=== PATIENT | male | born 1995 | race Caucasian/White ===

== ENCOUNTER 2024-03-12 00:53 | Inpatient (IN) ==
[2024-03-12 01:31] LABS: Appearance Urine Turbid (Clear); Bacteria Urine Automated 1+ (None Seen); Bilirubin Urine Negative (Negative); Blood Urine Negative (Negative); Cast Urine Automated 0-2 /lpf (0-2); Color Urine Yellow; Glucose Urine UA Negative (Negative); Ketones Urine Negative (Negative); Leukocyte Esterase Urine 1+ (Negative); Nitrite Urine Negative (Negative); Protein Urine Negative (Negative); RBC Urine Automated 0-2 /hpf (0-2); Specific Gravity Urine 1.024 (1.000-1.030); Urobilinogen Urine Negative (Negative)
[2024-03-12 01:33] LABS: Basophils # (auto) 0.05 K/uL (0.00-0.20); Basophils % (auto) 0.5 %; Immature Granulocytes # (auto) 0.05 K/uL (0.01-0.20); Immature Granulocytes % (auto) 0.5 %; Lymphocytes # (auto) 1.63 K/uL (1.20-3.40); Lymphocytes % (auto) 16.5 %; Mean Corpuscular Hemoglobin 27.9 pg (25.0-34.0); Mean Corpuscular Hgb Conc 34.2 g/dL (32.0-36.0); Mean Corpuscular Volume 81.5 fL (80.0-100.0); Mean Platelet Volume 11.4 fL (9.4-12.4); Monocytes # (auto) 0.52 K/uL (0.11-0.59); Monocytes % (auto) 5.3 %; Neutrophils # (auto) 7.51 K/uL (1.40-6.50); Neutrophils % (auto) 76.2 %; Platelet Count 215 K/uL (130-400); RDW Coefficient of Variation 12.5 % (11.5-14.5); RDW Standard Deviation 36.8 fL (36.4-46.3); White Blood Count 9.86 K/ul (4.8-10.8)
[2024-03-12 01:50] LABS: Albumin Globulin Ratio 1.5 (0.9-2); Albumin Level 4.5 gm/dl (3.4-5.0); BUN Creatinine Ratio 15.3 (10-20); Bilirubin,Total 0.4 mg/dl (0.2-1.0); Calcium 9.5 mg/dl (8.6-10.3); Potassium 3.6 mmol/L (3.5-5.1); Total Protein 7.5 gm/dl (6.0-8.3)
[2024-03-12 01:52] LABS: Acetaminophen < 3 ug/ml (10-30); Salicylate < 3.0 mg/dl (3.0-30)
[2024-03-12 01:53] LABS: Amphetamines+Metham, Urine Pos (Neg); Barbiturates, Urine Neg (Neg); Benzodiazepine, Urine Neg (Neg); Cocaine, Urine Neg (Neg); Fentanyl, Urine Neg (Neg); MDMA (Ecstacy), Urine Pos (Neg); Marijuana, Urine Neg (Neg); Methadone, Urine Neg (Neg); Opiate, Urine Neg (Neg); Phencyclidine, Urine Neg (Neg)
[2024-03-12 02:05] LABS: Thyroid Stimulating Hormone 4.298 uIu/ml (0.300-4.500)
--- NOTE | 2024-03-12 03:57 | Emergency Department Note ---
Impression & Plan Suicidal ideation admit to [facility]. ED Provider Note NAME: JENNA COBURN AGE: 28 SEX: Female INFORMANT: Patient ED PROVIDER(S): Desi Headley DO CHIEF COMPLAINT: suicidal thoughts PLAN: Disposition: admitted to [facility]. MEDICAL DECISION MAKING: this is a 28-year-old male patient is transitioning to female who is having suicidal thoughts. Patient had a text message from her friend that was upsetting. She had thoughts of wanting to jump off of a building or overdose on pills. She has a history of autism, ADHD and PTSD. She has a history of self- mutilation. patient was medically cleared here in the emergency department. Urine looked questionably infected but patient has no urinary symptoms. Will await urine culture. Patient was evaluated by the ED psychiatric employment evaluator/case manager. She will admit herself for inpatient psychiatric care. She was accepted to 3 [facility]. Care/management discussed with: ED psychiatric employment evaluator/case manager Triage Nursing notes: reviewed and agree with them. Vital Signs: reviewed and remarkable for hypertension Chronic Medical/Social Conditions affecting care: multiple mental health issues Differential Diagnosis: mood disorder, thought disorder, suicidal ideation HPI: 28 year old Female arrives for evaluation of suicidal ideation. patient received an upsetting text message from her friend and became suicidal. She had thoughts of wanting to jump from building or overdose on pills. The patient and describes having a recent increase to her Wellbutrin level. She does follow with the psychiatrist and a therapist from [facility]. PAST MEDICAL HISTORY: [id number] diabetic, autism, ADHD, PTSD, the patient is transitioning male to female., SOCIAL HISTORY: Student at [employer]; works at [employer]. Denies any significant drug use or alcohol use. HOME MEDICATIONS: see list ALLERGIES: see list VITALS: See Below PHYSICAL EXAMINATION: HEENT: Head - normocephalic and atraumatic. Pupils are equal, round, and reactive to light. Extraocular eye muscles are intact, and sclera are anicteric. Nose - moist nasal mucosa without discharge. Mouth - moist buccal mucosa. Oropharynx is nonerythematous and there is no tonsillar exudate or edema noted. Neck: Supple; no Cervical lymphadenopathy Heart: Regular rate and rhythm. There is a normal S1 and S2 with no murmurs, clicks, or gallops appreciated. Lungs: Clear to auscultation bilaterally with no wheezes, rales, or rhonchi. Abdomen: Soft, completely nontender, nondistended, with good bowel sounds. There are no palpable pulsatile masses or hepatosplenomegaly. There is no guarding, rigidity, or rebound noted. Extremities: Contusion noted over the right ulnar styloid. no other obvious trauma. Skin: warm and dry with good turgor and no rashes. Psych: Patient describes thoughts of suicide with no attempts. Emergency Department course: The patient was evaluated in room A-7. A complete history and physical was performed. Laboratory studies were drawn as above. The patient was medically cleared. She was evaluated by the ED psychiatric employment evaluator/case manager. She is willing to admit herself voluntarily for inpatient psychiatric care. She will be admitted to 3 [facility]. Past Med/Surg History Problem List (Updated 03/12/24 @ 05:25 by Desi Headley DO) Suicidal ideation (Acute) Social History Smoking Status: Never smoker Preferred Language: Fijian Feels Safe at Home: Hesitant to Answer Gender Identity: Transgender Female Allergies Allergies Allergy/AdvReac Type Severity Reaction Status Date / Time banana Allergy Unknown Verified 03/12/24 02:10 kiwi Allergy Unknown Verified 03/12/24 02:10 mushroom Allergy Unknown Verified 03/12/24 02:10 walnut Allergy Unknown Verified 03/12/24 02:10 Home Meds Home Medications Medication Instructions Recorded Confirmed bupropion HCl 300 mg 24 hr tablet, 300 mg PO DAILY 03/12/24 03/12/24 extended release buspirone 15 mg tablet 15 mg PO BID 03/12/24 03/12/24 dextroamphetamine-amphetamine 5 mg 5 mg PO DAILY 03/12/24 03/12/24 tablet dextroamphetamine-amphetamine ER 10 mg PO DAILY 03/12/24 03/12/24 10 mg 24hr capsule,extend release (Adderall XR) estradiol valerate 20 mg/mL 2 mg IM WK 03/12/24 03/12/24 intramuscular oil medroxyprogesterone 10 mg tablet 10 mg PO DAILY 03/12/24 03/12/24 metformin 500 mg tablet 500 mg PO BID 03/12/24 03/12/24 needle (disp) 18 G 18 gauge x 1" 03/12/24 03/12/24 (BD Regular Bevel [place]) prazosin 1 mg capsule 1 mg PO HS 03/12/24 03/12/24 syringe with needle 1 mL 25 gauge 03/12/24 03/12/24 x 5/8" (BD Tuberculin Syringe) Results & Data (ED) Vital Signs Vital Signs - 24 hr 03/12/24 00:59 03/12/24 05:02 Temperature 36.7 C Temperature Source Oral Pulse Rate 97 H Pulse Rate [Left Finger] 90 Pulse Rhythm [Left Finger] Regular Pulse Strength [Left Finger] Normal Respiratory Rate 16 18 Respiratory Effort / Characteristics Non-Labored Non-Labored Spontaneous Respiratory Depth Normal Normal Respiratory Pattern Regular Regular Blood Pressure 150/84 H Blood Pressure [Left Arm] 133/80 Blood Pressure Mean 106 Blood Pressure Mean [Left Arm] 97 Pulse Oximetry 99 99 Oxygen Delivery Method Room Air Room Air Sepsis Recent Fever Within 48 Hours No Sepsis New/Unexplained Change in Mental Status N/A Sepsis Action Taken by Nursing No Action Required Laboratory Data 03/12/24 01:10 03/12/24 01:10 Lab Results 03/12/24 03/12/24 03/12/24 Range/Units 00:58 01:10 01:50 WBC 9.86 (4.8-10.8) K/ul RBC 4.38 (4.20-5.40) M/uL Hgb 12.2 (12.0-16.0) g/dl Hct 35.7 L (37.0-47.0) % MCV 81.5 (80.0-100.0) fL MCH 27.9 (25.0-34.0) pg MCHC 34.2 (32.0-36.0) g/dL RDW Std Deviation 36.8 (36.4-46.3) fL RDW Coeff of Celso 12.5 (11.5-14.5) % Plt Count 215 (130-400) K/uL MPV 11.4 (9.4-12.4) fL Immature Gran % (Auto) 0.5 % Neut % (Auto) 76.2 % Lymph % (Auto) 16.5 % Clinch % (Auto) 5.3 % Eos % (Auto) 1.0 % Baso % (Auto) 0.5 % Neut # (Auto) 7.51 H (1.40-6.50) K/uL Lymph # (Auto) 1.63 (1.20-3.40) K/uL Clinch # (Auto) 0.52 (0.11-0.59) K/uL Eos # (Auto) 0.10 (0.00-0.50) K/uL Baso # (Auto) 0.05 (0.00-0.20) K/uL Immature Gran # (Auto) 0.05 (0.01-0.20) K/uL Sodium 135 L (136-145) mmol/L Potassium 3.6 (3.5-5.1) mmol/L Chloride 104 (98-107) mmol/L Carbon Dioxide 22 (21-32) mmol/L Anion Gap 9 (3-11) BUN 11 (6-23) mg/dl Creatinine 0.72 (0.6-1.2) mg/dl Est Cr Clr Drug Dosing 147.2 ml/min eGFR 117.45 BUN/Creatinine Ratio 15.3 (10-20) Glucose 102 H (70-99(Fasting)) mg/dl Calcium 9.5 (8.6-10.3) mg/dl Total Bilirubin 0.4 (0.2-1.0) mg/dl AST 11 L (13-39) U/L ALT 10 (7-52) U/L Alkaline Phosphatase 47 (34-104) U/L Total Protein 7.5 (6.0-8.3) gm/dl Albumin 4.5 (3.4-5.0) gm/dl Globulin 3.0 (2.5-4.0) gm/dl Albumin/Globulin Ratio 1.5 (0.9-2) TSH 4.298 (0.300-4.500) uIu/ml Urine Color Yellow Urine Appearance Turbid A (Clear) Urine pH 7.0 (4.5-7.5) Ur Specific Goodman 1.024 (1.000-1.030) Urine Protein Negative (Negative) Urine Glucose (UA) Negative (Negative) Urine Ketones Negative (Negative) Urine Blood Negative (Negative) Urine Nitrite Negative (Negative) Urine Bilirubin Negative (Negative) Urine Urobilinogen Negative (Negative) Ur Leukocyte Esterase 1+ H (Negative) Urine WBC (Auto) 11-20 H (0-5) /hpf Urine RBC (Auto) 0-2 (0-2) /hpf U Hyaline Cast (Auto) 0-2 (0-2) /lpf U Epithel Cells (Auto) 6-10 H (0-2) /hpf Urine Bacteria (Auto) 1+ H (None Seen) Salicylates < 3.0 L (3.0-30) mg/dl Urine Opiates Screen Neg (Neg) Ur Methadone, Qual Neg (Neg) Urine Fentanyl Screen Neg (Neg) Acetaminophen < 3 L (10-30) ug/ml Urine Barbiturates Neg (Neg) Ur Phencyclidine (PCP) Neg (Neg) U Amphetamin/Meth Scrn Pos H (Neg) MDMA (Ecstasy) Screen Pos H (Neg) U Benzodiazepines Scrn Neg (Neg) Ur Cocaine Metabolite Neg (Neg) U Marijuana (THC) Screen Neg (Neg) Ethyl Alcohol mg/dL < 10.0 (<10.0) mg/dl SARS-CoV-2, RNA, NAAT NEGATIVE (NEGATIVE) Discharge Plan Visit Data Chief Complaint: Mental Health Evaluation ED Provider: Desi Headley Discharge Problem: Suicidal ideation Patient Disposition: Admitted As Inpatient Prescriptions Prescriptions: No Action medroxyprogesterone 10 mg tablet 10 mg PO DAILY metformin 500 mg tablet 500 mg PO BID Rx Instructions: with meals prazosin 1 mg capsule 1 mg PO HS (DME) needle (disp) 18 G [BD Regular [place]vel [place]] 18 gauge x 1" needle MISCELLANEOUS (DME) BD Tuberculin Syringe 1 mL 25 gauge x 5/8" syringe MISCELLANEOUS estradiol valerate 20 mg/mL oil 2 mg IM WK dextroamphetamine-amphetamine [Adderall XR] 10 mg capsule,extended release 24hr 10 mg PO DAILY Rx Instructions: AM dextroamphetamine-amphetamine 5 mg tablet 5 mg PO DAILY buspirone 15 mg tablet 15 mg PO BID bupropion HCl 300 mg tablet extended release 24 hr 300 mg PO DAILY
[2024-03-12] MEDS ORDERED: ALUMINUM/MAGNESIUM SUSP 30 ML UDC PO PRN (05:33)
[2024-03-12] MEDS ORDERED: SODIUM CHLORIDE 0.65% NA SOLN 45 ML (OCEAN) PRN (05:33)
[2024-03-12] MEDS ORDERED: hydrOXYzine HCl 25 MG TAB PO PRN (05:33)
[2024-03-12] MEDS ORDERED: MAGNESIUM HYDROXIDE SUSP 30 ML UDC PO PRN (05:33)
[2024-03-12] MEDS ORDERED: BISMUTH SUBSALICYLATE 262 MG CHEW PO PRN (05:33)
--- OUTSIDE RECORDS SUMMARY | 2024-03-12 05:50 | External Medical Summary | Summary of Care ---
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 follow up care consistent with assessment ASSESSMENT AND PLAN: Mdd-r, Ptsd, Adhd as per chart review Medications: continue current medications. Consider increase in Buspar, consider addition of Dextromethorphan to Wellbutrin. Continue intake during subsequent visits, explore symptoms of ocd, personality traits. Patient understood the risks, benefits, side-effects and potential complications of current psychiatric medications and gave informed consent to be prescribed psychiatric medications as described above. 2. Laboratory tests: describe EKG July 2023 nsr 3. Therapy: continue individual psychotherapy 4. RTC: Apr 12, 2024 or sooner if needed Patient was informed on ways this clinician can be reached between visits (Lumenzhart message, alternatively call to the supervisor front). Treatment options and alternatives reviewed with patient who agrees with the above plan. Information about current medications was provided to the patient including reasons why medications are being used. Patient understood the risks, benefits, side-effects, and potential complications associated with changes in medications being proposed (both medications being started and medications being discontinued or having dose changed). Patient is making an informed medical decision to follow the recommendations outlined in this note. Directed pt to call with any questions or concerns, worsening symptoms and/or ask for earlier appointment. Greater than 50% of the time was spent counseling or coordinating the care of the patient Risk assessment was performed. This is a patient being treated for chronic mental health conditionsand/or substance use disorder as characterized above; at the time of this visit, there was no indication that this patient was either a risk to self, others, or gravely disabled by symptoms of a mental illness or substance use disorder. At the time of this evaluation, there were enough protective factors in place and it was deemed safe to continue with treatment on an outpatient basis with returnto clinic in the timeframe described above. Kelli Lara participated in developing a crisis plan should he/she experience worsening of symptoms before next follow-up appointment, including being aware of what resources to use according to the urgency and severity of symptoms. Kelli Lara was able to verbalize understanding of the steps necessary to obtain help betweenappointments should be needed, from requesting a phone call, to requesting an appointment sooner, including reaching clinic after hours, or accessing emergency mental health and medical services, either at a local emergency department or by activating mobile crisis teams and EMS. Clifton Rosas DO [facility] [phone] 02/28/2024 2:05 PM documented in this encounter Plan of Treatment Upcoming Encounters Date Type Department Care Team (Late st Contact Info) Description 03/11/2024 3:30 PM EDT Telemedicine Psychology, [address] [place] [address] Argentina Souza LSW [address] [facility] [place] [id number] 04/08/2024 4:00 PM EST Office Visit Family [facility] [address] [place] [address] Analy Renteria MD [address] [place] [address] 04/12/2024 10:30 AM EST Telemedicine Pychiatry, [facility] [address] [place] [phone] Clifton Rosas, DO [address] [place] [phone] Health Maintenance Due Date Last Done Comments Pneumococcal Vaccine: Pediatrics (0 to 5 Years) and At-Risk Patients (6 to 64 Years) (1 of 2 - PCV) 2002 DTap/Tdap Vaccines (1 - Tdap) 11/04/2015 Hepatitis B Vaccine (2 of 3 - 19+ 3-dose series) 09/30/2021 09/02/2021 Diabetic Foot Exam 02/01/2024 01/31/2023, 09/02/2021 GFR 02/01/2024 01/31/2023, 03/0 06/2022, 07/14/2022, Additional history exists Diabetic Eye Exam 03/09/2024 03/09/2023, 09/02/2021 HbA1c 05/24/2024 11/22/2023, 05/15, 01/31/2023, Additional history exists Albumin/Creatinine Ratio 05/26/20242 024, 01/31/2023, 09/02/2021 Depression Monitoring 02/22/2025 02/23/2024 , 02/16/2024, 01/01/2024, Additional history exists Gonorrhea / Chlamydia Screen Discontinued 01/18/2024, 09/01/2023, 05/26/2023, Additional history exists COVID-19 Vaccine Completed 02/16/2024, , 08/20/2020, Additional history exists Influenza Vaccine (FLU shot) Completed 02/16/2024, 01/31/2023, 06/02/2022, Additional history exists HPV (Gardasil) Vaccine Aged Out No lo nger eligible based on patient's age to complete this topic MENINGOCOCCAL (MENACTRA/MENVEO) Aged Out No longer eligible based on patient's age to complete this topic documented as of this encounter Medical Devices Not on filedocumented as of this encounter Visit Diagnoses Diagnosis Episode of recurrent major depressive disorder, unspecified depression episode severity (HCC)- Primary PTSD (post-traumatic stress disorder) Posttraumatic stress disorder Attention deficit hyperactivity disorder (ADHD), unspecified ADHD type CELINA (generalized anxiety disorder) Generalized anxiety disorder documented in this encounter Care Teams Street Inspector Relationship Specialty Start Date End Date Analy Renteria MD [address] [place] [id number] PCP - General Internal Medicine 03/09/23 documented as of this encounter
--- OUTSIDE RECORDS SUMMARY | 2024-03-12 05:50 | External Medical Summary | Summary of Care ---
Author Name Unknown Organization [facility] Address [address] [facility] [place] [address] Phone [phone] Care Team Providers Care Answering Service Agent Name Role Phone Analy Renteria MD Primary Care Provider Reason for Visit * Reason Comments Follow Up * - Authorized Specialty Diagnoses / Procedures Referred By Agatha t Referred To Contact Referral ID Status Reason Start Date Expiration Date V isits Requested Visits Authorized [id number] Authorized 06/15/2023 06/13/2024 [id number] Encounter Details Date Type Department Care Team (Late st Contact Info) Description 02/23/2024 11:00 AM EDT Telemedicine Psychology, [facility] [address] [place] [address] Argentina Souza, SUSSY [address] [place] [address] TY (generalized anxiety disorder)*; Severe episode of recurrent major depressive disorder, without psychotic features (HCC) Allergies Active Allergy Reactions Criticality Noted Date Comments Banana 11/13/2019 Other reaction(s): Itching Black Rankin Pollen Allergy Skin Test Cough 05/06/2021 Other reaction(s): Itching, Swelling Food (See Comments) 09/02/2021 Plums Kiwi Extract 11/27/2019 Other reaction(s): Itching, Swelling Mushroom Extract Complex Cough 05/06/2021 Other reaction(s): Itching Shellfish-Derived Products Edema face/lips/tongue High 06/01/2021 Scallops only documented as of this encounter (statuses as of 02/27/2024) Medications Medication Sig Dispensed Refills Start Date End Date Status Estradiol Valerate 20 MG/ML Intramuscular Oil (Delestrogen)Indicati ons:Gender dysphoria in adult Inject 0.2 mL under the skin once a week. 5 mL 1 09/18/2023 Active Syringe/Needle (Disp) 25G X 5/8" 1 MLIndications:Gender dysphoria in adult Use to inject estradiol. 15 Each 4 09/18/2023 Active Needle (Disp) 18G X 1"Indications:Gender dysphoria in adult Use to draw up estradiol for injection. 15 Each 4 09/18/2023 Active medroxyPROGESTERone Acetate 10 MG Oral Tablet (Provera)Indications: Gender dysphoria in adult Take 1 Tablet by mouth in the morning. 90 Tablet 1 12/13/2023 Active metFORMIN HCl 500 MG Oral Tablet (Glucophage)Indicatio ns:Type 2 diabetes mellitus with hemoglobin A1c goal of less than 7.0% (HCC) Take 1 tab by mouth with breakfast and 2 tabs by mouth with dinner. 270 Tablet 1 12/12/2023 Active Prazosin HCl 1 MG Oral Capsule (Minipress)Indication s:PTSD (post-traumatic stress disorder) Take 1 Capsule by mouth at bedtime. 90 Capsule 1 12/12/2023 Active busPIRone HCl 15 MG Oral Tablet (Buspar) Take one tablet by mouth in the morning and one tablet by mouth at bedtime 60 Tablet 4 12/28/2023 Active buPROPion HCl ER (XL) 150 MG Oral Tablet Extended Release 24 Hour (Wellbutrin XL) Take 1 Tablet by mouth in the morning. 30 Tablet 02/02/2024 Active Amphetamine-Dextroamp hetamine 5 MG Oral Tablet (Adderall)Indications :Attention deficit disorder, unspecified hyperactivity presence Take 1 Tablet by mouth every evening. 30 Tablet 02/02/2024 Active Adderall XR 10 MG Oral Capsule Extended Release 24 HourIndications:Atten tion deficit disorder, unspecified hyperactivity presence Take 1 Capsule by mouth in the morning. 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 03/09/2023 PTSD (post-traumatic stress disorder) 01/31/2023 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 Family history of connective tissue disease 07/13 Autism spectrum disorder 06/02/2022 Diabetes mellitus without complication 2 Anxiety Depression ADD (attention deficit disorder) documented as of this encounter (statuses as of 02/27/2024) Resolved Problems Problem Noted Date Diagnosed Date Resolved Date Food insecurity 09/20/2021 06/29/2022 Overview: Per [facility] Protocol Obesity, Class I, BMI 30.0-3 4.9 (see actual BMI) 01/21/2021 03/09/2023 documented as of this encounter (statuses as of 02/27/2024) Immunizations Name Administration Dates Next Due COVID-19 [...] Recorded PHQ Adult Total Score 22 02/23/2024 [facility] - Occupational Stress Questionnaire Answer Date Recorded [...] 09/15/2023 Does the household have a re gular source of income? (Household - for ages [...] as of this encounter Progress Notes * Amelie Abarca LCSW - 02/27/2024 9:24 AM EDT I have discussed the patient's management with the medical trainee and agree with the note. Please refer to the documented findings and plan of care. This patient's visit today consisted of a service. I have reviewed the medical history, physical examination, diagnosis, and plan, as performed by the resident/fellow physician. Amelie Abarca LCSW * Argentina Souza LSW - 02/23/2024 11:03 AM EDT Patient location: HOME. I was not in a hospital or clinic location. After connecting through [employer], patient was verified with two unique identifiers. Patient (or authorized legal national account representative) was then informed that this was a Telemedicine visit and being conducted confidentially over secure lines. Methods to assure confidentiality were taken. Patient acknowledged consent and understanding of privacy and security of the Telemedicine visit. The patient agreed to participate. My office door was closed. No one else was in the room with me. I informed the patient that I have reviewed their record in [employer] and presented the opportunity for them to ask any questions regarding the visit today. The patient agreed to participate. Provider reviewed elements of Outpatient Services Description including limits of confidentiality, how to contact the department, risks and benefits of treatment and consent for treatment. Start Time: 11:01 Stop Time: 12:10 Total direct [id number] time: 69 minutes Confirm patient's location (and address if different from the home address documented in Epic) at the time of this appointment: ADULT THERAPY PROGRESS NOTE Rashi [place] [address] 02/23/2024 11:03 AM TYPE OF VISIT: Individual DIAGNOSIS: Generalized Anxiety Disorder Major Depressive Disorder REASON FOR FOLLOW-UP: Individual therapy Session #: 11 SESSION FOCUS: childhood history SESSION SUMMARY/NOTES: Kelli presented for the appointment with a flat affect and depressed mood. She reported some fleeting suicidal thoughts yesterday and is aware of resources and safety plan. Kelli mentioned in always a difficult season and she usually feels more depressed. When she becomes very anxious or stressed Kelli expressed she stays in her room until it becomes uncomfortable and she goes outdoors. Kelli mentioned she doesn't feel special to her friends, which is a topic that has been mentioned multiple times throughout therapy. She has a difficult time in relationships due to trauma which occurred during childhood. Supportive interventions were utilized as Kelli processed and discussed autism and support/lack ofsupport with her parents. Kelli stated she always felt like there was something wrong with her dueto her moods shifting quickly, which she now recognizes as possible BPD traits. Plan: Kelli plans to work on something to look forward to before the end of the year. She has a return appointment in two weeks and is aware how to reach me should she need a sooner appointment. PROGRESS TOWARDS GOALS: Progressing Objective Measures: Ty-7 Question 02/23/2024 10:53 AM EDT - Filed by Patient Over the last 2 weeks, how often have you been bothered by the following problems? Feeling nervous, anxious, or on edge More than half the days Not being able to stop or control worrying More than half the days Worrying too much about different things More than half the days Trouble relaxing More than half the days Being so restless that is hard to sit still More than half the days Becoming easily annoyed or irritable More than half of the days Feeling afraid as if something awful might happen More than half the days Total score of all questions (range: 0 - 21) 14 (Moderate) Phq9-Depression Question 02/23/2024 10:54 AM EDT - Filed by Patient Over the last two weeks, how often have you been bothered by any of the following problems? Little interest or pleasure in doing things More than half the days Feeling down, depressed or hopeless Nearly everyday Over the last two weeks, how often have you been bothered by any of the following problems? Trouble falling or staying asleep, or sleeping too much More than half the days Feeling tired or having little energy More than half the days Poor appetite or overeating More than half the days Feeling bad about yourself - or that you are a failure, or have let yourself or your family down Nearly everyday Trouble concentrating on things, such as reading the newspaper or watching television Nearly everyday Moving or speaking so slowly that other people could have noticed. Or the opposite - being so fidgety or restless that you have been moving around a lot more than usual Nearly everyday Thoughts that you would be better off , or of hurting yourself More than half the days Question 1 score (range: 0 - 3) 2 Question 2 score (range: 0 - 3) 3 Question 3 score (range: 0 - 3) 2 Question 4 score (range: 0 - 3) 2 Question 5 score (range: 0 - 3) 2 Question 6 score (range: 0 - 3) 3 Question 7 score (range: 0 - 3) 3 Question 8 score (range: 0 - 3) 3 Question 9 score (range: 0 - 3) 2 Sum of all PHQ9 questions. (range: 0 - 27) 22 (Severe Depression) Myc Visit Accident Related Question Question 02/23/2024 10:54 AM EDT - Filed by Patient Is this visit related to an accident? (i.e work, motor vehicle) No B-Peum-Nkotgdgx/Vbrrmm-Ldjx-Fmyhbj Question 02/23/2024 10:54 AM EDT - Filed by Patient In the past month, have you wished you were or wished you could go to sleep and not wake up? Yes In the past month, have you actually had any thoughts about killing yourself? Yes In the past month, have you thought about how you might do this? Yes In the past month, have you had any intention of acting on these thoughts of killing yourself, as opposed to you have the thoughts but you definitely would not act on them? Yes In the past month, have you started to work out or worked out the details of how to kill yourself? Do you intend to carry out this plan? No In your lifetime, have you ever done anything, started to do anything, or prepared to do anything to end your life? No INTERVENTION: Cognitive Behavioral Therapy (CBT) PATIENT EDUCATION: Verbal & written MENTAL STATUS AND BEHAVIORAL OBSERVATIONS: Appearance: within normal limits Behavior: appropriate Speech: normal pitch, normal rate, and normal volume Mood: depressed Affect: mood-congruent Thought Process: within normal limits Thought Content: Delusions: No Hallucinations: No Obsessions: No Homicidal: No Suicidal: Yes, fleeting thoughts. Sensorium: alert and oriented to person, place, time and situation Cognition: grossly intact Insight: good Judgment: good Suicide/Homicidal Assessment Validated Screening and Assessment Measures [place] Suicide Severity Rating Scale Results 02/16/2024 12:06 [place] SUICIDE SEVERITY RATING SCALE (C-SSRS) Have you wished you were or wished you could go to sleep and not wake up? (In the Past Month or Since Last Visit) Yes Have you had any actual thoughts of killing yourself? (In the Past Month or Since Last Visit) Yes Have you been thinking about how you might do this? (In the Past Month or Since Last Visit) No Have you had thoughts and had some intention of acting on them? (In the Past Month or Since Last Visit) No Have you started to work out or worked out the details of how to kill yourself? Do you intend to carry out this plan? (In the Past Month or Since Last Visit) No Have you ever done anything, started to do anything, or prepared to do anything to end your life? (Lifetime) No Was this within the past 3 months? No Level of Risk Low ADMINISTER [place] SUICIDE SCREENING IN ROOMING TOOL. Risk and Protective Factors must be completed for any positive screen (pt answers yes to any items on the CSSRS) Crisis Plan: see Crisis Plan in Treatment Plan Use Psych General Crisis Plan when [place] is No Risk or Low Risk Use [facility] Suicide Safety Plan when [place] is Moderate or High Risk, or whenever clinical judgment would indicate need for full crisis plan to be done. Outpatient Adult Therapy Treatment Plan Treatment plan was developed on 01/02/2024, treatment will continue to focus on goals below; Treatment update will occur when clinically indicated or by 06/30/2024. Patient's goals captured in patient's words: " I would like to work on learning to have a better quality of life with BPD" Expected family or significant other involvement: Not applicable Type of Service:Individual Patients Strengths and Facilitating Factors to care: Recognizes need for change, Seeking help, GoalOriented, and Attempting to realize ones potential Treatment Barriers: none identified Crisis Planning: What I can do if I ever experience a crisis (much worse symptoms, severe distress or thoughts of self-harm): Talking to loved one or friend or trusted person People I can call in the event of a crisis: Friend: Paty Sexton Additional resources I can utilize if the previous steps are ineffective (e.g: ED, hotlines): Suicide and Crisis Lifeline - 988 Patient/ Family Received Copy of Treatment Plan Duration of Treatment Frequency of Treatment Yes, sent via [employer] 8-11 sessions approximately every 2-4 weeks Patient Identified Needs/Goals Interventions Objective/ Discharge Criteria Problem/Need 1: Anxiety and Depression Cognitive Behavioral Therapy (CBT), which includes psychoeducation, cognitive restructuring, relaxation/diaphragmatic breathing, problem-solving, and behavioralactivation Reduce PHQ-9 and TY-7 rating of need by half +points and maintain over 2 consecutive visits Please choose a method to track patient's improvement based on clinical assessment: Date 01/01/24 PHQ 16 TY-7 13 #9 1 FOLLOW-UP PLAN: Return: 2 weeks Action Plan: 1. Continue Individual Therapy 2. Continue medication management with [facility]. Reminder to complete Treatment Plan Update in "Plan" section of Plan Navigator Treatment plan reviewed with the patient. Patient voices understanding and concurs with plan. SUSSY Mcdermott Division of Psychiatry & Behavioral Medicine [facility] [phone] documented in this encounter Plan of Treatment Upcoming Encounters Date Type Department Care Team (Late st Contact Info) Description 02/28/2024 2:00 PM EDT [facility] [place] [address] [facility] [place] [phone] Clifton Rosas, DO [address] [place] [address] 03/11/2024 3:30 PM EDT Telemedicine Psychology, [facility] [address] [place] [address] Argentina Souza, PRESIDENT + PUBLISHER [address] [place] [address] 04/08/2024 4:00 PM EST Office Visit Family Practice [facility] [address] [place] [address] Analy Renteria MD [address] [place] [address] Health Maintenance Due Date Last Done Comments [...] 05/15, 01/31/2023, Additional history exists Albumin/Creatinine Ratio 05/26/2024 024, 01/31/2023, 09/02/2021 Depression Monitoring 02/22/2025 02/23/2024 [...] as of this encounter Visit Diagnoses Diagnosis TY (generalized anxiety disorder)- Primary Generalized anxiety disorder Severe episode of recurrent major depressive disorder, without psychotic features (HCC) documented in this encounter Care Teams Answering Service Agent Relationship Specialty Start Date End Date Analy Renteria MD [address] [place] [address] PCP - General Internal Medicine 03/09/23 documented as of this encounter
--- OUTSIDE RECORDS SUMMARY | 2024-03-12 05:50 | External Medical Summary | Summary of Care ---
Author Name Unknown Organization [facility] Address [address] [place] [address] Phone [phone] Care Team Providers Care Composition Mixer Name Role Phone Analy Renteria MD Primary Care Provider Reason for Visit * Reason Comments Follow Up * - Authorized Specialty Diagnoses / Procedures Referred By gAatha t Referred To Contact Referral ID Status Reason Start Date Expiration Date V isits Requested Visits Authorized [id number] Authorized 06/15/2023 06/13/[phone] Encounter Details Date Type Department Care Team (Late st Contact Info) Description 02/09/2024 11:00 AM EDT Telemedicine Psychology, [facility] [address] [facility] [address] Argentina Souza, SUSSY [address] [place] [address] TY (generalized anxiety disorder)*; Major depressive disorder, recurrent episode, moderate (HCC) Allergies Active Allergy Reactions Criticality Noted Date Comments Banana 11/13/2019 Other reaction(s): Itching Black [place] Pollen Allergy Skin Test Cough 05/06/2021 Other reaction(s): Itching, Swelling Food (See Comments) 09/02/2021 Plums Kiwi Extract 11/27/2019 Other reaction(s): Itching, Swelling Mushroom Extract Complex Cough 05/06/2021 Other reaction(s): Itching Shellfish-Derived Products Edema face/lips/tongue High 06/01/2021 Scallops only documented as of this encounter (statuses as of 02/13/2024) Medications Medication Sig Dispensed Refills Start Date End Date Status Estradiol Valerate 20 MG/ML Intramuscular Oil (Delestrogen)Indicati ons:Gender dysphoria in adult Inject 0.2 mL under the skin once a week. 5 mL 1 09/18/2023 Active Syringe/Needle (Disp) 25G X 5/8" 1 MLIndications:Gender dysphoria in adult Use to inject estradiol. 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 Family history of connective tissue disease 07/13 Autism spectrum disorder 06/02/2022 Diabetes mellitus without complication Anxiety Depression ADD (attention deficit disorder) documented as of this encounter (statuses as of 02/13/2024) Resolved Problems Problem Noted Date Diagnosed Date Resolved Date Food insecurity 09/20/2021 06/29/2022 Overview: Per [facility] Protocol Obesity, Class I, BMI 30.0-3 4.9 (see actual BMI) 01/21/2021 03/09/2023 documented as of this encounter (statuses as of 02/13/2024) Immunizations Name Administration Dates Next Due COVID-19 mRNA, LNP-s, No Pre serve, 2-Dose Series (Moderna) 08/20/2020,07/23/2020 COVID-19, mRNA, LNP-s, PF, B ooster, 100mcg/0.5mg (Moderna) 07/07/2021 Hepatitis B, 20+ yrs 09/02/2021 Seasonal Influenza Virus Vac cine, Unspecified Formulation 02/01/2021 Seasonal Influenza, PF, 6 M & above, [...] Answer Date Recorded PHQ Adult Total Score 16 01/01/2024 [facility] - Occupational Stress [...] Progress Notes * Amelie Abarca LCSW - 02/13/2024 8:31 AM EDT I have discussed the patient's management with the medical trainee and agree with the note. Please refer to the documented findings and plan of care. This patient's visit today consisted of a service. I have reviewed the medical history, physical examination, diagnosis, and plan, as performed by the resident/fellow physician. Amelie Abarca LCSW * Argentina Souza LSW - 02/09/2024 11:00 AM EDT Patient location: HOME. I was not in a hospital or clinic location. After connecting through televideo, patient was verified with two unique identifiers. Patient (or authorized legal policy services representative) was then informed that this was [...] that I have reviewed their record in [facility] and presented the opportunity for them to ask any questions regarding the visit today. The patient agreed to participate. Provider reviewed elements of Outpatient Services Description including limits of confidentiality, how to contact the department, risks and benefits of treatment and consent for treatment. Start Time: 11:01 Stop Time: 12:02 Total direct fgfl-xn-psfk time: 61 minutes Confirm patient's location (and address if different from the home address documented in [facility]) at the time of this appointment: ADULT THERAPY PROGRESS [place] [address] [address] 02/09/2024 11:00 AM TYPE OF VISIT: Individual DIAGNOSIS: Major Depressive Disorder Generalized Anxiety Disorder REASON FOR FOLLOW-UP: Individual therapy Session #: 9 SESSION FOCUS: Relationships SESSION SUMMARY/NOTES: Kelli presented for the appointment with a flat affect and depressed mood. She reported cutting inthe past several weeks due to financial stressors and socially isolating. Kelli stated the financial stressors are no longer an issue but is still dealing with being socially isolated from a friend group and activities due to a legal situation in the past six months. Kelli identified feeling likejamarcus doesn't belong in the college/city where she is living and just found out she will need one more semester after this year to finish school. Kelli identified one person who has been very supportive during this time and Kelli started to become more socially interactive even when she wants to socially isolate. Kelli noted her family has been more supportive of her through this time even though they are not understanding of the situation. Kelli noted the triggers of seeing more successful or happy people make her feel more depressed. Kelli discussed a club where she is a member and the requirements have been stressful. We discussed making boundaries and how she can place those within the club. The Edin Brown was completed, and Kelli removed all means of self-harm. Resources were reviewedshould the feelings of self-harm progress. Kelli has a return appointment scheduled in one week and is aware how to reach me should she need a sooner appointment. PROGRESS TOWARDS GOALS: Objective Measures: Ty-7 Question 02/09/2024 10:53 AM EDT - Filed by Patient Over the last 2 weeks, how often have you been bothered by the following problems? Feeling nervous, anxious, or on edge More than half the days Not being able to stop or control worrying More than half the days Worrying too much about different things More than half the days Trouble relaxing Nearly every day Being so restless that is hard to sit still Nearly every day Becoming easily annoyed or irritable More than half of the days Feeling afraid as if something awful might happen More than half the days Total score of all questions (range: 0 - 21) 16 (Severe) Myc Visit Accident Related Question Question 02/09/2024 10:53 AM EDT - Filed by Patient Is this visit related to an accident? (i.e work, motor vehicle) No E-Xqnp-Gqegvunn/Fsdrus-Lxxz-Sbseuv Question 02/09/2024 10:54 AM EDT - Filed by Patient [...] you intend to carry out this plan? Yes In your lifetime, have you ever done anything, started to do anything, or prepared to do anything to end your life? No Patient Health Questionnaire-Depression Screening (Phq-9) Question 02/09/2024 10:55 AM EDT - Filed by Patient Over the last 2 weeks, how often have you been bothered by any of the following problems? Little interest or pleasure in doing things More than half the days Feeling down, depressed, or hopeless More than half the days Trouble falling or staying asleep, or sleeping too much More than half the days Feeling tired or having little energy More than half the days Poor appetite or overeating Several days Feeling bad about yourself - or that you are a failure or have let yourself or your family down More than half the days Trouble concentrating on things, such as reading the newspaper or watching television Nearly every day Moving or speaking so slowly that other people could have noticed? Or the opposite - being so fidgety or restless that you have been moving around a lot more than usual. Nearly every day Thoughts that you would be better off or hurting yourself in some way More than half the days If you checked off any problems on this questionnaire, how difficult have these problems made it for you to do your work, take care of things at home, or get along with other people? Very difficult INTERVENTION: Cognitive Behavioral Therapy (CBT) PATIENT EDUCATION: Verbal & written MENTAL STATUS AND BEHAVIORAL OBSERVATIONS: Appearance: within normal limits Behavior: within normal limits Speech: normal pitch, normal rate, and normal volume Mood: depressed Affect: appropriate Thought Process: within normal limits Thought Content: Delusions: No Hallucinations: No Obsessions: No Homicidal: No Suicidal: Yes Sensorium: alert and oriented to person, place, time and situation Cognition: grossly intact Insight: good Judgment: good Suicide/Homicidal Assessment Validated Screening and Assessment Measures [place] Suicide Severity Rating Scale Results 01/01/2024 16:28 [place] SUICIDE SEVERITY RATING SCALE (C-SSRS) Have you wished you were or wished you could go to sleep and not wake up? (In the Past Month or Since Last Visit) Yes Have you had any actual thoughts of killing yourself? (In the Past Month or Since Last Visit) No Have you been thinking about how you [...] Plan Use Psych General Crisis Plan when [place] is No Risk or Low Risk Use [facility] Suicide Safety Plan when [place] is Moderate or High Risk, or whenever clinical judgment would indicate need for full crisis plan to be done. FOLLOW-UP PLAN: Return: 1 weeks Action Plan: 1. Continue Individual Therapy 2. Continue medication management with [facility]. Reminder to complete Treatment Plan Update in "Plan" section of Plan Navigator Treatment plan reviewed with the patient. Patient voices understanding and concurs with plan. SUSSY [facility] Division of Psychiatry & Behavioral Medicine [facility] [phone] documented in this encounter Plan of Treatment Upcoming Encounters Date Type Department Care Team (Late st Contact Info) Description 02/16/2024 11:00 AM EDT Telemedicine Psychology, [facility] [address] [place] [address] Argentina Souza, SUSSY [address] [place] [address] 02/28/2024 2:00 PM EDT [facility], [facility] [place] [address] [place] [phone] Clifton Rosas, DO [address] [place] [phone] 04/08/2024 4:00 PM EST Office Visit Family Practice [facility] [address] [place] [address] Analy Renteria MD [address] [place] [address] Health Maintenance Due Date Last Done Comments Pneumococcal Vaccine: Pediatrics (0 to 5 Years) and At-Risk Patients (6 to 64 Years) (1 of 2 - PCV) 2002 DTap/Tdap Vaccines (1 - Tdap) 11/04/2015 Hepatitis B Vaccine (2 of 3 - 19+ 3-dose series) 09/30/2021 09/02/2021 COVID-19 Vaccine (4 - season) 2024 07/07/2021, 08/20/2020, 07/23/2020 Influenza Vaccine (FLU shot) (#1) 2024 01/31/2023, 06/02/2022, 02/01/2021, Additional history exists Diabetic Foot Exam 02/01/2024 01/31/2023, 09/02/2021 GFR 02/01/2024 01/31/2023, 03/0 06/2022, 07/14/2022, Additional history exists Diabetic Eye Exam 03/09/2024 03/09/2023, 09/02/2021 HbA1c 05/24/2024 11/22/2023, 05/15, 01/31/2023, Additional history exists Albumin/Creatinine Ratio 05/26/2024 024, 01/31/2023, 09/02/2021 Depression Monitoring 12/31/2024 01/01/2024 , 12/11/2023, 11/20/2023, Additional history exists Gonorrhea / Chlamydia Screen Discontinued 01/18/2024, 09/01/2023, 05/26/2023, Additional history exists HPV (Gardasil) Vaccine Aged Out No lo nger eligible based on patient's age to complete this topic MENINGOCOCCAL (MENACTRA/MENVEO) Aged Out No longer eligible based on patient's age to complete this topic documented as of this encounter Medical Devices Not on filedocumented as of this encounter Visit Diagnoses Diagnosis TY (generalized anxiety disorder)- Primary Generalized anxiety disorder Major depressive disorder, recurrent episode, moderate (HCC) Major depressive disorder, recurrent episode, moderate documented in this encounter Care Teams Composition Mixer Relationship Specialty Start Date End Date Analy Renteria MD [address] [facility] [place] [id number] PCP - General Internal Medicine 03/09/23 documented as of this encounter
--- OUTSIDE RECORDS SUMMARY | 2024-03-12 05:50 | External Medical Summary | Summary of Care ---
Author Name Unknown Organization [facility] Address [address] [place] [facility] [place] [address] Phone [phone] Care Team Providers Care Specialty Food Products Supervisor Name Role Phone Analy Renteria MD Primary Care Provider Reason for Visit * Reason Comments Follow Up * - Authorized Specialty Diagnoses / Procedures Referred By Agatha t Referred To Contact Referral ID Status Reason Start Date Expiration Date V isits Requested Visits Authorized [id number] Authorized 06/15/2023 06/13/[phone] Encounter Details Date Type Department Care Team (Late st Contact Info) Description 02/16/2024 11:00 AM EDT Telemedicine Psychology, [facility] [address] [facility] [address] Argentina Souza, SUSSY [address] [place] [address] TY (generalized anxiety disorder)*; Major depressive disorder, recurrent episode, moderate (HCC) Allergies Active Allergy Reactions Criticality Noted Date Comments Banana 11/13/2019 Other reaction(s): Itching Black [place] Pollen Allergy Skin Test Cough 05/06/2021 Other reaction(s): Itching, Swelling Food (See Comments) 09/02/2021 Plums Kiwi Extract 11/27/2019 Other reaction(s): Itching, Swelling Mushroom Extract Complex Cough 05/06/2021 Other reaction(s): Itching Shellfish-Derived Products Edema face/lips/tongue High 06/01/2021 Scallops only documented as of this encounter (statuses as of 02/20/2024) Medications Medication Sig Dispensed Refills Start Date [...] as of this encounter (statuses as of 02/20/2024) Active Problems Problem Noted Date Diagnosed Date 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 03/09/2023 PTSD (post-traumatic stress disorder) 01/31/2023 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 Family history of connective tissue disease 07/13 Autism spectrum disorder 06/02/2022 Diabetes mellitus without complication Anxiety Depression ADD (attention deficit disorder) documented as of this encounter (statuses as of 02/20/2024) Resolved Problems Problem Noted Date Diagnosed Date Resolved Date Food insecurity 09/20/2021 06/29/2022 Overview: Per [facility] Protocol Obesity, Class I, BMI 30.0-3 4.9 (see actual BMI) 01/21/2021 03/09/2023 documented as of this encounter (statuses as of 02/20/2024) Immunizations Name Administration Dates Next Due COVID-19 [...] Answer Date Recorded PHQ Adult Total Score 21 02/16/2024 [facility] of Occupat ional [facility] - Occupational Stress Questionnaire Answer [...] Progress Notes * Amelie Abarca LCSW - 02/20/2024 9:09 AM EDT I have discussed the patient's management with the medical trainee and agree with the note. Please refer to the documented findings and plan of care. This patient's visit today consisted of a service. I have reviewed the medical history, physical examination, diagnosis, and plan, as performed by the resident/fellow physician. Amelie Abarca LCSW * Argentina Souza LSW - 02/16/2024 11:00 AM EDT Patient location: HOME. I was not in a hospital or clinic location. After connecting through [employer], patient was verified with two unique identifiers. Patient (or authorized legal data entry representative) was then informed that this was [...] that I have reviewed their record in [facility] and presented the opportunity for them to ask any questions regarding the visit today. The patient agreed to participate. Provider reviewed elements of Outpatient Services Description including limits of confidentiality, how to contact the department, risks and benefits of treatment and consent for treatment. Start Time: 11:00 Stop Time: 11:46 Total direct luos-az-ywik time: 46 minutes Confirm patient's location (and address if different from the home address documented in [facility]) at the time of this appointment: ADULT THERAPY PROGRESS NOTE [address] [place] [address] 02/16/2024 11:01 AM TYPE OF VISIT: Individual DIAGNOSIS: Generalized Anxiety Disorder Major Depressive Disorder REASON FOR FOLLOW-UP: Individual therapy Session #: 10 SESSION FOCUS: Anxiety SESSION SUMMARY/NOTES: Kelli presented for the appointment on time with a flat affect and depressed mood. She reported anincrease in anxiety in the past several weeks, twitching all the time, jumping when people join a call. We reviewed events in her lifetime and recently that may have caused an increase in her anxiety. She stated the urge to self-harm is still there but she recognized the danger. She endorsed scratching herself with a pencil one time in the past week. Supportive interventions were utilized as she discussed and processed all of the above information and further how she feels about self harm. Kelli practiced a somatic exercise for anxiety but feels she would be more comfortable trying it with her looking at her body from outside rather than inside. Plan: Kelli will continue breathing and somatic exercises, and not self harm. She has an appointment in one week and is aware how to reach me should she need a future appointment. PROGRESS TOWARDS GOALS: progressing Objective Measures: Ty-7 Question 02/16/2024 10:55 AM EDT - Filed by Patient Over the last 2 weeks, how often have you been bothered by the following problems? Feeling nervous, anxious, or on edge Nearly every day Not being able to stop or control worrying Nearly every day Worrying too much about different things Nearly every day Trouble relaxing Nearly every day Being so restless that is hard to sit still Nearly every day Becoming easily annoyed or irritable Nearly every day Feeling afraid as if something awful might happen Nearly every day Total score of all questions (range: 0 - 21) 21 (Severe) Phq9-Depression Question 02/16/2024 10:56 AM EDT - Filed by Patient Over the last two weeks, how often have you been bothered by any of the following problems? Little interest or pleasure in doing things Several days Feeling down, depressed or hopeless More than half the days Over the last two weeks, how often [...] better off , or of hurting yourself Nearly everyday Question 1 score (range: 0 - 3) 1 Question 2 score (range: 0 - 3) 2 Question 3 score (range: 0 - 3) 2 Question 4 score (range: 0 - 3) 2 Question 5 score (range: 0 - 3) 2 Question 6 score (range: 0 - 3) 3 Question 7 score (range: 0 - 3) 3 Question 8 score (range: 0 - 3) 3 Question 9 score (range: 0 - 3) 3 Sum of all PHQ9 questions. (range: 0 - 27) 21 (Severe Depression) Myc Visit Accident Related Question Question 02/16/2024 10:56 AM EDT - Filed by Patient Is this visit related to an accident? (i.e work, motor vehicle) No E-Jaoj-Sehkmhkr/Cfinjf-Uknk-Rzamtl Question 02/16/2024 10:56 AM EDT - Filed by Patient In [...] volume Mood: depressed Affect: appropriate Thought Process: distracted Thought Content: Delusions: No Hallucinations: No Obsessions: No Homicidal: No Suicidal: No Sensorium: alert and oriented to person, place, time and situation Cognition: grossly intact Insight: good Judgment: good Suicide/Homicidal Assessment Validated Screening and Assessment Measures [place] Suicide Severity Rating Scale Results 02/09/2024 12:03 [place] SUICIDE SEVERITY RATING SCALE (C-SSRS) Have [...] Since Last Visit) Yes Have you had thoughts and had some intention of acting on them? (In the Past Month or Since Last Visit) Yes Have you started to work out or [...] past 3 months? No Level of Risk High ADMINISTER [place] SUICIDE SCREENING IN ROOMING TOOL. Risk and Protective Factors must be completed for any positive screen (pt answers yes to any items on the CSSRS) Crisis Plan: see Crisis Plan in Treatment Plan Use Psych General Crisis Plan when [place] is No Risk or Low Risk Use [facility] Suicide Safety Plan when [place] is Moderate or High Risk, or whenever clinical judgment would indicate need for full crisis plan to be done. FOLLOW-UP PLAN: Return: 1 weeks Action Plan: 1. Continue Individual Therapy 2. Continue medication management with [facility]. Reminder to complete Treatment Plan Update in "Plan" section of Plan Navigator Treatment plan reviewed with the patient. Patient voices understanding and concurs with plan. Argentina Souza, [facility] Division of Psychiatry & Behavioral Medicine [facility] [phone] documented in this encounter Plan of Treatment Upcoming Encounters Date Type Department Care Team (Late st Contact Info) Description 02/23/2024 11:00 AM EDT Telemedicine Psychology, [facility] [address] [facility] [place] [address] Argentina Souza LSW [address] [facility] [place] [address] 02/28/2024 2:00 PM EDT [facility] [place] [address] [place] [phone] Clifton Rosas, [address] [place] [phone] 04/08/2024 4:00 PM EST Office Visit Family Practice [facility] [address] [facility] [place] [address] Analy Renteria MD [address] [place] [address] Health Maintenance Due Date Last Done Comments Pneumococcal Vaccine: Pediatrics (0 to 5 Years) and At-Risk Patients (6 to 64 Years) (1 of 2 - PCV) 2002 DTap/Tdap Vaccines (1 - Tdap) 11/04/2015 Hepatitis B Vaccine (2 of 3 - 19+ 3-dose series) 09/30/2021 09/02/2021 Diabetic Foot Exam 02/01/2024 01/31/2023, 09/02/2021 GFR 02/01/2024 01/31/2023, 03/06/2022, 07/14/2022, Additional history exists Diabetic Eye Exam 03/09/2024 03/09/2023, 09/02/2021 HbA1c 05/24/2024 11/22/2023, 05/15, 01/31/2023, Additional history exists Albumin/Creatinine Ratio 05/26/20242 024, 01/31/2023, 09/02/2021 Depression Monitoring 02/15/2025 02/16/2024 , 01/01/2024, 12/11/2023, Additional history exists Gonorrhea / Chlamydia Screen [...] moderate documented in this encounter Care Teams Specialty Food Products Supervisor Relationship Specialty Start Date End Date Analy Renteria MD [address] [place] [address] PCP - General Internal Medicine 03/09/23 documented as of this encounter
--- OUTSIDE RECORDS SUMMARY | 2024-03-12 05:50 | External Medical Summary | Summary of Care ---
Author Name Unknown Organization [facility] Address [address] [place] [address] Phone [phone] Care Team Providers Care Sas Administrator Name Role Phone Analy Renteria MD Primary Care Provider Reason for Visit * Reason Comments Acute Urinary urgency, bur jose with urination and cloudy urine x 2 weeks. STI testing. Injection training. Encounter Details Date Type Department Care Team (Latest Contact Info) Description 01/18/2024 11:00 AM EDT Office Visit Family Practice [facility] [address] [place] [address] Analy Renteria MD [address] [facility] [place] [address] Dysuria*; Attention deficit disorder, unspecified hyperactivity presence; Autism spectrum disorder; Diabetes mellitus without complication (HCC); Dissociative identity disorder (HCC); Generalized hypermobility of joints Allergies Active Allergy Reactions Criticality Noted Date Comments Banana 11/13/2019 Other reaction(s): Itching Black [place] Pollen Allergy Skin Test Cough 05/06/2021 Other reaction(s): Itching, Swelling Food (See Comments) 09/02/2021 Plums Kiwi Extract 11/27/2019 Other reaction(s): Itching, Swelling Mushroom Extract Complex Cough 05/06/2021 Other reaction(s): Itching Shellfish-Derived Products Edema face/lips/tongue High 06/01/2021 Scallops only documented as of this encounter (statuses as of 02/07/2024) Medications Medication Sig Dispensed Refills Start Date End Date Status Estradiol Valerate 20 MG/ML Intramuscular Oil (Delestrogen)Indica tions:Gender dysphoria in adult Inject 0.2 mL under the skin once a week. 5 mL 1 09/18/2023 Active Syringe/Needle (Disp) 25G X 5/8" 1 MLIndications:Gende r dysphoria in adult Use to inject estradiol. 15 Each 09/18/2023 Active Needle (Disp) 18G X 1"Indications:Gende r dysphoria in adult Use to draw up estradiol for injection. 15 Each 09/18/2023 Active medroxyPROGESTERone Acetate 10 MG Oral [...] Capsule by mouth at bedtime. 90 Capsule 12/12/2023 Active busPIRone HCl 15 MG Oral Tablet (Buspar) Take one tablet by mouth in the morning and one tablet by mouth at bedtime 60 Tablet 4 12/28/2023 Active Spironolactone 50 MG Oral Tablet (Aldactone)Indicati ons:Gender dysphoria in adult Take 1 Tablet by mouth in the morning and 1 Tablet before bedtime. 180 Tablet 1 09/01/2023 4 Discontinue d(Medicatio n List Clean Up) buPROPion HCl ER (XL) 150 MG Oral Tablet Extended Release 24 Hour (Wellbutrin XL) Take 1 Tablet by mouth in the morning. 30 Tablet 4 11/23/2023 4 Discontinue d(Refill) Amphetamine-Dextroa mphetamine 5 MG Oral Tablet (Adderall)Indicatio ns:Attention deficit disorder, unspecified hyperactivity presence Take 1 Tablet by mouth every evening. 30 Tablet 12/14/2023 4 Discontinue d(Refill) Adderall XR 10 MG Oral Capsule Extended Release 24 HourIndications:Att ention deficit disorder, unspecified hyperactivity presence Take 1 Capsule by mouth in the morning. 30 Capsule 12/14/2023 Discontinue d(Refill) documented as of this encounter (statuses as of 02/07/2024) Active Problems Problem Noted Date Diagnosed Date 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 03/09/2023 PTSD (post-traumatic stress disorder) 01/31/2023 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 Family history of connective tissue disease 07/13 Autism spectrum disorder 06/02/2022 Diabetes mellitus without complication Anxiety Depression ADD (attention deficit disorder) documented as of this encounter (statuses as of 02/07/2024) Resolved Problems Problem Noted Date Diagnosed Date Resolved Date Food insecurity 09/20/2021 06/29/2022 Overview: Per [facility] Protocol Obesity, Class I, BMI 30.0-3 4.9 (see actual BMI) 01/21/2021 03/09/2023 documented as of this encounter (statuses as of 02/07/2024) Immunizations Name Administration Dates Next Due COVID-19 [...] Date Smoking Tobacco: Never Smokeless Tobacco: Never Tobacco Cessation:Counseling Given: Not Answered Alcohol Use Standard Drinks/Week Comments Yes 0 [...] Recorded PHQ Adult Total Score 16 01/01/2024 [facility] - Occupational Stress Questionnaire Answer Date [...] on file documented as of this encounter Last Filed Vital Signs Vital Sign Reading Time Taken Comments Blood Pressure 128/84 01/18/2024 10:56 AM EDT Pulse 91 01/18/2024 10:56 AM EDT Temperature - - Respiratory Rate - - Oxygen Saturation 99% 01/18/2024 10: 56 AM EDT Inhaled Oxygen Concentration - - Weight 92.9 kg (204 lb 12.8 oz) 024 10:56 AM EDT Height - - Body Mass Index 27.44 11/22/2023 9:54 AM EDT documented in this encounter Progress Notes * Analy Renteria MD - 01/18/2024 11:26 AM EDT Images from the original note were not included. History of Present Illness Kelli Lara is a 28 year old adult that presents for Acute (Urinary urgency, burning with urination and cloudy urine x 2 weeks. STI testing. Injection training. ) Intermittent dysuria for a couple weeks. Increased urgency. Increased frequency. Feeling dehydrated. ?slightly better, mostly the same. No fevers. No hematuria. No discharge. Some suprapubic cramping. Some mild diarrhea. No specific STI concerns, three recent partners, mostly oral. Current medications and allergies reviewed. Past medical history and problem list reviewed. Physical Exam Vitals: 01/18/24 1056 Pulse: 91 SpO2: 99% BP: 128/84 BP Readings from Last 3 Encounters: 01/18/24 128/84 11/22/23 126/84 09/18/23 128/90 Wt Readings from Last 3 Encounters: 01/18/24 92.9 kg (204 lb 12.8 oz) 11/22/23 94.8 kg (209 lb) 10/10/23 94.4 kg (208 lb 1.6 oz) Physical Exam Vitals and nursing note reviewed. Constitutional: Appearance: Normal appearance. She is not ill-appearing. Skin: Coloration: Skin is not jaundiced or pale. Neurological: Mental Status: She is alert. Psychiatric: Mood and Affect: Mood normal. Behavior: Behavior normal. I have reviewed the following results: Urinalysis, POC Assessment and Plan Dysuria Urinalysis does not clearly indicate bacterial infection. Will send for culture as well as STIs with urine and serum. Continue with good hydration. - URINALYSIS, POINT OF CARE - CULTURE, URINE, QUANTITATIVE; Future - CHLAMYDIA TRACHOMATIS AND NEISSERIA GONORRHOEAE, AMPLIFIED PROBE; Future - CULTURE, URINE, QUANTITATIVE - CHLAMYDIA TRACHOMATIS AND NEISSERIA GONORRHOEAE, AMPLIFIED PROBE - HIV ANTIGEN & ANTIBODY SCREEN W/ CONFIRMATION; Future - SYPHILIS ANTIBODY SCREEN WITH REFLEX TO RPR; Future Wrap-Up Follow Up: Return for Labs Today. | For: Labs Today Time: I spent a total of 10-19 minutes (exact time 16 mins) on the date of service in preparation, delivery, and documentation of the care provided to Kelli Lara excluding any time spent in the performance of separately billed services. documented in this encounter Plan of Treatment Upcoming Encounters Date Type Department Care Team (Late st Contact Info) Description 02/09/2024 11:00 AM EDT Telemedicine Psychology[address] [place], [place] [address] Argentina Souza LSW [address] [place] [address] 02/28/2024 2:00 PM EDT Telemedicine Pychiatry, [place] [id number] 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 10/10/2023 11:41 AM EDT Health Maintenance Due Date Last Done Comments Pneumococcal Vaccine: Pediatrics (0 to 5 Years) and At-Risk Patients (6 to 64 Years) (1 of 2 - PCV) 2002 DTap/Tdap Vaccines (1 - Tdap) 11/04/2015 Hepatitis B Vaccine (2 of 3 - 19+ 3-dose series) 09/30/2021 09/02/2021 COVID-19 Vaccine (4 - 2023- season) 2024 07/07/2021, 08/20/2020, 07/23/2020 Influenza Vaccine [...] Not on filedocumented as of this encounter Procedures Procedure Name Priority Date/Time Associated Diagnosis Comments CHLAMYDIA TRACHOMATIS AND NEISSERIA GONORRHOEAE, AMPLIFIED PROBE Routine 01/18/2024 11:18 AM EDT Dysuria CULTURE, URINE, QUANTITATIVE Routine 01/18/2024 11:18 AM EDT Dysuria URINALYSIS, POINT OF CARE Routine 01/18/2024 11:06 AM EDT Dysuria documented in this encounter Results * HIV ANTIGEN & ANTIBODY SCREEN W/ CONFIRMATION (01/18/2024 11:43 AM EDT) Pathologist [facility] [place] HIV Antigen & Antibody Negative Negative 01/19/2024 4:48 PM EDT LABORATORY [facility] Comment:Negative HIV-1/2 ant igen and antibody screening tset results usually indicate the absence of HIV-1 and HIV-2 infection. However, such negative results do not rule-out acute HIV infection. If acute HIV-1 infection is highly suspected, it is recommended that a specimen be submitted for detection of HIV-1 RNA. Blood Venous blood specimen / Unknown Venipuncture / Unknown 01/18/2024 11:43 AM EDT 01/18/2024 11:43 AM EDT Analy Renteria MD LAB BLOOD PEPE YI [facility] Organization Address City/State/ZIP Co de Phone Number LABORATORY [facility] [address] [place] [address] * CHLAMYDIA TRACHOMATIS AND NEISSERIA GONORRHOEAE, AMPLIFIED PROBE (01/18/2024 11:18 AM EDT) Chlamydia Trachomatis Result Negative Negative 01/19/2024 10:54 AM EDT LABORATORY [facility] Comment:No Chlamydia trachom atis detected by mail carriers supervisor-mediated nucleic acid amplification. Neisseria Gonorrhoeae Result Negative Negative 01/19/2024 10:54 AM EDT LABORATORY [facility] Comment:No Neisseria gonorrh oeae detected by mail carriers supervisor-mediated nucleic acid amplification. Urine Urine specimen obtained by clean catch procedure / Unknown Non-blood Collection / Unknown 01/18/2024 11:18 AM EDT 01/18/2024 11:18 AM EDT Analy Renteria MD LAB [employer] - [facility] [employer]ERAL ORDERABLES Performing Organization Address City/[facility]/ZIP Co de Phone Number LABORATORY [address] [address] * CULTURE, URINE, QUANTITATIVE (01/18/2024 11:18 AM EDT) Pathologist [facility] [place] Culture Growth No significant growth 01/19/2024 12:17 PM EDT LABORATORY [facility] Urine Urine specimen obtained by clean catch procedure / Unknown Non-blood Collection / Unknown 01/18/2024 11:18 AM EDT 01/18/2024 11:18 AM EDT Analy Renteria MD LAB MICRO - GE NERAL ORDER[employer]LES Performing Organization Address City/[facility]/ZIP Co de Phone Number LABORATORY [place] [address] [place] [address] * (ABNORMAL) URINALYSIS, POINT OF CARE (01/18/2024 11:06 AM EDT) Color, Urine Yellow Light Yellow, Yellow 01/18/2024 11:08 AM EDT LABORATORY [place] [facility] Clarity, Urine Cloudy(A) Clear 01/18/2024 11:08 AM EDT LABORATORY [place] [facility] Glucose, Urine Negative Negative mg/dL 01/18/2024 11:08 AM EDT LAB[facility]ATORY [place] [facility] Bilirubin, Urine Negative Negative 01/18/2024 11:08 AM EDT LABORATORY [place] [facility] Ketone, Urine Negative Negative mg/dL 01/18/2024 11:08 AM EDT LABORATORY [place] [facility] Specific [place], Urine 1.020 1.003 - 1.030 01/18/2024 11:08 AM EDT LABORATORY [place] [facility] Blood, Urine Negative Negative 01/18/2024 11:08 AM EDT LAB[facility]ATORY [place] [facility] pH, Urine 6.5 5.0, 5.5, 6.0, 6.5, 7.0, 7.5 units 01/18/2024 11:08 AM EDT LABORATORY [place] [facility] Protein, Urine Negative Negative mg/dL 01/18/2024 11:08 AM EDT LABORATORY [place] [facility] Urobilinogen, Urine 0.2 0.2, 1.0 mg/dL 01/18/2024 11:08 AM EDT LABORATORY [place] [facility] Nitrite, Urine Negative Negative 01/18/2024 11:08 AM EDT LAB[facility]ATORY [place] [facility] Esterase, Urine Small(A) Negative 01/18/2024 11:08 AM EDT LABORATORY [place] [facility] Urine 01/18/2024 11:0 6 AM EDT 01/18/2024 11:08 AM EDT Analy Renteria MD LAB POINT OF C ARE TEST DOCKED DEVICE UNSOLICITED RESULTS LABORATORY [place] [facility] [place] [address] documented in this encounter Visit Diagnoses Diagnosis Dysuria- Primary Attention deficit disorder, unspecified hyperactivity presence Autism spectrum disorder Autistic disorder, current or active state Diabetes mellitus without complication (HCC) Type II or unspecified type diabetes mellitus without mention of complication, not stated as uncontrolled Dissociative identity disorder (HCC) Dissociative identity disorder Generalized hypermobility of joints Other joint derangement, not elsewhere classified, multiple sites documented in this encounter Care Teams Sas Administrator Relationship Specialty Start Date End Date Analy Renteria MD [address] [place] [address] PCP - General Internal Medicine 03/09/23 documented as of this encounter
--- OUTSIDE RECORDS SUMMARY | 2024-03-12 05:50 | External Medical Summary | Summary of Care ---
Author Name Unknown Organization [facility] Address [address] [place] [facility] [place] [address] Phone [phone] Care Team Providers Care Spudder Name Role Phone Analy Renteria MD Primary Care Provider Reason for Visit * Reason Comments Follow Up * - Authorized Specialty Diagnoses / Procedures Referred By Agatha t Referred To Contact Referral ID Status Reason Start Date Expiration Date V isits Requested Visits Authorized [id number] Authorized 06/15/2023 06/13/[phone] Encounter Details Date Type Department Care Team (Late st Contact Info) Description 02/16/2024 11:00 AM EDT Telemedicine Psychology, [facility] [address] [facility] [address] Argentina Souza, SUSSY [address] [place] [address] TY (generalized anxiety disorder)*; Major depressive disorder, recurrent episode, moderate (HCC) Allergies Active Allergy Reactions Criticality Noted Date Comments Banana 11/13/2019 Other reaction(s): Itching Black [place] Pollen Allergy Skin Test Cough 05/06/2021 Other reaction(s): Itching, Swelling Food (See Comments) 09/02/2021 Plums Kiwi Extract 11/27/2019 Other reaction(s): Itching, Swelling Mushroom Extract Complex Cough 05/06/2021 Other reaction(s): Itching Shellfish-Derived Products Edema face/lips/tongue High 06/01/2021 Scallops only documented as of this encounter (statuses as of 02/16/2024) Medications Medication Sig Dispensed Refills Start Date [...] as of this encounter (statuses as of 02/16/2024) Active Problems Problem Noted Date Diagnosed Date 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 03/09/2023 PTSD (post-traumatic stress disorder) 01/31/2023 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 Family history of connective tissue disease 07/13 Autism spectrum disorder 06/02/2022 Diabetes mellitus without complication Anxiety Depression ADD (attention deficit disorder) documented as of this encounter (statuses as of 02/16/2024) Resolved Problems Problem Noted Date Diagnosed Date Resolved Date Food insecurity 09/20/2021 06/29/2022 Overview: Per [facility] Protocol Obesity, Class I, BMI 30.0-3 4.9 (see actual BMI) 01/21/2021 03/09/2023 documented as of this encounter (statuses as of 02/16/2024) Immunizations Name Administration Dates Next Due COVID-19 [...] Recorded PHQ Adult Total Score 16 01/01/2024 [facility] - Occupational Stress [...] as of this encounter Progress Notes * Argentina Souza, SUSSY - 02/16/2024 11:00 AM EDT Patient location: HOME. I was not in a hospital or clinic location. After connecting through [employer]), patient was verified with two unique identifiers. Patient (or authorized legal manufacturers service representative) was then informed that this was [...] that I have reviewed their record in [email or web address] and presented the opportunity for them to ask any questions regarding the visit today. The patient agreed to participate. Provider reviewed elements of Outpatient Services Description including limits of confidentiality, how to contact the department, risks and benefits of treatment and consent for treatment. Start Time: 11:00 Stop Time: 11:46 Total direct [id number] time: 46 minutes Confirm patient's location (and address if different from the home address documented in [facility]) at the time of this appointment: ADULT THERAPY PROGRESS NOTE Luiz, Rashi [address] [facility] [address] 02/16/2024 11:01 AM TYPE OF VISIT: Individual [...] an accident? (i.e work, motor vehicle) No [id number] Question 02/16/2024 10:56 AM EDT - Filed [...] Suicide/Homicidal Assessment Validated Screening and Assessment Measures M[place] Suicide Severity Rating Scale Results 02/09/2024 12:03 [...] Plan Use Psych General Crisis Plan when Mcewen is No Risk or Low Risk Use [facility] Suicide Safety Plan when Mcewen is Moderate or High Risk, or whenever clinical judgment would indicate need for full crisis plan to be done. FOLLOW-UP PLAN: Return: 1 weeks Action Plan: 1. Continue Individual Therapy 2. Continue medication management with [facility]. Reminder to complete Treatment Plan Update in "Plan" section of Plan Navigator Treatment plan reviewed with the patient. Patient voices understanding and concurs with plan. SUSSY [facility] Division of Psychiatry & Behavioral Medicine [facility] [phone] documented in this encounter Plan of Treatment Upcoming Encounters Date Type Department Care Team (Late st Contact Info) Description 02/23/2024 11:00 AM EDT Telemedicine Psychology, [address] [place] [address] Argentina Souza LSW [address] [place] [address] 02/28/2024 2:00 PM EDT Telemedicine Pychiatry, [facility] [address] [facility] [place] [phone] Clifton Rosas, DO [address] [place] [phone] 04/08/2024 4:00 PM EST Office Visit Family [facility] [address] [place] [address] Analy Renteria MD [address] [place] [address] Health Maintenance Due Date Last Done Comments [...] Ratio 05/26/2024 024, 01/31/2023, 09/02/2021 Depression Monitoring 02/15/2025 02/16/2024 [...] moderate documented in this encounter Care Teams Spudder Relationship Specialty Start Date End Date Analy Renteria MD [address] [place] [address] PCP - General Internal Medicine 03/09/23 documented as of this encounter
--- OUTSIDE RECORDS SUMMARY | 2024-03-12 05:50 | External Medical Summary | Summary of Care ---
Author Name Unknown Organization [facility] Address [address] [facility] [place] [address] Phone [phone] Care Team Providers Care Emergency Care Tech Name Role Phone Analy Renteria MD Primary Care Provider Reason for Visit * Reason Comments Follow Up * - Authorized Specialty Diagnoses / Procedures Referred By Agatha t Referred To Contact Referral ID Status Reason Start Date Expiration Date V isits Requested Visits Authorized [id number] Authorized 06/15/2023 06/13/2024 [id number] Encounter Details Date Type Department Care Team (Late st Contact Info) Description 02/23/2024 11:00 AM EDT Telemedicine Psychology, [facility] [address] [facility] [address] Argentina Souza, SUSSY [address] [place] [address] TY (generalized anxiety disorder)*; Severe episode of recurrent major depressive disorder, without psychotic features (HCC) Allergies Active Allergy Reactions Criticality Noted Date Comments Banana 11/13/2019 Other reaction(s): Itching Black [place] Pollen Allergy Skin Test Cough 05/06/2021 Other reaction(s): Itching, Swelling Food (See Comments) 09/02/2021 Plums Kiwi Extract 11/27/2019 Other reaction(s): Itching, Swelling Mushroom Extract Complex Cough 05/06/2021 Other reaction(s): Itching Shellfish-Derived Products Edema face/lips/tongue High 06/01/2021 Scallops only documented as of this encounter (statuses as of 02/23/2024) Medications Medication Sig Dispensed Refills Start Date [...] as of this encounter (statuses as of 02/23/2024) Active Problems Problem Noted Date Diagnosed Date 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 03/09/2023 PTSD (post-traumatic stress disorder) 01/31/2023 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 Family history of connective tissue disease 07/13 Autism spectrum disorder 06/02/2022 Diabetes mellitus without complication 2 Anxiety Depression ADD (attention deficit disorder) documented as of this encounter (statuses as of 02/23/2024) Resolved Problems Problem Noted Date Diagnosed Date Resolved Date Food insecurity 09/20/2021 06/29/2022 Overview: Per [facility] Protocol Obesity, Class I, BMI 30.0-3 4.9 (see actual BMI) 01/21/2021 03/09/2023 documented as of this encounter (statuses as of 02/23/2024) Immunizations Name Administration Dates Next Due COVID-19 [...] Recorded PHQ Adult Total Score 21 02/16/2024 [facility] - Occupational [...] this encounter Progress Notes * Argentina Souza, AIRLINE SECURITY REPRESENTATIVE - 02/23/2024 11:03 AM EDT Patient location: HOME. I was not in a hospital or clinic location. After connecting through televideo, patient was verified with two unique identifiers. Patient (or authorized legal dealer compliance representative) was then informed that this was [...] that I have reviewed their record in [facility] and presented the opportunity for them to ask any questions regarding the visit today. The patient agreed to participate. Provider reviewed elements of Outpatient Services Description including limits of confidentiality, how to contact the department, risks and benefits of treatment and consent for treatment. Start Time: 11:01 Stop Time: 12:10 Total direct tcph-ml-dxcy time: 69 minutes Confirm patient's location (and address if different from the home address documented in [facility]) at the time of this appointment: ADULT THERAPY [place] [address] 02/23/2024 11:03 AM TYPE OF VISIT: Individual DIAGNOSIS: Generalized Anxiety Disorder Major Depressive Disorder REASON FOR FOLLOW-UP: Individual therapy Session #: 11 SESSION FOCUS: childhood history SESSION SUMMARY/NOTES: Kelli presented for the appointment with a flat affect and depressed mood. She reported some fleeting suicidal thoughts yesterday and is aware of resources and safety plan. Kelli mentioned stacie in always a difficult season and she [...] an accident? (i.e work, motor vehicle) No L-Hrzm-Pqzyrytw/Asrqlp-Htlf-Ghvlga Question 02/23/2024 10:54 AM EDT - Filed [...] Suicide/Homicidal Assessment Validated Screening and Assessment Measures [place] Suicide Severity Rating Scale Results 02/16/2024 12:06 [...] Plan Use Psych General Crisis Plan when [place] is No Risk or Low Risk Use [facility] Suicide Safety Plan when [place] is Moderate or High Risk, or whenever [...] Treatment Frequency of Treatment Yes, sent via [employer] 8-11 sessions approximately every 2-4 weeks Patient [...] Individual Therapy 2. Continue medication management with radha. Reminder to complete Treatment Plan Update in "Plan" section of Plan Navigator Treatment plan reviewed with the patient. Patient voices understanding and concurs with plan. SUSSY Mcder[facility]ott Division of Psychiatry & Behavioral Medicine [facility] [phone] documented in this encounter Plan of Treatment Upcoming Encounters Date Type Department Care Team (Late st Contact Info) Description 02/28/2024 2:00 PM EDT [facility] [address] [facility] [place] [phone] Clifton Rosas, DO [address] [place] [phone] 03/11/2024 3:30 PM EDT Telemedicine Psychology, [facility] [address] [facility] [place] [address] Argentina Souza LSW [address] [facility] [place] [address] 04/08/2024 4:00 PM EST Office Visit Family [facility] [address] [place] [address] Analy Renteria MD [address] [place] [address] Health Maintenance Due Date Last Done Comments [...] (HCC) documented in this encounter Care Teams Emergency Care Tech Relationship Specialty Start Date End Date Analy Renteria MD [address] [place] [address] PCP - General Internal Medicine 03/09/23 documented as of this encounter
--- OUTSIDE RECORDS SUMMARY | 2024-03-12 05:50 | External Medical Summary | Summary of Care ---
Author Name Unknown Organization [facility] Address [address] [place] [facility] [place] [address] Phone [phone] Care Team Providers Care Beef Trimmer Name Role Phone Analy Renteria MD Primary Care Provider Reason for Visit * Reason Comments Follow Up * - Authorized Specialty Diagnoses / Procedures Referred By Agatha t Referred To Contact Referral ID Status Reason Start Date Expiration Date V isits Requested Visits Authorized [id number] Authorized 06/15/2023 06/13/2024 999 [id number] Encounter Details Date Type Department Care Team (Late st Contact Info) Description 02/09/2024 11:00 AM EDT Telemedicine [facility], [facility] [address] [facility] [address] Argentina Souza, SUSSY [address] [place] [address] TY (generalized anxiety disorder)*; Major depressive disorder, recurrent episode, moderate (HCC) Allergies Active Allergy Reactions Criticality Noted Date Comments Banana 11/13/2019 Other reaction(s): Itching Black [place] Pollen Allergy Skin Test Cough 05/06/2021 Other reaction(s): Itching, Swelling Food (See Comments) 09/02/2021 Plums Kiwi Extract 11/27/2019 Other reaction(s): Itching, Swelling Mushroom Extract Complex Cough 05/06/2021 Other reaction(s): Itching Shellfish-Derived Products Edema face/lips/tongue High 06/01/2021 Scallops only documented as of this encounter (statuses as of 02/12/2024) Medications Medication Sig Dispensed Refills Start Date [...] as of this encounter (statuses as of 02/12/2024) Active Problems Problem Noted Date Diagnosed Date 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 03/09/2023 PTSD (post-traumatic stress disorder) 01/31/2023 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 Family history of connective tissue disease 07/13 Autism spectrum disorder 06/02/2022 Diabetes mellitus without complication Anxiety Depression ADD (attention deficit disorder) documented as of this encounter (statuses as of 02/12/2024) Resolved Problems Problem Noted Date Diagnosed Date Resolved Date Food insecurity 09/20/2021 06/29/2022 Overview: Per [facility] Protocol Obesity, Class I, BMI 30.0-3 4.9 (see actual BMI) 01/21/2021 03/09/2023 documented as of this encounter (statuses as of 02/12/2024) Immunizations Name Administration Dates Next Due COVID-19 [...] Recorded PHQ Adult Total Score 16 01/01/2024 [facility] - Occupational Stress [...] Progress Notes * Argentina Souza, SUSSY - 02/09/2024 11:00 AM EDT Patient location: HOME. I was not in a hospital or clinic location. After connecting through [employer], patient was verified with two unique identifiers. Patient (or authorized legal front desk representative) was then informed that this was [...] that I have reviewed their record in [facility] and presented the opportunity for them to ask any questions regarding the visit today. The patient agreed to participate. Provider reviewed elements of Outpatient Services Description including limits of confidentiality, how to contact the department, risks and benefits of treatment and consent for treatment. Start Time: 11:01 Stop Time: 12:02 Total direct aube-ri-xvip time: 61 minutes Confirm patient's location (and address if different from the home address documented in [facility]) at the time of this appointment: ADULT THERAPY PROGRESS NOTE [address], [place] [address] 02/09/2024 11:00 AM TYPE OF VISIT: Individual [...] the past six months. Kelli identified feeling likeshe doesn't belong in the college/city where she [...] an accident? (i.e work, motor vehicle) No O-Rprf-Kegnwhnu/Irjibv-Vmzd-Tviqmc Question 02/09/2024 10:54 AM EDT - Filed [...] Suicide/Homicidal Assessment Validated Screening and Assessment Measures [place] Suicide Severity Rating Scale Results 01/01/2024 16:28 [...] Plan Use Psych General Crisis Plan when [place] is No Risk or Low Risk Use [facility] Suicide Safety Plan when [place] is Moderate or High Risk, or whenever clinical judgment would indicate need for full crisis plan to be done. FOLLOW-UP PLAN: Return: 1 weeks Action Plan: 1. Continue Individual Therapy 2. Continue medication management with [facility]. Reminder to complete Treatment Plan Update in "Plan" section of Plan Navigator Treatment plan reviewed with the patient. Patient voices understanding and concurs with plan. SUSSY Mcdermott Division of Psychiatry & Behavioral Medicine [facility] [phone] documented in this encounter Plan of Treatment Upcoming Encounters Date Type Department Care Team (Late st Contact Info) Description 02/16/2024 11:00 AM EDT Telemedicine Psychology, [address] [place] [address] Argentina Souaz LSW [address] [facility] [place] [phone] 02/28/2024 2:00 PM EDT [facility], [facility] [place] [address] [place] [phone] Clifton Rosas, [address] [place] [phone] 04/08/2024 4:00 PM EST Office Visit Family [facility] [address] [place] [address] Analy Renteria MD [address] [place] [address] Health Maintenance Due Date Last Done Comments [...] moderate documented in this encounter Care Teams Beef Trimmer Relationship Specialty Start Date End Date Analy Renteira MD [address] [facility] [place] [address] PCP - General Internal Medicine 03/09/23 documented as of this encounter
--- OUTSIDE RECORDS SUMMARY | 2024-03-12 05:51 | External Medical Summary | Summary of Care ---
Author Name Unknown Organization [facility] Address [address] [place] [address] Phone [phone] Care Team Providers Care Customer Account Technician Name Role Phone Analy Renteria MD Primary Care Provider Reason for Visit * Reason Comments Acute Urinary urgency, bur jose with urination and cloudy urine x 2 weeks. STI testing. Injection training. Encounter Details Date Type Department Care Team (Late st Contact Info) Description 01/18/2024 11:00 AM EDT Office Visit Family Practice [facility] [address] [place] [address] Analy Renteria MD [address] [place] [address] Dysuria* Allergies Active Allergy Reactions Criticality Noted Date Comments Banana 11/13/2019 Other reaction(s): Itching Black [place] Pollen Allergy Skin Test Cough 05/06/2021 Other reaction(s): Itching, Swelling Food (See Comments) 09/02/2021 Plums Kiwi Extract 11/27/2019 Other reaction(s): Itching, Swelling Mushroom Extract Complex Cough 05/06/2021 Other reaction(s): Itching Shellfish-Derived Products Edema face/lips/tongue High 06/01/2021 Scallops only documented as of this encounter (statuses as of 01/18/2024) Medications Medication Sig Dispensed Refills Start Date [...] estradiol for injection. 15 Each 09/18/2023 Active buPROPion HCl ER (XL) 150 MG Oral Tablet Extended Release 24 Hour (Wellbutrin XL) Take 1 Tablet by mouth in the morning. 30 Tablet 4 11/23/2023 Active medroxyPROGESTERone Acetate 10 MG Oral Tablet [...] at bedtime. 90 Capsule 1 12/12/2023 Active Amphetamine-Dextroa mphetamine 5 MG Oral Tablet (Adderall)Indicatio ns:Attention deficit disorder, unspecified hyperactivity presence Take 1 Tablet by mouth every evening. 30 Tablet 12/14/2023 Active Adderall XR 10 MG Oral Capsule Extended Release 24 HourIndications:Att ention deficit disorder, unspecified hyperactivity presence Take 1 Capsule by mouth in the morning. 30 Capsule 12/14/2023 Active busPIRone HCl 15 MG Oral Tablet (Buspar) Take one tablet by mouth in the morning and one tablet by mouth at bedtime 60 Tablet 12/28/2023 Active Spironolactone 50 MG Oral Tablet (Aldactone)Indicati ons:Gender dysphoria in adult Take 1 Tablet by mouth in the morning and 1 Tablet before bedtime. 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 Family history of connective tissue disease 07/13 Autism spectrum disorder 06/02/2022 Diabetes mellitus without complication Anxiety Depression ADD (attention deficit disorder) documented as of this encounter (statuses as of 01/18/2024) Resolved Problems Problem Noted Date Diagnosed Date Resolved Date Food insecurity 09/20/2021 06/29/2022 Overview: Per [facility] Protocol Obesity, Class I, BMI 30.0-3 4.9 (see actual BMI) 01/21/2021 03/09/2023 documented as of this encounter (statuses as of 01/18/2024) Immunizations Name Administration Dates Next Due COVID-19 [...] Recorded PHQ Adult Total Score 16 01/01/2024 [facility] - Occupational Stress [...] Description 02/28/2024 2:00 PM EDT [facility] [address] [facility] [place] [phone] Clifton Rosas, DO [address] [place] [phone] 04/08/2024 4:00 PM EST Office [facility] [place] [address] Analy Renteria MD [address] [place] [address] Pending Results Name Type Priority Associated Diagnoses Date /Time CULTURE, URINE, QUANTITATIVE Lab Routine Dysuria 01/18/2024 11:18 AM EDT CHLAMYDIA TRACHOMATIS AND NEISSERIA GONORRHOEAE, AMPLIFIED PROBE Lab Routine Dysuria 01/18/2024 11:18 AM EDT HIV ANTIGEN & ANTIBODY SCREEN W/ CONFIRMATION Lab Routine Dysuria 01/18/2024 11:43 AM EDT SYPHILIS ANTIBODY SCREEN WITH REFLEX TO RPR Lab Routine Dysuria 01/18/2024 11:43 AM EDT Scheduled Orders Name Type Priority Associated Diagnoses Orde r Schedule CULTURE, URINE, QUANTITATIVE Lab Routine Dysuria Expected: 01/18/2024, Expires: 01/17/2025 CHLAMYDIA TRACHOMATIS AND NEISSERIA GONORRHOEAE, AMPLIFIED PROBE Lab Routine Dysuria Expected: 01/18/2024, Expires: 01/17/2025 HIV ANTIGEN & ANTIBODY SCREEN W/ CONFIRMATION Lab Routine Dysuria Expected: 01/18/2024 (Approximate), Expires: 01/17/2025 SYPHILIS ANTIBODY SCREEN WITH REFLEX TO RPR Lab Routine Dysuria Expected: 01/18/2024 (Approximate), Expires: 01/17/2025 Health Maintenance Due Date Last Done Comments Pneumococcal Vaccine: Pediatrics (0 to 5 Years) and At-Risk Patients (6 to 64 Years) (1 of 2 - PCV) 2002 DTap/Tdap Vaccines (1 - Tdap) 11/04/2015 Hepatitis B Vaccine (2 of 3 - 19+ 3-dose series) 09/30/2021 09/02/2021 COVID-19 Vaccine (4 - 2022- season) 2024 07/07/2021, 08/20/2020, 07/23/2020 Influenza Vaccine [...] history exists Gonorrhea / Chlamydia Screen Discontinued 09/01/2023, 05/26/2023, 01/21/2021 HPV (Gardasil) Vaccine Aged Out No lo nger eligible based on patient's age to complete this topic MENINGOCOCCAL (MENACTRA/MENVEO) Aged Out No longer eligible based on patient's age to complete this topic documented as of this encounter Medical Devices Not on filedocumented as of this encounter Procedures Procedure Name Priority Date/Time Associated Diagnosis Comments URINALYSIS, POINT OF CARE Routine 01/18/2024 11:06 AM EDT Dysuria documented in this encounter Results * (ABNORMAL) URINALYSIS, POINT OF CARE (01/18/2024 [...] AM EDT [facility] [place] [facility] Specific Pearson, Urine 1.020 1.003 - 1.030 01/18/2024 11:08 [...] 11:08 AM EDT [facility] [place] [facility]10 Esterase, Urine Small(A) Negative 01/18/2024 11:08 AM EDT [facility] [place] [facility]10 Urine 01/18/2024 11:0 6 AM EDT 01/18/2024 11:08 AM EDT Analy Renteria MD LAB POINT OF C ARE TEST DOCKED DEVICE UNSOLICITED RESULTS [facility] [place] [address] documented in this encounter Visit Diagnoses Diagnosis Dysuria- Primary documented in this encounter Care Teams Customer Account Technician Relationship Specialty Start Date End Date Analy Renteria MD [address] [place] [address] PCP - General Internal Medicine 03/09/23 documented as of this encounter
--- OUTSIDE RECORDS SUMMARY | 2024-03-12 05:51 | External Medical Summary ---
Author Name Unknown Address Unknown Organization [id number]:[facility] - [address] [place] [id number] Laboratory Report Ordering Provider Test Date Status GUTIERREZ PATEL 01/18/2024 11:18:39 Final Observation Date Value Abnormality Reference (Units) Status Bacteria identified in Specimen by Culture 01/18/2024 11:18:39 No significant growth Final Test: Culture, Urine, Quanti tative
Specimen Source: Urine, Clean Catch
Specimen Type: Urine
Specimen Date: 01/18/2024 [id number]
Result Date: 01/19/2024 1217
Result Status: Final result
Resulting Lab: [facility]
[address]
[place] [address]

CULTURE

No significant growth

null Performing Location [facility] - [address] [facility] [address]
--- OUTSIDE RECORDS SUMMARY | 2024-03-12 05:51 | External Medical Summary ---
Author Name Unknown Address Unknown Organization [id number][facility] [place] [facility] [address] [facility] [address] [facility] [address] Laboratory Report Ordering Provider Test Date Status GUTIERREZ PATEL 01/18/2024 11:43:35 Final Observation Date Value Abnormality Reference (Units ) Status HIV 1+2 Ab+HIV1 p24 Ag [Presence] in Serum or Plasma by Immunoassay 01/18/2024 11:43:35 Negative Negative Final Negative HIV-1/2 antigen and antibody screening tset results usually indicate the absence of HIV-1 and HIV-2 infection. However, such negative results do not rule-out acute HIV infection. If acute HIV-1 infection is highly suspected, it is recommended that a specimen be submitted for detection of HIV-1 RNA. Performing Location [facility] [place] [facility] [address] [facility] [place] [address]
--- OUTSIDE RECORDS SUMMARY | 2024-03-12 05:51 | External Medical Summary ---
Author Name Unknown Address Unknown Organization [id number]:[facility] [place] [address] [place] [address] Laboratory Report Ordering Provider Test Date Status GUTIERREZ PATEL 01/18/2024 11:43:35 Final Observation Date Value Abnormality Reference (Units ) Status Treponema pallidum Ab [Presence] in Serum by Immunoassay 01/18/2024 11:43:35 Nonreactive Nonreactive Final No serologic evidence of syp hilis. No additional testing clinicially indicated at this time. Consider repeat testing in 2-4 weeks if acute or primary syphilis is suspected. Performing Location [facility] [place] - [address] [place] [address]
--- OUTSIDE RECORDS SUMMARY | 2024-03-12 05:51 | External Medical Summary | Summary of Care ---
Author Name Unknown Organization [facility] Address [address] [place] [address] Phone [phone] Care Team Providers Care Inspector Barrel Name Role Phone Analy Renteria MD Primary Care Provider Reason for Visit * Reason Onset Date Comments Appointment Canceled 01/12/2024 Encounter Details Date Type Department Care Team (Late st Contact Info) Description 01/12/2024 Telephone Elizabeth Dee [address] [place] [address] Argentina Souza, [facility] [address] [place] [address] Appointment Canceled Allergies Active Allergy Reactions Criticality Noted Date Comments Banana 11/13/2019 Other reaction(s): Itching Black [place] Pollen Allergy Skin Test Cough 05/06/2021 Other reaction(s): Itching, Swelling Food (See Comments) 09/02/2021 Plums Kiwi Extract 11/27/2019 Other reaction(s): Itching, Swelling Mushroom Extract Complex Cough 05/06/2021 Other reaction(s): Itching Shellfish-Derived Products Edema face/lips/tongue High 06/01/2021 Scallops only documented as of this encounter (statuses as of 01/12/2024) Medications Medication Sig Dispensed Refills Start Date End Date Status Spironolactone 50 MG Oral Tablet (Aldactone)Indicatio ns:Gender dysphoria in adult Take 1 Tablet by mouth in the morning and 1 Tablet before bedtime. 180 Tablet 1 09/01/2023 Active Additional Information Patient not taking.Reported on 11/22/2023 Estradiol Valerate 20 MG/ML Intramuscular Oil (Delestrogen)Indicat ions:Gender dysphoria in adult Inject 0.2 mL under the skin once a week. 5 mL 1 09/18/2023 Active Syringe/Needle (Disp) 25G X 5/8" 1 MLIndications:Gender dysphoria in adult Use to inject estradiol. 15 Each 4 09/18/2023 Active Needle (Disp) 18G X 1"Indications:Gender dysphoria in adult Use to draw up estradiol for injection. 15 Each 4 09/18/2023 Active buPROPion HCl ER (XL) 150 MG Oral Tablet Extended Release 24 Hour (Wellbutrin XL) Take 1 Tablet by mouth in the morning. 30 Tablet 4 11/23/2023 Active medroxyPROGESTERone Acetate 10 MG Oral Tablet (Provera)Indications :Gender dysphoria in adult Take 1 Tablet by mouth in the morning. 90 Tablet 1 12/13/2023 Active metFORMIN HCl 500 MG Oral Tablet (Glucophage)Indicati ons:Type 2 diabetes mellitus with hemoglobin A1c goal of less than 7.0% (HCC) Take 1 tab by mouth with breakfast and 2 tabs by mouth with dinner. 270 Tablet 1 12/12/2023 Active Prazosin HCl 1 MG Oral Capsule (Minipress)Indicatio ns:PTSD (post-traumatic stress disorder) Take 1 Capsule by mouth at bedtime. 90 Capsule 1 12/12/2023 Active Amphetamine-Dextroam phetamine 5 MG Oral Tablet (Adderall)Indication s:Attention deficit disorder, unspecified hyperactivity presence Take 1 Tablet by mouth every evening. 30 Tablet 12/14/2023 Active Adderall XR 10 MG Oral Capsule Extended Release 24 HourIndications:Atte ntion deficit disorder, unspecified hyperactivity presence Take 1 Capsule by mouth in the morning. 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 Family history of connective tissue disease 07/13 Autism spectrum disorder 06/02/2022 Diabetes mellitus without complication Anxiety Depression ADD (attention deficit disorder) documented as of this encounter (statuses as of 01/12/2024) Resolved Problems Problem Noted Date Diagnosed Date Resolved Date Food insecurity 09/20/2021 06/29/2022 Overview: Per [facility] Protocol Obesity, Class I, BMI 30.0-3 4.9 (see actual BMI) 01/21/2021 03/09/2023 documented as of this encounter (statuses as of 01/12/2024) Immunizations Name Administration Dates Next Due COVID-19 [...] Recorded PHQ Adult Total Score 16 01/01/2024 [facility] - Occupational Stress [...] on file documented as of this encounter Miscellaneous Notes * Telephone Encounter - Angelica Elkins OSA - 01/12/2024 9:41 AM EDT Left voice message for cancellation on 01/28/25 with Argentina Souza documented in this encounter Plan of Treatment Upcoming Encounters Date Type Department Care Team (Late st Contact Info) Description 02/28/2024 2:00 PM EDT Telemedicine Pychiatry, [facility] [address] [facility] [place] [phone] Clifton Rosas, DO [address] [place] [phone] 04/08/2024 4:00 PM EST Office Visit Family Practice [facility] [address] [place] [phone] Analy Renteria MD [address] [facility] [place] [address] Health Maintenance Due Date Last Done Comments Pneumococcal Vaccine: Pediatrics (0 to 5 Years) and At-Risk Patients (6 to 64 Years) (1 of 2 - PCV) 2002 DTap/Tdap Vaccines (1 - Tdap) 11/04/2015 Hepatitis B Vaccine (2 of 3 - 19+ 3-dose series) 09/30/2021 09/02/2021 COVID-19 Vaccine (4 - 2022-24 season) 2023 07/07/2021, 08/20/2020, 07/23/2020 Influenza Vaccine (FLU shot) [...] Not on filedocumented as of this encounter Care Teams Inspector Barrel Relationship Specialty Start Date End Date Analy Renteria MD [address] [facility] [place] [address] PCP - General Internal Medicine 03/09/23 documented as of this encounter
--- OUTSIDE RECORDS SUMMARY | 2024-03-12 05:51 | External Medical Summary ---
Author Name Unknown Address Unknown Organization [id number]:[facility] [place] [address] Laboratory Report Ordering Provider Test Date Status GUTIERREZ PATEL 01/18/2024 11:06:00 Final Observation Date Value Abnormality Reference (Units ) Status Color of Urine by Auto 01/18/2024 11:06:00 Yellow Light Yellow, Yellow Final Clarity, Urine 01/18/2024 11:06:00 Cloudy Abnormal Clear Final Glucose [Mass/volume] in Urine by Automated test strip 01/18/2024 11:06:00 Negative Negative (mg/dL) Final Bilirubin.total [Presence] in Urine by Automated test strip 01/18/2024 11:06:00 Negative Negative Final Ketones [Mass/volume] in Urine by Automated test strip 01/18/2024 11:06:00 Negative Negative (mg/dL) Final Specific gravity, Urine 01/18/2024 11:06:00 1.020 1.003-1.030 Final Hemoglobin [Presence] in Urine by Automated test strip 01/18/2024 11:06:00 Negative Negative Final pH, Urine 01/18/2024 11:06:00 6.5 5.0, 5.5, 6.0, 6.5, 7.0, 7.5 (units) Final Protein [Mass/volume] in Urine by Automated test strip 01/18/2024 11:06:00 Negative Negative (mg/dL) Final Urobilinogen, Urine 01/18/2024 11:06:00 0.2 0.2, 1.0 (mg/dL) Final Nitrite [Presence] in Urine by Automated test strip 01/18/2024 11:06:00 Negative Negative Final Leukocyte esterase [Presence] in Urine by Automated test strip 01/18/2024 11:06:00 Small Abnormal Negative Final Performing Location [facility] [place] [address]
--- OUTSIDE RECORDS SUMMARY | 2024-03-12 05:51 | External Medical Summary | Summary of Care ---
Author Name Unknown Organization [facility] Address [address] [place] [address] Phone [phone] Care Team Providers Care Pellet Press Operator Name Role Phone Analy Renteria MD Primary Care Provider Reason for Visit * Reason Comments Follow Up * - Authorized Specialty Diagnoses / Procedures Referred By Agatha t Referred To Contact Referral ID Status Reason Start Date Expiration Date V isits Requested Visits Authorized [id number] Authorized 06/15/2023 06/13/[id number] Encounter Details Date Type Department Care Team (Late st Contact Info) Description 01/01/2024 10:00 AM EDT Telemedicine Psychology, [address] [place] [address] Argentina Souza LSW [address] [place] [address] TY (generalized anxiety disorder)*; Major depressive disorder, recurrent episode, moderate (HCC) Allergies Active Allergy Reactions Criticality Noted Date Comments Banana 11/13/2019 Other reaction(s): Itching Black [place] Pollen Allergy Skin Test Cough 05/06/2021 Other reaction(s): Itching, Swelling Food (See Comments) 09/02/2021 Plums Kiwi Extract 11/27/2019 Other reaction(s): Itching, Swelling Mushroom Extract Complex Cough 05/06/2021 Other reaction(s): Itching Shellfish-Derived Products Edema face/lips/tongue High 06/01/2021 Scallops only documented as of this encounter (statuses as of 01/22/2024) Medications Medication Sig Dispensed Refills Start Date [...] by mouth in the morning. 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 Family history of connective tissue disease 07/13 Autism spectrum disorder 06/02/2022 Diabetes mellitus without complication Anxiety Depression ADD (attention deficit disorder) documented as of this encounter (statuses as of 01/22/2024) Resolved Problems Problem Noted Date Diagnosed Date Resolved Date Food insecurity 09/20/2021 06/29/2022 Overview: Per [facility] Protocol Obesity, Class I, BMI 30.0-3 4.9 (see actual BMI) 01/21/2021 03/09/2023 documented as of this encounter (statuses as of 01/22/2024) Immunizations Name Administration Dates Next Due COVID-19 [...] Recorded PHQ Adult Total Score 16 01/01/2024 [facility] - [...] Progress Notes * Amelie Abarca LCSW - 01/22/2024 9:14 AM EDT I have discussed the patient's management with the medical trainee and agree with the note. Please refer to the documented findings and plan of care. This patient's visit today consisted of a service. I have reviewed the medical history, physical examination, diagnosis, and plan, as performed by the resident/fellow physician. Amelie Abarca LCSW * Argentina Souza LSW - 01/01/2024 10:01 AM EDT Patient location: HOME. I was not in a hospital or clinic location. After connecting through [employer], patient was verified with two unique identifiers. Patient (or authorized legal customer success representative) was then informed that this was [...] that I have reviewed their record in [employer] and presented the opportunity for them to ask any questions regarding the visit today. The patient agreed to participate. Provider reviewed elements of Outpatient Services Description including limits of confidentiality, how to contact the department, risks and benefits of treatment and consent for treatment. Start Time: 10:02 Stop Time: 10:56 Total direct [id number] time: 54 minutes Confirm patient's location (and address if different from the home address documented in Epic) at the time of this appointment: ADULT THERAPY PROGRESS NOTE Rashi Dee Radha Rashi [place] [id number] 01/01/2024 10:01 AM TYPE OF VISIT: Individual DIAGNOSIS: Major Depressive Disorder Generalized Anxiety Diirder REASON FOR FOLLOW-UP: Individual therapy Session #: 8 SESSION FOCUS: Relationships SESSION SUMMARY/NOTES: Kelli presented for the appointment on time with a bright affect and pleasant mood. She reported moving back to college and needing to change rooms due to different living expectations for the roommates. Kelli stated she is living further from work and is walking about [address] work. Kelli expressed feeling more emotional since a recent visit with friends in another state, she misses them and doesn't feel she has the same connections with people where she is currently living. Kelli noted she has lost about ten pounds in the last month without effort and is planning to contact her PCP to make them aware. She stated taking medications regularly in the past has been an issue for her, except when there are issues with refills, but she has become more proactive. Kelli updated on a legal situation she has been working on resolving for the past several months. As we discussed the situation she indicated in relationships needing clear communication regarding boundaries, from her partners for her to feel comfortable. Kelli expressed she has been closed off from her parents for a long time and tried to depend on them as little as possible, now she is starting to open up particularly with her mother. Plan: Kelli plans to work on what she would like as a small goal for therapy, as well as working on how to better live life with her BPD diagnosis. She has a return appointment in three weeks and is awarehow to reach me should she need a sooner appointment. PROGRESS TOWARDS GOALS: Recognizing her needs in relationships. Objective Measures: Ty-7 Question 01/01/2024 9:42 AM EDT - Filed by Patient Over [...] the days Becoming easily annoyed or irritable Not at all Feeling afraid as if something awful might happen Nearly every day Total score of all questions (range: 0 - 21) 13 (Moderate) Phq9-Depression Question 01/01/2024 9:42 AM EDT - Filed by Patient Over the last two weeks, how often have you been bothered by any of the following problems? Little interest or pleasure in doing things More than half the days Feeling down, depressed or hopeless More than half the days Over the last two weeks, how often have you been bothered by any of the following problems? Trouble falling or staying asleep, or sleeping too much Several days Feeling tired or having little energy More than half the days Poor appetite or overeating More than half the days Feeling bad about yourself - or that you are a failure, or have let yourself or your family down More than half the days Trouble concentrating on things, such as reading the newspaper or watching television Several days Moving or speaking so slowly that other people could have noticed. Or the opposite - being so fidgety or restless that you have been moving around a lot more than usual More than half the days Thoughts that you would be better off , or of hurting yourself More than half the days Question 1 score (range: 0 - 3) 2 Question 2 score (range: 0 - 3) 2 Question 3 score (range: 0 - 3) 1 Question 4 score (range: 0 - 3) 2 Question 5 score (range: 0 - 3) 2 Question 6 score (range: 0 - 3) 2 Question 7 score (range: 0 - 3) 1 Question 8 score (range: 0 - 3) 2 Question 9 score (range: 0 - 3) 2 Sum of all PHQ9 questions. (range: 0 - 27) 16 (Moderately Severe Depression) Myc Visit Accident Related Question Question 01/01/2024 9:42 AM EDT - Filed by Patient Is this visit related to an accident? (i.e work, motor vehicle) No C-Xboe-Xaypaark/Qlboub-Ktux-Ipsplj Question 01/01/2024 9:44 AM EDT - Filed by Patient In [...] you definitely would not act on them? No In the past month, have you started to work out or worked out the details of how to kill yourself? Do you intend to carry out this plan? No In your lifetime, have you ever done anything, started to do anything, or prepared to do anything to end your life? No Outpatient Adult Therapy Treatment Plan Treatment plan [...] Treatment Frequency of Treatment Yes, sent via Marfeel 8-11 sessions approximately every 2-4 weeks Patient [...] 01/01/24 PHQ 16 TY-7 13 #9 1 Discharge Discussed with patient: Patient continues to need treatment Collaboration of Care: Yes, provider within [facility], information is shared automatically in medical record Is this the patients' initial treatment plan? No INTERVENTION: Cognitive Behavioral Therapy (CBT) PATIENT [...] Suicide/Homicidal Assessment Validated Screening and Assessment Measures Dawson Suicide Severity Rating Scale Results 12/28/2023 13:12 [place] SUICIDE SEVERITY RATING SCALE (C-SSRS) Have [...] 3 months? No Level of Risk Low Protective Factors Cares about job/school;Help-Seeking Behaviors;Social Support/Family;Future Plans;Hopeful attitude and or beliefs;Access to appropriate services;Willing to participate in less restrictive means of help;Identifies reasons for living Risk Factors History of Depression;Anxiety;History of self-harm ADMINISTER [place] SUICIDE SCREENING IN ROOMING TOOL. Risk and Protective Factors must be completed for any positive screen (pt answers yes to any items on the CSSRS) Crisis Plan: see Crisis Plan in Treatment Plan Use Psych General Crisis Plan when Dawson is No Risk or Low Risk Use [facility] Suicide Safety Plan when Dawson is Moderate or High Risk, or whenever clinical judgment would indicate need for full crisis plan to be done. FOLLOW-UP PLAN: Return: 4 weeks Action Plan: 1. Continue Individual Therapy 2. Continue medication management with [facility]. Reminder to complete Treatment Plan Update in "Plan" section of Plan Navigator Treatment plan reviewed with the patient. Patient voices understanding and concurs with plan. SUSSY Mcdermott Division of Psychiatry & Behavioral Medicine [facility] [phone] documented in this encounter Plan of Treatment Upcoming Encounters Date Type Department Care Team (Late st Contact Info) Description 02/28/2024 2:00 PM EDT Telemedicine Pychiatry, [facility] [place] [address] [place] [phone] Clitfon Rosas, DO [address] [place] [phone] 04/08/2024 4:00 PM EST Office Visit Family [facility] [address] [place] [address] Analy Renteria MD [address] [place] [address] Health Maintenance Due Date Last Done Comments [...] moderate documented in this encounter Care Teams Pellet Press Operator Relationship Specialty Start Date End Date Analy Renteria MD [address] [place] [address] PCP - General Internal Medicine 03/09/23 documented as of this encounter
--- OUTSIDE RECORDS SUMMARY | 2024-03-12 05:51 | External Medical Summary | Summary of Care ---
Author Name Unknown Organization [facility] Address [address] [place] [address] Phone [phone] Care Team Providers Care Dancing Master Name Role Phone Analy Renteria MD Primary Care Provider Reason for Visit * Reason Comments Outpatient Testing Encounter Details Date Type Department Care Team (Late st Contact Info) Description 01/18/2024 11:50 AM EDT Laboratory Laboratory, [facility] [address] [place] [address] [facility] [address] [place] [address] Dysuria Allergies Active Allergy Reactions Criticality Noted Date Comments Banana 11/13/2019 Other reaction(s): Itching Black [place] Pollen Allergy Skin Test Cough 05/06/2021 Other [...] at bedtime. 90 Capsule 1 12/12/2023 Active Amphetamine-Dextroamp hetamine 5 MG Oral Tablet [...] Recorded PHQ Adult Total Score 16 01/01/2024 [facility] - Occupational Stress [...] PM EDT Gender Identity Transgender Female 01/21/2021 3 :48 PM EDT Sexual Orientation Lesbian 01/21/2021 3: 48 PM EDT Job Start Date Occupation Industry Not on file Not on file Not on file documented as of this encounter Plan of Treatment Upcoming Encounters Date Type Department Care Team (Late st Contact Info) Description 02/28/2024 2:00 PM EDT Telemedicine Pychiatry, [facility] [place] [address] [place] [address] [place] [phone] Clifton Rosas DO [address] [place] [phone] 04/08/2024 4:00 PM EST Office Visit Family [facility] [address] [facility] [place] [address] Analy Renteria MD [address] [place] [address] Pending Results Name Type Priority Associated Diagnoses Date /Time HIV ANTIGEN & ANTIBODY SCREEN W/ CONFIRMATION Lab Routine Dysuria 01/18/2024 11:43 AM EDT SYPHILIS ANTIBODY SCREEN WITH REFLEX TO RPR Lab Routine Dysuria 01/18/2024 11:43 AM EDT SYPHILIS ANTIBODY SCREEN Lab Routine Dysuria 01/18/2024 11:43 AM EDT Health Maintenance Due Date Last Done Comments Pneumococcal Vaccine: Pediatrics (0 to 5 Years) and At-Risk Patients (6 to 64 Years) (1 of 2 - PCV) 2002 DTap/Tdap Vaccines (1 - Tdap) 11/04/2015 Hepatitis B Vaccine (2 of 3 - 19+ 3-dose series) 09/30/2021 09/02/2021 COVID-19 Vaccine (4 - 2022-24 season) 2024 07/07/2021, 08/20/2020, 07/23/2020 Influenza Vaccine [...] as of this encounter Visit Diagnoses Diagnosis Dysuria documented in this encounter Care Teams Dancing Master Relationship Specialty Start Date End Date Analy Renteria MD [address] [place] [id number] PCP - General Internal Medicine 03/09/23 documented as of this encounter
--- OUTSIDE RECORDS SUMMARY | 2024-03-12 05:51 | External Medical Summary ---
Author Name Unknown Address Unknown Organization K[facility] [facility] [address] [place] [address] Laboratory Report Ordering Provider Test Date Status GUTIERREZ PATEL 01/18/2024 11:18:39 Final Observation Date Value Abnormality Reference (Units ) Status Chlamydia trachomatis rRNA [Presence] in Specimen by JUANA with probe detection 01/18/2024 11:18:39 Negative Negative Final No Chlamydia trachomatis det ected by delineator-mediated nucleic acid amplification. Neisseria gonorrhoeae rRNA [ Presence] in Specimen by JUANA with probe detection 01/18/2024 11:18:39 Negative Negative Final No Neisseria gonorrhoeae det ected by delineator-mediated nucleic acid amplification. Performing Location [facility] [facility] [address] [place] [address]
--- OUTSIDE RECORDS SUMMARY | 2024-03-12 05:51 | External Medical Summary | Summary of Care ---
Author Name Unknown Organization [facility] Address [address] [facility] [place] [address] Phone [phone] Care Team Providers Care Toolroom Attendant Name Role Phone Analy Renteria MD Primary Care Provider Reason for Visit * Reason Onset Date Comments Medication Refill 02/02/2024 Encounter Details Date Type Department Care Team (Late st Contact Info) Description 02/02/2024 Refill Psychiatry Beena Gill, [place] [address] [place] [address] Yanely Gracia CRNP Attention deficit disorder, unspecified hyperactivity presence Allergies Active Allergy Reactions Criticality Noted Date Comments Banana 11/13/2019 Other reaction(s): Itching Black [place] Pollen Allergy Skin Test Cough 05/06/2021 Other reaction(s): Itching, Swelling Food (See Comments) 09/02/2021 Plums Kiwi Extract 11/27/2019 Other reaction(s): Itching, Swelling Mushroom Extract Complex Cough 05/06/2021 Other reaction(s): Itching Shellfish-Derived Products Edema face/lips/tongue High 06/01/2021 Scallops only documented as of this encounter (statuses as of 02/02/2024) Medications Medication Sig Dispensed Refills Start Date [...] in the morning. 30 Tablet 02/02/2024 Active Amphetamine-Dextroa mphetamine 5 MG Oral Tablet (Adderall)Indicatio ns:Attention deficit disorder, unspecified hyperactivity presence Take 1 Tablet by mouth every evening. 30 Tablet 02/02/2024 Active Adderall XR 10 MG Oral Capsule Extended Release 24 HourIndications:Att ention deficit disorder, unspecified hyperactivity presence Take 1 Capsule by mouth in the morning. 30 Capsule 02/02/2024 Active buPROPion HCl ER (XL) 150 MG [...] mouth in the morning. 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 Family history of connective tissue disease 07/13 Autism spectrum disorder 06/02/2022 Diabetes mellitus without complication 2 Anxiety Depression ADD (attention deficit disorder) documented as of this encounter (statuses as of 02/02/2024) Resolved Problems Problem Noted Date Diagnosed Date Resolved Date Food insecurity 09/20/2021 06/29/2022 Overview: Per [facility] Protocol Obesity, Class I, BMI 30.0-3 4.9 (see actual BMI) 01/21/2021 03/09/2023 documented as of this encounter (statuses as of 02/02/2024) Immunizations Name Administration Dates Next Due COVID-19 [...] Recorded PHQ Adult Total Score 16 01/01/2024 [facility] [...] encounter Miscellaneous Notes * Telephone Encounter - Patt Quinn MD - 02/02/2024 3:25 PM EDTSigned Prescriptions: Disp Refills buPROPion HCl ER (XL) 150 MG Oral Tablet E*30 Tab*0 Sig: Take 1 Tablet by mouth in the morning. Authorizing Provider: PATT QUINN Amphetamine-Dextroamphetamine 5 MG Oral Ta*30 Tab*0 Sig: Take 1 Tablet by mouth every evening. Authorizing Provider: PATT QUINN Adderall XR 10 MG Oral Capsule Extended Re*30 Cap*0 Sig: Take 1 Cap ekta by mouth in the morning. Authorizing Provider: PATT QUINN * Telephone Encounter - Gail Duval LPN - 02/02/2024 2:33 PM EDT Patient calling for refill on 12/14/23. Medication was last filled on 12/14/23 with 0 refills. Patient last seen on 12/28/23 with return appointment scheduled for 02/28/24. Patient had 0 cancelled appointments and 0 NO SHOW appointments. documented in this encounter Plan of Treatment Upcoming Encounters Date Type Department Care Team (Late st Contact Info) Description 02/09/2024 11:00 AM EDT Telemedicine Psychology, [facility] [address] [facility] [place] [address] Argentina Souza, SUSSY [address] [facility] [place] [address] 02/28/2024 2:00 PM EDT Telemedicine Pychiatry, [facility] [address] [facility] [place] [phone] Clifton Rosas, DO [address] [place] [address] 04/08/2024 4:00 PM EST Office Visit Family Practice [facility] [address] [facility] [place] [address] Analy Renteria MD [address] [place] [address] Health Maintenance Due Date Last Done Comments [...] as of this encounter Visit Diagnoses Diagnosis Attention deficit disorder, unspecified hyperactivity presence documented in this encounter Care Teams Toolroom Attendant Relationship Specialty Start Date End Date Analy Renteria MD [address] [address] PCP - General Internal Medicine 03/09/23 documented as of this encounter
--- OUTSIDE RECORDS SUMMARY | 2024-03-12 05:52 | External Medical Summary | Summary of Care ---
Author Name Unknown Organization [facility] Address [address] [place] [address] Phone [phone] Care Team Providers Care Advertising Specialist Name Role Phone Analy Renteria MD Primary Care Provider Reason for Visit * Reason Comments Follow Up * - Authorized Specialty Diagnoses / Procedures Referred By Agatha t Referred To Contact Referral ID Status Reason Start Date Expiration Date V isits Requested Visits Authorized [id number] Authorized 06/15/2023 06/13/2024 [id number] Encounter Details Date Type Department Care Team (Late st Contact Info) Description 11/20/2023 1:00 PM EDT Telemedicine Psychology, [address] [place] [address] Argentina Souza LSW [address] [place] [address] TY (generalized anxiety disorder)*; Major depressive disorder, recurrent episode, moderate (HCC) Allergies Active Allergy Reactions Criticality Noted Date Comments Banana 11/13/2019 Other reaction(s): Itching Black [place] Pollen Allergy Skin Test Cough 05/06/2021 Other reaction(s): Itching, Swelling Food (See Comments) 09/02/2021 Plums Kiwi Extract 11/27/2019 Other reaction(s): Itching, Swelling Mushroom Extract Complex Cough 05/06/2021 Other reaction(s): Itching Shellfish-Derived Products Edema face/lips/tongue High 06/01/2021 Scallops only documented as of this encounter (statuses as of 11/21/2023) Medications Medication Sig Dispensed Refills Start Date End Date Status busPIRone HCl 10 MG Oral Tablet (Buspar)Indications: Anxiety Take 1 Tablet by mouth in the morning and 1 Tablet before bedtime. 180 Tablet 1 09/01/2023 Active medroxyPROGESTERone Acetate 10 MG Oral Tablet (Provera)Indications :Gender dysphoria in adult Take 1 Tablet by mouth in the morning. 90 Tablet 1 09/01/2023 Active metFORMIN HCl 500 MG Oral Tablet (Glucophage)Indicati ons:Type 2 diabetes mellitus with hemoglobin A1c goal of less than 7.0% (HCC) Take 1 tab by mouth with breakfast and 2 tabs by mouth with dinner. 270 Tablet 1 09/01/2023 Active Prazosin HCl 1 MG Oral Capsule (Minipress)Indicatio ns:PTSD (post-traumatic stress disorder) Take 1 Capsule by mouth at bedtime. 90 Capsule 1 09/01/2023 Active Spironolactone 50 MG Oral Tablet (Aldactone)Indicatio ns:Gender dysphoria in adult Take 1 Tablet by mouth in the morning and 1 Tablet before bedtime. 180 Tablet 1 09/01/2023 Active Additional Information Patient taking differently:50 mg OralDaily(AM), Reported on 09/18/2023 Estradiol Valerate 20 MG/ML Intramuscular Oil (Delestrogen)Indicat [...] for injection. 15 Each 4 09/18/2023 Active Amphetamine-Dextroam phetamine 5 MG Oral Tablet (Adderall)Indication s:Attention deficit disorder, unspecified hyperactivity presence Take 1 Tablet by mouth every evening. 30 Tablet 10/19/2023 Active Adderall XR 10 MG Oral Capsule Extended Release 24 HourIndications:Atte ntion deficit disorder, unspecified hyperactivity presence Take 1 Capsule by mouth in the morning. 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 03/09/2023 PTSD (post-traumatic stress disorder) 01/31/2023 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 Family history of connective tissue disease 07/13 Autism spectrum disorder 06/02/2022 Diabetes mellitus without complication Anxiety Depression ADD (attention deficit disorder) documented as of this encounter (statuses as of 11/21/2023) Resolved Problems Problem Noted Date Diagnosed Date Resolved Date Food insecurity 09/20/2021 06/29/2022 Overview: Per [facility] Protocol Obesity, Class I, BMI 30.0-3 4.9 (see actual BMI) 01/21/2021 03/09/2023 documented as of this encounter (statuses as of 11/21/2023) Immunizations Name Administration Dates Next Due COVID-19 [...] Date Recorded PHQ Adult Total Score 16 11/20/2023 [facility] - [...] of this encounter Progress Notes * Amelie Abraca LCSW - 11/21/2023 8:34 AM EDT I have discussed the patient's management with the medical trainee and agree with the note. Please refer to the documented findings and plan of care. This patient's visit today consisted of a service. I have reviewed the medical history, physical examination, diagnosis, and plan, as performed by the resident/fellow physician. Amelie Abarca LCSW * Argentina Souza LSW - 11/20/2023 1:04 PM EDT Patient location: HOME. I was not in a hospital or clinic location. After connecting through [employer], patient was verified with two unique identifiers. Patient (or authorized legal agency service representative) was then informed that this [...] that I have reviewed their record in [facility] and presented the opportunity for them to ask any questions regarding the visit today. The patient agreed to participate. Provider reviewed elements of Outpatient Services Description including limits of confidentiality, how to contact the department, risks and benefits of treatment and consent for treatment. Start Time: 1:02 Stop Time: 1:48 Total direct [id number] time: 46 minutes Confirm patient's location (and address if different from the home address documented in [facility]) at the time of this appointment: ADULT THERAPY PROGRESS NOTE Psychology, Rashi [address]rell[address] [place] [address] 11/20/2023 1:04 PM TYPE OF VISIT: Individual DIAGNOSIS: Generalized Anxiety Disorder Major Depressive Disorder REASON FOR FOLLOW-UP: Individual therapy Session #: 6 SESSION FOCUS: Relationship stressors SESSION SUMMARY/NOTES: Kelli presented for the appointment on time with a flat affect, which became tearful, and a depressed mood. She reported keeping boundaries with friends since the previous session and has made a newfriendship. She noted missing a relationship with a person she does not communicate with very oftenat this time. Kelli became tearful describing their relationship and processing why they no longercommunicate. Kelli expressed recognizing clear communication is very important to her and if someone isn't willing to accept her the relationship isn't worth pursuing. Kelli has a return appointment scheduled in three weeks and is aware how to reach me should she need a sooner appointment. PROGRESS TOWARDS GOALS: Kelli has maintained boundaries discussed in previous sessions. Objective Measures: Ty-7 Question 11/20/2023 12:45 PM EDT - Filed by Patient Over the last 2 weeks, how often have you been bothered by the following problems? Feeling nervous, anxious, or on edge More than half the days Not being able to stop or control worrying Several days Worrying too much about different things Several days Trouble relaxing More than half the days Being so restless that is hard to sit still More than half the days Becoming easily annoyed or irritable Several days Feeling afraid as if something awful might happen More than half the days Total score of all questions (range: 0 - 21) 11 (Moderate) Phq9-Depression Question 11/20/2023 12:46 PM EDT - Filed by Patient Over the [...] as reading the newspaper or watching television More than half the days Moving or speaking so slowly that other people could have noticed. Or the opposite - being so fidgety or restless that you have been moving around a lot more than usual More than half the days Thoughts that you would be better off , or of hurting yourself Several days Question 1 score (range: 0 - 3) 2 Question 2 score (range: 0 - 3) 2 Question 3 score (range: 0 - 3) 1 Question 4 score (range: 0 - 3) 2 Question 5 score (range: 0 - 3) 2 Question 6 score (range: 0 - 3) 2 Question 7 score (range: 0 - 3) 2 Question 8 score (range: 0 - 3) 2 Question 9 score (range: 0 - 3) 1 Sum of all PHQ9 questions. (range: 0 - 27) 16 (Moderately Severe Depression) Myc Visit Accident Related Question Question 11/20/2023 12:46 PM EDT - Filed by Patient Is this visit related to an accident? (i.e work, motor vehicle) No E-Xllh-Jyfhiuxj/Bjztqh-Cuir-Aeahkb Question 11/20/2023 12:46 PM EDT - Filed by Patient In the past month, have you wished you were or wished you could go to sleep and not wake up? Yes In the past month, have you actually had any thoughts about killing yourself? No In your lifetime, have you ever done anything, started to do anything, or prepared to do anything to end your life? No Outpatient Adult Therapy Treatment Plan Treatment plan was developed on 06/30/23, treatment will continue to focus on goals below; Treatment update will occur when clinically indicated or by 12/27/2023. Patient's goals captured in patient's words: ""I want to make sure I have meds. I am interested in exposure therapy. I am open to EMDR. I want a trauma therapist." Expected family or significant other involvement: Offer Support and Crisis Support Type of Service:Individual and Medication Management Patients Strengths and Facilitating Factors to care: Recognizes need for change, Seeking help, Attempting to realize ones potential, Manages multiple demands in life, Access to housing, Steady employment, Cooperative, Good physical health, Abstain from using alcohol and/or drugs, and Other: Self Awareness. Treatment Barriers: none identified Crisis Planning: What I can do if I ever experience a crisis (much worse symptoms, severe distress or thoughts of self-harm): Talking to loved one or friend or trusted person People I can call in the event of a crisis: Friend: Khushi Additional resources I can utilize if the previous steps are ineffective (e.g: ED, hotlines): Suicide and Crisis Lifeline - 988 Patient/ Family Received Copy of Treatment Plan Duration of Treatment Frequency of Treatment Yes, sent via [email or web address] 8-11 sessions approximately every 2-4 weeks Patient Identified Needs/Goals Interventions Objective/ Discharge Criteria Problem/Need 1: Anxiety, Depression, PTSD, and Emotional Regulation Cognitive Behavioral Therapy (CBT), which includes psychoeducation, cognitive restructuring, relaxation/diaphragmatic breathing, problem-solving, and behavioral activation PHQ<5, TY<5, and Achieve optimal treatment response on optimally safe medication regimen INTERVENTION: Cognitive Behavioral Therapy (CBT) PATIENT EDUCATION: [...] Suicide/Homicidal Assessment Validated Screening and Assessment Measures [place] Suicide Severity Rating Scale Results 11/01/2023 15:03 [place] SUICIDE SEVERITY RATING SCALE (C-SSRS) Have [...] do anything to end your life? (Lifetime) Yes Was this within the past 3 months? No Level of Risk Moderate ADMINISTER [place] SUICIDE SCREENING IN ROOMING TOOL. Risk and Protective Factors must be completed for any positive screen (pt answers yes to any items on the CSSRS) Crisis Plan: see Crisis Plan in Treatment Plan Use Psych General Crisis Plan when [place] is No Risk or Low Risk Use Ed[place] Suicide Safety Plan when [place] is Moderate or High Risk, or whenever clinical judgment would indicate need for full crisis plan to be done. FOLLOW-UP PLAN: Return: 3 weeks Action Plan: 1. Continue Individual Therapy 2. Continue medication management with [facility]. Reminder to complete Treatment Plan Update in "Plan" section of Plan Navigator Treatment plan reviewed with the patient. Patient voices understanding and concurs with plan. SUSSY Mcdermott Division of Psychiatry & Behavioral Medicine [facility] [phone] documented in this encounter Plan of Treatment Upcoming Encounters Date Type Department Care Team (Late st Contact Info) Description 11/22/2023 10:00 AM EDT Office Visit Family Practice [facility] [address] [place] [address] Analy Renteria MD [address] [place] [address] 11/30/2023 9:00 AM EDT Telemedicine Psychiatry, [facility] [address] [facility] [place] [address] Yanely Gracia CRNP [address] [place] [address] 12/11/2023 1:00 PM EDT Telemedicine Psychology, [facility] [address] [facility] [facility] [place] [address] Argentina Souza LSW [address] [facility] [place] [phone] Health Maintenance Due Date Last Done Comments Pneumococcal Vaccine: Pediatrics (0 to 5 Years) and At-Risk Patients (6 to 64 Years) (1 of 2 - PCV) 2002 DTaP,Tdap,and Td Vaccines (1 - Tdap) 11/04/2015 Hepatitis B Vaccine (2 of 3 - 19+ 3-dose series) 09/30/2021 09/02/2021 COVID-19 Vaccine (4 - 2022-24 season) 2023 07/07/2021, 08/20/2020, 07/23/2020 HbA1c 11/24/2023 05/26/2023, 01/13, 09/01/2021, Additional history exists Influenza Vaccine (FLU shot) (#1) 2024 01/31/2023, 06/02/2022, 02/01/2021, Additional history exists Diabetic Foot Exam 02/01/2024 01/31/2023, 09/02/2021 GFR 02/01/2024 01/31/2023, 03/0 06/2022, 07/14/2022, Additional history exists Diabetic Eye Exam 03/09/2024 03/09/2023, 09/02/2021 Albumin/Creatinine Ratio 05/26/2024 024, 01/31/2023, 09/02/2021 Depression Monitoring 11/19/2024 11/20/2023 , 11/01/2023, 10/18/2023, Additional history exists Gonorrhea / Chlamydia Screen [...] moderate documented in this encounter Care Teams Advertising Specialist Relationship Specialty Start Date End Date Analy Renteria MD [address] [place] [address] PCP - General Internal Medicine 03/09/23 documented as of this encounter
--- OUTSIDE RECORDS SUMMARY | 2024-03-12 05:52 | External Medical Summary ---
Author Name Unknown Address Unknown Organization [id number]:[facility] - [address] [place] [id number] Laboratory Report Ordering Provider Test Date Status GUTIERREZ PATEL 11/22/2023 10:43:02 Final Observation Date Value Abnormality Reference (Units ) Status HbA1C 11/22/2023 10:43:02 5.8 Above high normal 4. 0-5.6 (%) Final The use of HbA1c to monitor glycemic status is based on normal hemoglobin and HbA composition. This test should not be used in patients with abnormal hemoglobin that affects the half life of the red blood cell or the in vivo glycation rates. Glucose, estimated average 11/22/2023 10:43:02 120 <126 (mg/dL) Final Performing Location [facility] - [address] [place] [address]
--- OUTSIDE RECORDS SUMMARY | 2024-03-12 05:52 | External Medical Summary | Summary of Care ---
Author Name Unknown Organization [facility] Address [address] [place] [address] Phone [phone] Care Team Providers Care Safety Officer Name Role Phone Analy Renteria MD Primary Care Provider Reason for Visit * Reason Comments Follow Up * - Authorized Specialty Diagnoses / Procedures Referred By Agatha t Referred To Contact Referral ID Status Reason Start Date Expiration Date V isits Requested Visits Authorized [id number] Authorized 06/15/2023 06/13/2024 [id number] Encounter Details Date Type Department Care Team (Late st Contact Info) Description 11/20/2023 1:00 PM EDT Telemedicine Psychology, [address] [place] [address] Argentina Souza LSW [address] [place] [address] TY (generalized anxiety disorder)*; Major depressive disorder, recurrent episode, moderate (HCC) Allergies Active Allergy Reactions Criticality Noted Date Comments Banana 11/13/2019 Other reaction(s): Itching Black [place] Pollen Allergy Skin Test Cough 05/06/2021 Other [...] Recorded PHQ Adult Total Score 16 11/20/2023 [facility] - [...] Progress Notes * Amelie Abarca LCSW - 11/21/2023 8:34 AM EDT I [...] hospital or clinic location. After connecting through [employer], patient was verified with two unique identifiers. Patient (or authorized legal sales representative printing) was then informed that this was a [...] that I have reviewed their record in [email or web address] and presented the opportunity for them to ask any questions regarding the visit today. The patient agreed to participate. Provider reviewed elements of Outpatient Services Description including limits of confidentiality, how to contact the department, risks and benefits of treatment and consent for treatment. Start Time: 1:02 Stop Time: 1:48 Total direct [id number]-yn-tyqm time: 46 minutes Confirm patient's location (and address if different from the home address documented in [facility]) at the time of this appointment: ADULT THERAPY PROGRESS NOTE Psychology, Rashi [place] [address] 11/20/2023 1:04 PM TYPE OF VISIT: Individual [...] an accident? (i.e work, motor vehicle) No B-Dkrx-Hqhoygpt/Nusjnb-Ohjg-Hreekl Question 11/20/2023 12:46 PM EDT - Filed [...] Treatment Frequency of Treatment Yes, sent via [employer] 8-11 sessions approximately every 2-4 weeks Patient [...] Suicide/Homicidal Assessment Validated Screening and Assessment Measures [place] Suicide Severity Rating Scale Results 11/01/2023 15:03 [...] Plan Use Psych General Crisis Plan when [place] is No Risk or Low Risk Use Ed[place]-Brown Suicide Safety Plan when [place] is Moderate or High Risk, or whenever clinical judgment would indicate need for full crisis plan to be done. FOLLOW-UP PLAN: Return: 3 weeks Action Plan: 1. Continue Individual Therapy 2. Continue medication management with [facility]. Reminder to complete Treatment Plan Update in "Plan" section of Plan Navigator Treatment plan reviewed with the patient. Patient voices understanding and concurs with plan. SUSSY Mcdermott Division of Psychiatry & Behavioral Medicine [facility] [phone] documented in this encounter Plan of Treatment Upcoming Encounters Date Type Department Care Team (Late st Contact Info) Description 11/22/2023 10:00 AM EDT Office Visit Family Practice [facility] [address] [place] [address] Analy Renteria MD [address] [place] [address] 11/30/2023 9:00 AM EDT Telemedicine Psychiatry, [facility] [address] [facility] [place] [address] Yanely Gracia CRNP [address] [facility] [place] [address] 12/11/2023 1:00 PM EDT Telemedicine Psychology, [facility] [address] [facility] [place] [address] Argentina Souza LSW [address] [facility] [place] [phone] Health Maintenance Due Date Last Done Comments [...] moderate documented in this encounter Care Teams Safety Officer Relationship Specialty Start Date End Date Analy Renteria MD [address] [place] [address] PCP - General Internal Medicine 03/09/23 documented as of this encounter
--- OUTSIDE RECORDS SUMMARY | 2024-03-12 05:52 | External Medical Summary | Summary of Care ---
Author Name Unknown Organization [facility] Address [address] [place] [address] Phone [phone] Care Team Providers Care Linecasting Machine Keyboard Operator Name Role Phone Analy Renteria MD Primary Care Provider Reason for Visit * Reason Comments Follow Up * - Authorized Specialty Diagnoses / Procedures Referred By Agatha t Referred To Contact Referral ID Status Reason Start Date Expiration Date V isits Requested Visits Authorized [id number] Authorized 06/15/2023 06/13/2024 [id number] Encounter Details Date Type Department Care Team (Late st Contact Info) Description 12/11/2023 1:00 PM EDT Telemedicine Psychology, [address] [place] [address] Argentina Souza LSW [address] [place] [address] TY (generalized anxiety disorder)*; Major depressive disorder, recurrent episode, moderate (HCC) Allergies Active Allergy Reactions Criticality Noted Date Comments Banana 11/13/2019 Other reaction(s): Itching [place] Pollen Allergy Skin Test Cough 05/06/2021 Other reaction(s): Itching, Swelling Food (See Comments) 09/02/2021 Plums Kiwi Extract 11/27/2019 Other reaction(s): Itching, Swelling Mushroom Extract Complex Cough 05/06/2021 Other reaction(s): Itching Shellfish-Derived Products Edema face/lips/tongue High 06/01/2021 Scallops only documented as of this encounter (statuses as of 12/13/2023) Medications Medication Sig Dispensed Refills Start Date End Date Status busPIRone HCl 10 MG Oral Tablet (Buspar)Indication s:Anxiety Take 1 Tablet by mouth in the morning and 1 Tablet before bedtime. 180 Tablet 1 09/01/2023 Active Spironolactone 50 MG Oral Tablet (Aldactone)Indicat ions:Gender dysphoria in adult Take 1 Tablet by mouth in the morning and 1 Tablet before bedtime. 180 Tablet 1 09/01/2023 Active Additional Information Patient not taking.Reported on 11/22/2023 Estradiol Valerate 20 MG/ML Intramuscular Oil (Delestrogen)Indic ations:Gender dysphoria in adult Inject 0.2 mL under the skin once a week. 5 mL 1 09/18/2023 Active Syringe/Needle (Disp) 25G X 5/8" 1 MLIndications:Gend er dysphoria in adult Use to inject estradiol. 15 Each 09/18/2023 Active Needle (Disp) 18G X 1"Indications:Gend er dysphoria in adult Use to draw up estradiol for injection. 15 Each 4 09/18/2023 Active Amphetamine-Dextro amphetamine 5 MG Oral Tablet (Adderall)Indicati ons:Attention deficit disorder, unspecified hyperactivity presence Take 1 Tablet by mouth every evening. 30 Tablet 10/19/2023 Active Adderall XR 10 MG Oral Capsule Extended Release 24 HourIndications:At tention deficit disorder, unspecified hyperactivity presence Take 1 Capsule by mouth in the morning. 30 Capsule 10/19/2023 Active buPROPion HCl ER (XL) 150 MG Oral Tablet Extended Release 24 Hour (Wellbutrin XL) Take 1 Tablet by mouth in the morning. 30 Tablet 4 11/23/2023 Active medroxyPROGESTERon e Acetate 10 MG Oral Tablet (Provera)Indicatio ns:Gender dysphoria in adult Take 1 Tablet by mouth in the morning. 90 Tablet 1 09/01/2023 4 Discontinue d(Refill) metFORMIN HCl 500 MG Oral Tablet (Glucophage)Indica tions:Type 2 diabetes mellitus with hemoglobin A1c goal of less than 7.0% (HCC) Take 1 tab by mouth with breakfast and 2 tabs by mouth with dinner. 270 Tablet 1 09/01/2023 4 Discontinue d(Refill) Prazosin HCl 1 MG Oral Capsule (Minipress)Indicat ions:PTSD (post-traumatic stress disorder) Take 1 Capsule by mouth at bedtime. 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 03/09/2023 PTSD (post-traumatic stress disorder) 01/31/2023 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 Family history of connective tissue disease 07/13 Autism spectrum disorder 06/02/2022 Diabetes mellitus without complication 2 Anxiety Depression ADD (attention deficit disorder) documented as of this encounter (statuses as of 12/13/2023) Resolved Problems Problem Noted Date Diagnosed Date Resolved Date Food insecurity 09/20/2021 06/29/2022 Overview: Per [facility] Protocol Obesity, Class I, BMI 30.0-3 4.9 (see actual BMI) 01/21/2021 03/09/2023 documented as of this encounter (statuses as of 12/13/2023) Immunizations Name Administration Dates Next Due COVID-19 [...] Answer Date Recorded PHQ Adult Total Score 12 12[facility]11[facility]2023 [facility] - [facility]ational Stress Questionnaire Answer [...] Progress Notes * Argentina Souza, SUSSY - 12/11/2023 1:04 PM EDT Patient location: HOME. I was not in a hospital or clinic location. After connecting through televideo, patient was verified with two unique identifiers. Patient (or authorized legal medical sales representative) was then informed that this [...] that I have reviewed their record in [facility] and presented the opportunity for them to ask any questions regarding the visit today. The patient agreed to participate. Provider reviewed elements of Outpatient Services Description including limits of confidentiality, how to contact the department, risks and benefits of treatment and consent for treatment. Start Time: 1:03 Stop Time: 1:55 Total direct [id number] time: 52 minutes Confirm patient's location (and address if different from the home address documented in [facility]) at the time of this appointment: ADULT THERAPY PROGRESS NOTE [address] [facility] [id number] 12/11/2023 1:05 PM TYPE OF VISIT: Individual DIAGNOSIS: Major Depressive Disorder, Generalized Anxiety Disorder REASON FOR FOLLOW-UP: Individual therapy Session #: 7 SESSION FOCUS: Relationships SESSION SUMMARY/NOTES: Kelli presented for the appointment on time with a bright affect and depressed mood. She reported staying at home over summer break and feeling tension and anxiety due to attitudes in the house. Shenoted having a meaningful interaction with her mother which increased her confidence. Kelli stated her brother is also transexual and they were able to connect while both were at home.She mentioned her appetite has been variable but she is starting to eat more regularly. Kelli indicated she is having negative thoughts concerning her body image and has engaged in self-harming behaviors. We discussed Kelli's values and how she would use those values to determine if a relationship is getting her closer to her goals. Kelli has a return appointment in three weeks and is aware how to reach me should she need a sooner appointment. PROGRESS TOWARDS GOALS: Kelli is taking time to evaluate relationships. Objective Measures: Ty-7 Question 12/11/2023 1:41 PM EDT - Filed by SUSSY Hugo Over the last 2 weeks, how often [...] every day Becoming easily annoyed or irritable Not at all Feeling afraid as if something awful might happen Several days Total score of all questions (range: 0 - 21) 10 (Moderate) Phq9-Depression Question 12/11/2023 1:44 PM EDT - Filed by SUSSY Hugo Over the last two weeks, how often have you been bothered by any of the following problems? Little interest or pleasure in doing things Several days Feeling down, depressed or hopeless Several days Over the last two weeks, how often have you been bothered by any of the following problems? Trouble falling or staying asleep, or sleeping too much Several days Feeling tired or having little energy Not at all Poor appetite or overeating More than half [...] moving around a lot more than usual Several days Thoughts that you would be better off , or of hurting yourself Several days Question 1 score (range: 0 - 3) 1 Question 2 score (range: 0 - 3) 1 Question 3 score (range: 0 - 3) 1 Question 4 score (range: 0 - 3) 0 Question 5 score (range: 0 - 3) 2 Question 6 score (range: 0 - 3) 2 Question 7 score (range: 0 - 3) 3 Question 8 score (range: 0 - 3) 1 Question 9 score (range: 0 - 3) 1 Sum of all PHQ9 questions. (range: 0 - 27) 12 (Moderate Depression) Myc Visit Accident Related Question Question 12/11/2023 1:44 PM EDT - Filed by SUSSY Hugo Is this visit related to an accident? (i.e work, motor vehicle) No G-Dhcj-Hnlpzruk/Soccqu-Vxbh-Rozqab Question 12/11/2023 1:44 PM EDT - Filed by SUSSY Hugo In the past month, have you wished you were or wished you could go to sleep and not wake up? Yes In the past month, have you actually had any thoughts about killing yourself? No In your lifetime, have you ever done anything, started to do anything, or prepared to do anything to end your life? Yes If YES, did you do any of these things in the past 3 months? No If YES, what did you do? Outpatient Adult Therapy Treatment Plan Treatment plan [...] Treatment Frequency of Treatment Yes, sent via [employer] 8-11 sessions approximately every 2-4 weeks Patient [...] BEHAVIORAL OBSERVATIONS: Appearance: within normal limits Behavior: restless Speech: normal pitch, normal rate, and normal volume Mood: depressed Affect: mood-congruent Thought Process: within normal limits Thought Content: Delusions: No Hallucinations: No Obsessions: No Homicidal: No Suicidal: No Sensorium: alert and oriented to person, place, time and situation Cognition: grossly intact Insight: good Judgment: good Suicide/Homicidal Assessment Validated Screening and Assessment Measures White Suicide Severity Rating Scale Results 11/23/2023 09:19 [place] SUICIDE SEVERITY RATING SCALE (C-SSRS) Have [...] 3 months? No Level of Risk Moderate Protective Factors Access to appropriate services;Help-Seeking Behaviors;Cares about job/school;Willing to participate in less restrictive means of help;Future Plans Risk Factors History of Depression;History of Trauma;History of self- harm;Anxiety;Family history ofsuicide attempts/completion ADMINISTER [place]UM[place]IA SUICIDE SCREENING IN ROOMING TOOL. Risk and Protective Factors must be completed for any positive screen (pt answers yes to any items on the CSSRS) Crisis Plan: see Crisis Plan in Treatment Plan Use Psych General Crisis Plan when White is No Risk or Low Risk Use Edin-Brown Suicide Safety Plan when White is Moderate or High Risk, or whenever clinical judgment would indicate need for full crisis plan to be done. FOLLOW-UP PLAN: Return: 3 weeks Action Plan: 1. Continue Individual Therapy 2. Continue medication management with ananya. Reminder to complete Treatment Plan Update in "Plan" section of Plan Navigator Treatment plan reviewed with the patient. Patient voices understanding and concurs with plan. SUSSY Mcdermott Division of Psychiatry & Behavioral Medicine [facility] [phone] documented in this encounter Plan of Treatment Upcoming Encounters Date Type Department Care Team (Late st Contact Info) Description 12/28/2023 1:00 PM EDT Telemedicine Psychiatry, [facility] [address] [facility] [address] Yanely Gracia CRNP [address] [place] [phone] 01/01/2024 10:00 AM EDT Telemedicine Psychology, [facility] [address] [place] [address] Argentina Souza LSW [address] [facility] [place] [address] 04/08/2024 4:00 PM EST Office Visit [facility] [address] [place] [address] Analy Renteria MD [address] [place] [address] Health Maintenance Due Date Last Done Comments [...] Ratio 05/26/2024 024, 01/31/2023, 09/02/2021 Depression Monitoring 12/10/2024 12/11/2023 , 11/20/2023, 11/01/2023, Additional history exists Hepatitis C Screening Completed 05/26/2023 , 05/26/2023, 05/26/2023, Additional history exists Gonorrhea / Chlamydia Screen Discontinued 09/01/2023, 05/26/2023, 01/21/2021 HIV Screening Completed 09/01/2023, 05/15, 01/31/2023 HPV (Gardasil) Vaccine Aged Out No lo [...] moderate documented in this encounter Care Teams Linecasting Machine Keyboard Operator Relationship Specialty Start Date End Date Analy Renteria MD [address] [place] [id number] PCP - General Internal Medicine 03/09/23 documented as of this encounter
--- OUTSIDE RECORDS SUMMARY | 2024-03-12 05:52 | External Medical Summary | Summary of Care ---
Author Name Unknown Organization [facility] Address [address] [place] [address] Phone [phone] Care Team Providers Care Dental Technician Instructor Name Role Phone Analy Renteria MD Primary Care Provider Reason for Visit * Reason Comments Follow Up * - Authorized Specialty Diagnoses / Procedures Referred By Agatha dickson Referred To Contact Referral ID Status Reason Start Date Expiration Date V isits Requested Visits Authorized [id number] Authorized 06/15/2023 06/13/2024 [id number] Encounter Details Date Type Department Care Team (Latest Contact Info) Description 12/28/2023 1:00 PM EDT Telemedicine Psychiatry, [facility] [address] [place] [address] Yanely Gracia CRNP [address] [place] [id number] Major depressive disorder, recurrent severe without psychotic features (HCC)*; PTSD (post-traumatic stress disorder); ADHD (attention deficit hyperactivity disorder), combined type Allergies Active Allergy Reactions Criticality Noted Date Comments Banana 11/13/2019 Other reaction(s): Itching [place] Pollen Allergy Skin Test Cough 05/06/2021 Other reaction(s): Itching, Swelling Food (See Comments) 09/02/2021 Plums Kiwi Extract 11/27/2019 Other reaction(s): Itching, Swelling Mushroom Extract Complex Cough 05/06/2021 Other reaction(s): Itching Shellfish-Derived Products Edema face/lips/tongue High 06/01/2021 Scallops only documented as of this encounter (statuses as of 12/28/2023) Medications Medication Sig Dispensed Refills Start Date End Date Status Spironolactone 50 MG Oral Tablet (Aldactone)Indicat ions:Gender dysphoria in adult Take 1 Tablet by mouth in the morning and 1 Tablet before bedtime. 180 Tablet 1 4 Active Additional Information Patient not taking.Reported on 11/22/2023 Estradiol Valerate 20 MG/ML Intramuscular Oil (Delestrogen)Indic ations:Gender dysphoria in adult Inject 0.2 mL under the skin once a week. 5 mL 1 4 Active Syringe/Needle (Disp) 25G X 5/8" 1 MLIndications:Gend er dysphoria in adult Use to inject estradiol. 15 Each 4 Active Needle (Disp) 18G X 1"Indications:Gend er dysphoria in adult Use to draw up estradiol for injection. 15 Each 4 4 Active buPROPion HCl ER (XL) 150 MG Oral Tablet Extended Release 24 Hour (Wellbutrin XL) Take 1 Tablet by mouth in the morning. 30 Tablet 4 4 Active medroxyPROGESTERon e Acetate 10 MG Oral Tablet (Provera)Indicatio ns:Gender dysphoria in adult Take 1 Tablet by mouth in the morning. 90 Tablet 1 4 Active metFORMIN HCl 500 MG Oral Tablet (Glucophage)Indica tions:Type 2 diabetes mellitus with hemoglobin A1c goal of less than 7.0% (HCC) Take 1 tab by mouth with breakfast and 2 tabs by mouth with dinner. 270 Tablet 1 4 Active Prazosin HCl 1 MG Oral Capsule (Minipress)Indicat ions:PTSD (post-traumatic stress disorder) Take 1 Capsule by mouth at bedtime. 90 Capsule 1 4 Active Amphetamine-Dextro amphetamine 5 MG Oral Tablet (Adderall)Indicati ons:Attention deficit disorder, unspecified hyperactivity presence Take 1 Tablet by mouth every evening. 30 Tablet 4 Active Adderall XR 10 MG Oral Capsule Extended Release 24 HourIndications:At tention deficit disorder, unspecified hyperactivity presence Take 1 Capsule by mouth in the morning. 30 Capsule 4 Active busPIRone HCl 15 MG Oral Tablet (Buspar) Take one tablet by mouth in the morning and one tablet by mouth at bedtime 60 Tablet 4 4 Active busPIRone HCl 10 MG Oral Tablet (Buspar)Indication s:Anxiety Take 1 Tablet by mouth in the morning and 1 Tablet before bedtime. 180 Tablet 1 4 12/28/19 24 Discontinued documented as of this encounter (statuses as of 12/28/2023) Active Problems Problem Noted Date Diagnosed Date 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 03/09/2023 PTSD (post-traumatic stress disorder) 01/31/2023 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 Family history of connective tissue disease 07/13 Autism spectrum disorder 06/02/2022 Diabetes mellitus without complication 2 Anxiety Depression ADD (attention deficit disorder) documented as of this encounter (statuses as of 12/28/2023) Resolved Problems Problem Noted Date Diagnosed Date Resolved Date Food insecurity 09/20/2021 06/29/2022 Overview: Per [facility] Protocol Obesity, Class I, BMI 30.0-3 4.9 (see actual BMI) 01/21/2021 03/09/2023 documented as of this encounter (statuses as of 12/28/2023) Immunizations Name Administration Dates Next Due COVID-19 [...] Recorded PHQ Adult Total Score 12 12/11/2023 [facility] - [facility]ational Stress Questionnaire Answer Date Recorded [...] as of this encounter Progress Notes * Yanely Gracia CRNP - 12/28/2023 1:04 PM EDT Adult Outpatient Psychiatry Routine Return Clinic Visit Patient location: HOME. I was not in a hospital or clinic location. After connecting through televideo, patient was verified with two unique identifiers. Patient (or authorized legal wireless sales representative) was then informed that this was a Telemedicine visit and being conducted confidentially over secure lines. Methods to assure confidentiality were taken. Patient acknowledged consent and understanding of privacy and security of the Telemedicine visit. The patient agreed to participate. Risk Assessment: [place] Suicide Severity Rating Scale Results 12/28/2023 13:12 [...] Risk Factors History of Depression;Anxiety;History of self-harm History of Present Illness: The patient Kelli Lara, is a 28 year old year with a past medical history of diabetes and joint pain and a past psychiatric history of ASD, ADHD, PTSD, depression, anxiety, and gender dysphoria, presenting for routine psychiatry follow up. Since her last clinic visit, wellbutrin XL 150 mg daily was started. She has been taking it for thelast month. She reports she has noticed some increased anxiety, but she is managing it well. She states "I feel like my mood is a bit better, I am more interested in doing things, " she also notices improvement in executive function, as well as other benefits. When asking about frequency of passive thoughts of not wanting to be alive anymore, she says "not more than usual," she does describe these as chronic, but states "I think they are better." She denies any plan or intention to harm herself in any way. She denies side effects to the wellbutrin, she does report some weight loss in the last month. She reports a decreased appetite. She reports she is being intentional about eating three meals a day and choosing nutrient dense foods. She agrees to monitor for further weight loss and follow with her PCP. She is currently taking 150 mg of wellbutrin XL, adderall XR 10 mg daily and 5 mg in the afternoon,buspirone 10 mg twice a day, and prazosin 1 mg for nightmares. She is asking about increasing buspar to 15 mg BID for increased anxiety, and this is reasonable. She is tolerating this medication regimen well and denies unwanted side effects. There is no SI/HI, no acute safety concerns reported. There are no reported symptoms of hypomania, moreno, or psychosis. Will proceed with plan as detailed below. Patient's last PHQ-9 score (Adult) - 16 and Patient's last CELINA-7 score - Total:10 See detailed psychiatric review of symptoms and psychiatric history below. Past Psychiatric History: Outpatient Treatment: Started receiving mental health treatment at age 19, has had intermittent psychiatry and therapy for the last 7 years Inpatient Treatment: None Passive wish: reports passive thoughts of not wanting to be alive anymore occurring 3-4 timesa week Suicidal thoughts: reports suicidal thoughts occurring 3-4 times a year Self injury and suicide attempts: History of self harm, via burning herself with hot water in the shower, history of head banging, history of scratching her harm with a thumbtack, also cut her arm with razor blades, reports intentionally skipping meals as an intentional form of self harm, has not cut herself in a month or more. Kelli denies history of suicide attempts Prior psychotropic medical trials: Lexapro: took for 3-4 years, helped with depression , describes that it ""numbed everything" and had other unwanted side effects, stopped taking 1-2 years ago History of trauma, abuse, exploitation or trafficking: trauma history Substance Abuse History: Caffeine: one cup of coffee a week, or less, denies regular use Nicotine and tobacco: denies Supplements: denies Alcohol: one or two drinks every one to two weeks Cannabis: once a month Benzodiazepines: Denies Opiates (Heroin/Fentanyl/Kratom/Prescription): Denies Stimulants (Cocaine/Crack/Prescription): prescribed Adderall XR 10 mg daily Amphetamines: Denies Hallucinogens (PCP/LSD/Psilocybin/Ecstasy): Denies Other substances (Dextromethorphan/Barbiturates/Benzodiazepines): Denies Substance use treatment for any of the above: Denies Family Psychiatric History: Psychiatric diagnoses: Brother - depression and anxiety, father - depression and anxiety grandfather - history of depression, seasonal depression Attempted suicides/ by suicide: little brother - suicide attempt Drug and alcohol abuse: Denies Personal, Family and Social History: Living situation: Living in [facility], living with ex-fiance, moving back in with her parents in 11 days Education/Employment: High school graduate, has completed some college courses, 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 Leisure and recreational interest: Writing, writing poetry, playing video games, walking Anglican/Spiritual Orientation: None, denies Access to weapons: denies Medical History: I have reviewed the patient's allergies, past medical/surgical history, and current medications. Patient Active Problem List Diagnosis Anxiety Depression ADD (attention deficit disorder) Diabetes mellitus without complication (HCC) Autism spectrum disorder Family history of connective tissue disease PTSD (post-traumatic stress disorder) Gender dysphoria in adult 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 History of diabetes, hypermobility of joints and joint pain Psychiatric history of PTSD, ADHD, depression, anxiety, and DID Cardiac History: No Head Injury: No Seizures: No No significant family cardiac history Recent labs/imaging: Relevant labs reviewed Mental Status Evaluation: Appearance: Well groomed, casually dressed, appearing stated age Abnormal Movement: No abnormal movements noted Behavior: Calm, cooperative and appropriate Speech and Language: Normal in rate, rhythm, volume and tone Mood: "A bit better." Affect: Brighter today, some what constricted at times Thought Process: Logical, linear and goal directed Thought Content: No abnormal thought content Hallucinations: No perceptual disturbances Suicidality: Reports a history of passive suicidal ideation, and passive wish thoughts, occurring a few times a week. No suicidal ideations, intent, method or plan Homicidality: No homicidal ideations, intent, plan or target Orientation: Oriented to self, time, place and circumstances Attention: Intact Recent and Remote memory:Intact Insight: Fair Judgement: Fair Assessment/Formulation: Patient is a 28 year old female with a past medical history of type 2 diabetes and a past psychiatric history of PTSD, MDD, CELINA, ADHD, gender dysphoria, and ASD presenting to [facility] with psychiatry services. She is employed and is a student and plans to move in with her parents next week although she does not identify them as a big source of support. Patient presents as depressed, with passive thoughts of not wanting to be alive and suicidal thoughts occurring a few times a week. She denies suicidal plan or intention. There is no history of suicide attempt. There is no history of past psychiatric hospitalizations. There are no substance use concerns. The patient also reports an unofficial diagnosis of DID and BPD. She is engaged in regular psychotherapy. There are no acute safety concerns. Diagnosis: ICD-10-CM 1. Major depressive disorder, recurrent severe without psychotic features (HCC) F33.2 2. PTSD (post-traumatic stress disorder) F43.10 3. ADHD (attention deficit hyperactivity disorder), combined type F90.2 Plan: Medications: Medications by Pharm Class (Includes Only ADHD/Anti-Narcolepsy/Anti-Obesity/Anorexiants, Antidepressants, Antianxiety Agents, Antipsychotics/Antimanic Agents, Anticonvulsant, Hypnotics/Sedatives/Sleep Disorder Agents, Beta Blockers, Antihypertensive) Medication Sig busPIRone HCl 15 MG Oral Tablet (Buspar) Take one tablet by mouth in the morning and one tablet by mouth at bedtime Adderall XR 10 MG Oral Capsule Extended Release 24 Hour Take 1 Capsule by mouth in the morning. Amphetamine-Dextroamphetamine 5 MG Oral Tablet (Adderall) Take 1 Tablet by mouth every evening. Prazosin HCl 1 MG Oral Capsule (Minipress) Take 1 Capsule by mouth at bedtime. buPROPion HCl ER (XL) 150 MG Oral Tablet Extended Release 24 Hour (Wellbutrin XL) Take 1 Tablet by mouth in the morning. Continue Wellbutrin XL 150 mg daily for treatment of depression Increase buspirone to 15 mg PO BID for anxiety Continue adderall XR 10 mg daily and adderall IR 5mg every afternoon Continue prazosin hcl 1mg at bedtime Labs: None today Psychotherapy: Continue routine individual psychotherapy Follow Up: 02/[address] Rosas Patient Education: Medication Education: The risks and benefits of buproprion were discussed, including but not limited to the common possible side effects such dry mouth, nausea, insomnia, dizziness, dyspepsia, sinusitis, and tremor, as well the possible exacerbation of anxiety. The increased risk of seizures was explained, particularly the increased risk of seizures with drug and alcohol use, the contraindication in patient's with eati ng disorders, as well the black box warning on suicidality in adolescents and young adults. There are no contraindications to prescribing this medication today. In depth education was provided and the patient was given the opportunity to ask questions. Treatment options and alternatives were reviewed with the patient and they agree with the above plan. Information about current medications was provided to the patient including risks, benefits, indications, and side-effects. The patient is making an informed decision to follow the recommendations outlined in this note. Safety Planning: I reviewed with the patient that in case of a psychiatric emergency they should call 911 or go to the nearest emergency room. The patient was able to verbalize understanding of the steps necessary toobtain help between appointments if needed, including requesting a phone call, requesting an appointment sooner, reaching clinic after hours, or accessing emergency mental health and medical serviceseither at a local emergency department or by activating mobile crisis teams and EMS. The patient was also provided with psychiatry emergency telephone numbers including crisis numbers, the text suicide hotline, and the suicide hotline. [place] Safety Plan Reviewed and updated with patient today. Reviewed coping mechanisms. Reviewed sources of support. Reviewed use of professional agencies Reviewed use of crisis numbers Professional agency numbers and crisis numbers provided to patient. Patient has access to his or her [employer] portal/[employer] See attached documents and flowsheets Crisis Numbers by [facility]: [facility] - Crisis Services Treatment Plan: The treatment plan will be provided to the patient via [employer]. We explicitly discussed the treatment plan and patient verbally agreed to participate in the plan. Information about current meds reviewed/provided /offered. Provider reviewed risks/benefits/side effects and potential complications. Recommended to not change meds/dosage without medical advise. Treatment options and recommendations/interventions reviewed. Patient and/or caregiver verbalize understanding and agrees to plan with explanation of risks/benefits, aware of how to contact clinic with questions. documented in this encounter Plan of Treatment Upcoming Encounters Date Type Department Care Team (Late st Contact Info) Description 01/01/2024 10:00 AM EDT Telemedicine Psychology, [facility] [address] [facility] [place] [address] Argentina Souza LSW [address] [facility] [place] [id number] 02/28/2024 2:00 PM EDT Telemedicine Pychiatry, [facility] [address] [facility] [place] [phone] Clifton Rosas, [address] [place] [phone] 04/08/2024 4:00 PM EST Office Visit [facility] [address] [place] [address] Analy Renteria MD [address] [place] [id number] Health Maintenance Due Date Last Done Comments Pneumococcal Vaccine: Pediatrics (0 to 5 Years) and At-Risk Patients (6 to 64 Years) (1 of 2 - PCV) 2002 DTaP,Tdap,and Td Vaccines (1 - Tdap) 11/04/2015 Hepatitis B Vaccine (2 of 3 - 19+ 3-dose series) 09/30/2021 09/02/2021 COVID-19 Vaccine (4 - 2022- season) 2023 07/07/2021, 08/20/2020, 07/23/2020 Influenza Vaccine (FLU shot) (#1) 2024 01/31/2023, 06/02/2022, 02/01/2021, Additional history exists Diabetic Foot Exam 02/01/2024 01/31/2023, 09/02/2021 GFR 02/01/2024 01/31/2023, 03/0 06/2022, 07/14/2022, Additional history exists Diabetic Eye Exam 03/09/2024 03/09/2023, 09/02/2021 HbA1c 05/24/2024 11/22/2023, 05/15, 01/31/2023, Additional history exists Albumin/Creatinine Ratio 05/26/2024 024, 01/31/2023, 09/02/2021 Depression Monitoring 12/10/2024 12/11/2023 , 11/20/2023, 11/01/2023, Additional history exists Gonorrhea / Chlamydia Screen Discontinued 09/01/2023, 05/26/2023, 01/21/2021 HPV (Gardasil) Vaccine Aged Out No lo nger eligible based on patient's age to complete this topic MENINGOCOCCAL (MENACTRA/MENVEO) Aged Out No longer eligible based on patient's age to complete this topic documented as of this encounter Medical Devices Not on filedocumented as of this encounter Visit Diagnoses Diagnosis Major depressive disorder, recurrent severe without psychotic features (HCC)- Primary Major depressive disorder, recurrent episode, severe, without mention of psychotic behavior PTSD (post-traumatic stress disorder) Posttraumatic stress disorder ADHD (attention deficit hyperactivity disorder), combined type Attention deficit disorder with hyperactivity documented in this encounter Care Teams Dental Technician Instructor Relationship Specialty Start Date End Date Analy Renteria MD [address] [facility] [place] [id number] PCP - General Internal Medicine 03/09/23 documented as of this encounter
--- OUTSIDE RECORDS SUMMARY | 2024-03-12 05:52 | External Medical Summary | Summary of Care ---
Author Name Unknown Organization [facility] Address [address] [place] [address] Phone [phone] Care Team Providers Care Level Vial Grinder Name Role Phone Analy Renteria MD Primary Care Provider Reason for Visit * Reason Comments Follow Up * - Authorized Specialty Diagnoses / Procedures Referred By Agatha t Referred To Contact Referral ID Status Reason Start Date Expiration Date V isits Requested Visits Authorized [id number] Authorized 06/15/2023 06/13/2024 [id number] Encounter Details Date Type Department Care Team (Late st Contact Info) Description 12/11/2023 1:00 PM EDT Telemedicine Psychology, [address] [place] [address] Argentina Souza LSW [address] [place] [address] TY (generalized anxiety disorder)*; Major depressive disorder, recurrent episode, moderate (HCC) Allergies Active Allergy Reactions Criticality Noted Date Comments Banana 11/13/2019 Other reaction(s): Itching Black Spencer Pollen Allergy Skin Test Cough 05/06/2021 Other reaction(s): Itching, Swelling Food (See Comments) 09/02/2021 Plums Kiwi Extract 11/27/2019 Other reaction(s): Itching, Swelling Mushroom Extract Complex Cough 05/06/2021 Other reaction(s): Itching Shellfish-Derived Products Edema face/lips/tongue High 06/01/2021 Scallops only documented as of this encounter (statuses as of 12/19/2023) Medications Medication Sig Dispensed Refills Start Date [...] the morning. 30 Tablet 4 11/23/2023 Active busPIRone HCl 10 MG Oral Tablet (Buspar)Indication s:Anxiety Take 1 Tablet by mouth in the morning and 1 Tablet before bedtime. 180 Tablet 1 09/01/2023 4 Discontinue d(Refill) medroxyPROGESTERon e Acetate 10 MG Oral Tablet [...] 90 Capsule 1 09/01/2023 4 Discontinue d(Refill) Amphetamine-Dextro amphetamine 5 MG Oral Tablet (Adderall)Indicati ons:Attention deficit disorder, unspecified hyperactivity presence Take 1 Tablet by mouth every evening. 30 Tablet 10/19/2023 4 Discontinue d(Refill) Adderall XR 10 MG Oral Capsule Extended Release 24 HourIndications:At tention deficit disorder, unspecified hyperactivity presence Take 1 Capsule by mouth in the morning. 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 Family history of connective tissue disease 07/13 Autism spectrum disorder 06/02/2022 Diabetes mellitus without complication Anxiety Depression ADD (attention deficit disorder) documented as of this encounter (statuses as of 12/19/2023) Resolved Problems Problem Noted Date Diagnosed Date Resolved Date Food insecurity 09/20/2021 06/29/2022 Overview: Per [facility] Protocol Obesity, Class I, BMI 30.0-3 4.9 (see actual BMI) 01/21/2021 03/09/2023 documented as of this encounter (statuses as of 12/19/2023) Immunizations Name Administration Dates Next Due COVID-19 [...] Recorded PHQ Adult Total Score 12 12/11/2023 [facility] - Occupational Stress Questionnaire Answer Date Recorded [...] Progress Notes * Amelie Abarca LCSW - 12/19/2023 11:42 AM EDT I have discussed the patient's management with the medical trainee and agree with the note. Please refer to the documented findings and plan of care. This patient's visit today consisted of a service. I have reviewed the medical history, physical examination, diagnosis, and plan, as performed by the resident/fellow physician. Amelie Abarca LCSW * Argentina Souza LSW - 12/11/2023 1:04 PM EDT Patient location: HOME. I was not in a hospital or clinic location. After connecting through [employer], patient was verified with two unique identifiers. Patient (or authorized legal underwriting sales representative) was then informed that this [...] that I have reviewed their record in [facility] and presented the opportunity for them to ask any questions regarding the visit today. The patient agreed to participate. Provider reviewed elements of Outpatient Services Description including limits of confidentiality, how to contact the department, risks and benefits of treatment and consent for treatment. Start Time: 1:03 Stop Time: 1:55 Total direct xejj-dy-zjso time: 52 minutes Confirm patient's location (and address if different from the home address documented in [facility]) at the time of this appointment: ADULT THERAPY PROGRESS NOTE Psychology, [facility] [address] [facility] [address] 12/11/2023 1:05 PM TYPE OF VISIT: Individual DIAGNOSIS: Major Depressive Disorder, Generalized Anxiety Disorder REASON FOR FOLLOW-UP: Individual therapy Session #: 7 SESSION FOCUS: Relationships SESSION SUMMARY/NOTES: Kelli presented for the appointment on time with a bright affect and depressed mood. She reported staying at home over summer and feeling tension and anxiety due to [...] an accident? (i.e work, motor vehicle) No Y-Ozic-Nzgkahwg/Uywewq-Fkrt-Wfcjkm Question 12/11/2023 1:44 PM EDT - Filed [...] Treatment Frequency of Treatment Yes, sent via [employer] 8-11 sessions approximately every 2-4 weeks Patient [...] Suicide/Homicidal Assessment Validated Screening and Assessment Measures [place] Suicide Severity Rating Scale Results 11/23/2023 09:19 [...] Plan Use Psych General Crisis Plan when [place] is No Risk or Low Risk Use [facility] Suicide Safety Plan when [place] is Moderate or High Risk, or whenever clinical judgment would indicate need for full crisis plan to be done. FOLLOW-UP PLAN: Return: 3 weeks Action Plan: 1. Continue Individual Therapy 2. Continue medication management with [facility]. Reminder to complete Treatment Plan Update in "Plan" section of Plan Navigator Treatment plan reviewed with the patient. Patient voices understanding and concurs with plan. SUSSY Mcdermott Division of Psychiatry & Behavioral Medicine [facility] [phone] documented in this encounter Plan of Treatment Upcoming Encounters Date Type Department Care Team (Late st Contact Info) Description 12/28/2023 1:00 PM EDT Telemedicine Psychiatry, [facility] [address] [facility] [place], [place] [address] Yanely Gracia CRNP [address] [facility] [place] [phone] 01/01/2024 10:00 AM EDT Telemedicine Psychology, [facility] [address] [facility] [place] [address] Argentina Souza, GRADUATE ENGINEER [address] [place] [address] 04/08/2024 4:00 PM EST Office Visit Family Practice [facility] [address] [facility] [place] [address] Analy Renteria MD [address] [facility] [place] [address] Health Maintenance Due Date Last Done Comments [...] moderate documented in this encounter Care Teams Level Vial Grinder Relationship Specialty Start Date End Date Analy Renteria MD [address] [place] [address] PCP - General Internal Medicine 03/09/23 documented as of this encounter
--- OUTSIDE RECORDS SUMMARY | 2024-03-12 05:52 | External Medical Summary | Summary of Care ---
Author Name Unknown Organization [facility] Address [address] [place] [address] Phone [phone] Care Team Providers Care Rough Rib Grader Name Role Phone Analy Renteria MD Primary Care Provider Reason for Visit * Reason Comments Follow Up * - Authorized Specialty Diagnoses / Procedures Referred By Agatha t Referred To Contact Referral ID Status Reason Start Date Expiration Date V isits Requested Visits Authorized [id number] Authorized 06/15/2023 06/13/[phone] Encounter Details Date Type Department Care Team (Late st Contact Info) Description 01/01/2024 10:00 AM EDT Telemedicine Psychology, [address] [place] [address] Argentina Souza LSW [address] [place] [address] TY (generalized anxiety disorder)*; Major depressive disorder, recurrent episode, moderate (HCC) Allergies Active Allergy Reactions Criticality Noted Date Comments Banana 11/13/2019 Other reaction(s): Itching Black Ke[place] Pollen Allergy Skin Test Cough 05/06/2021 Other reaction(s): Itching, Swelling Food (See Comments) 09/02/2021 Plums Kiwi Extract 11/27/2019 Other reaction(s): Itching, Swelling Mushroom Extract Complex Cough 05/06/2021 Other reaction(s): Itching Shellfish-Derived Products Edema face/lips/tongue High 06/01/2021 Scallops only documented as of this encounter (statuses as of 01/02/2024) Medications Medication Sig Dispensed Refills Start Date [...] tabs by mouth with dinner. 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 Family history of connective tissue disease 07/13 Autism spectrum disorder 06/02/2022 Diabetes mellitus without complication Anxiety Depression ADD (attention deficit disorder) documented as of this encounter (statuses as of 01/02/2024) Resolved Problems Problem Noted Date Diagnosed Date Resolved Date Food insecurity 09/20/2021 06/29/2022 Overview: Per [facility] Protocol Obesity, Class I, BMI 30.0-3 4.9 (see actual BMI) 01/21/2021 03/09/2023 documented as of this encounter (statuses as of 01/02/2024) Immunizations Name Administration Dates Next Due COVID-19 [...] Recorded PHQ Adult Total Score 16 01/01/2024 [facility] - Occupational Stress Questionnaire Answer Date [...] Progress Notes * Argentina Souza, SUSSY - 01/01/2024 10:01 AM EDT Patient location: HOME. I was not in a hospital or clinic location. After connecting through [employer], patient was verified with two unique identifiers. Patient (or authorized legal correspondence representative) was then informed that this was [...] that I have reviewed their record in [facility] and presented the opportunity for them to ask any questions regarding the visit today. The patient agreed to participate. Provider reviewed elements of Outpatient Services Description including limits of confidentiality, how to contact the department, risks and benefits of treatment and consent for treatment. Start Time: 10:02 Stop Time: 10:56 Total direct xrkl-jd-lvqk time: 54 minutes Confirm patient's location (and address if different from the home address documented in [facility]) at the time of this appointment: ADULT THERAPY [place] [address] [place] [address] 01/01/2024 10:01 AM TYPE OF VISIT: Individual [...] an accident? (i.e work, motor vehicle) No I-Djlm-Iklrbnaj/Wyjwqy-Kopv-Ortfnv Question 01/01/2024 9:44 AM EDT - Filed [...] Treatment Frequency of Treatment Yes, sent via [employer] 8-11 sessions approximately every 2-4 weeks Patient [...] treatment Collaboration of Care: Yes, provider within [facility], information is shared automatically in medical record [...] Suicide/Homicidal Assessment Validated Screening and Assessment Measures [place] Suicide Severity Rating Scale Results 12/28/2023 13:12 [...] Plan Use Psych General Crisis Plan when [place] is No Risk or Low Risk Use [facility] Suicide Safety Plan when [place] is Moderate or High Risk, or whenever clinical judgment would indicate need for full crisis plan to be done. FOLLOW-UP PLAN: Return: 4 weeks Action Plan: 1. Continue Individual Therapy 2. Continue medication management with [facility]. Reminder to complete Treatment Plan Update in "Plan" section of Plan Navigator Treatment plan reviewed with the patient. Patient voices understanding and concurs with plan. SUSSY Mcdermott Division of Psychiatry & Behavioral Medicine [facility] [phone] documented in this encounter Plan of Treatment Upcoming Encounters Date Type Department Care Team (Late st Contact Info) Description 01/29/2024 3:30 PM EDT Telemedicine Psychology, [facility] [address] [place] [address] Argentina Souza, WORKERS' COMPENSATION HEARINGS OFFICER [address] [place] [address] 02/28/2024 2:00 PM EDT Telemedicine Pychiatry, [facility] [place] [address] [place] [phone] Clifton Rosas, DO [address] [place] [phone] 04/08/2024 4:00 PM EST Office Visit Family Practice [facility] [address] [place] [address] Analy Renteria MD [address] [place] [address] Health Maintenance Due Date Last Done Comments [...] moderate documented in this encounter Care Teams Rough Rib Grader Relationship Specialty Start Date End Date Analy Renteria MD [address] [place] [address] PCP - General Internal Medicine 03/09/23 documented as of this encounter
--- OUTSIDE RECORDS SUMMARY | 2024-03-12 05:52 | External Medical Summary | Summary of Care ---
Author Name Unknown Organization [facility] Address [address] [place] [address] Phone [phone] Care Team Providers Care Refiner Operator Name Role Phone Analy Renteria MD Primary Care Provider Reason for Visit * Reason Comments Outpatient Testing Encounter Details Date Type Department Care Team (Late st Contact Info) Description 11/15/2023 12:40 PM EDT [facility] [address] [place] [phone] [place], [facility] [address] [place] [address] Gender dysphoria in adult Allergies Active Allergy Reactions Criticality Noted Date Comments Banana 11/13/2019 Other reaction(s): Itching Black [place] Pollen Allergy Skin Test Cough 05/06/2021 Other [...] Recorded PHQ Adult Total Score 16 11/20/2023 [facility] Occupat ional Health - Occupational [...] as of this encounter Miscellaneous Notes * Result Encounter Note - Analy Renteria MD - 11/21/2023 9:51 AM EDT [facility] 12/23/23. documented in this encounter Plan of Treatment Upcoming Encounters Date Type Department Care Team (Late st Contact Info) Description 11/22/2023 10:00 AM EDT Office Visit Family Practice [facility] [address] [facility] [place] [address] Analy Renteria MD 132 [facility] [place] [address] 11/30/2023 9:00 AM EDT Telemedicine Psychiatry, [facility] [address] [place] [address] Yanely Gracia CRNP [address] [place] [phone] 12/11/2023 1:00 PM EDT Telemedicine Psychology, [facility] [address] [place] [address] Argentina Souza, SUSSY [address] [facility] [place] [address] Health Maintenance Due Date Last Done Comments Pneumococcal Vaccine: Pediatrics (0 to 5 Years) and At-Risk Patients (6 to 64 Years) (1 of 2 - PCV) 2002 DTaP,Tdap,and Td Vaccines (1 - Tdap) 11/04/2015 Hepatitis B Vaccine (2 of 3 - 19+ 3-dose series) 09/30/2021 09/02/2021 COVID-19 Vaccine ( season) 2023 07/07/2021, 08/20/2020, 07/23/2020 HbA1c 11/24/2023 [...] Procedure Name Priority Date/Time Associated Diagnosis Comments TESTOSTERONE, TOTAL Routine 11/15/2023 1 2:39 PM EDT Gender dysphoria in adult ESTRADIOL Routine 11/15/2023 12:39 PM EDT Gender dysphoria in adult documented in this encounter Results * (ABNORMAL) TESTOSTERONE, TOTAL (11/15/2023 12:39 PM EDT) Testosterone, Total 19.0(L) 249.0 - 836.0 ng/dL 11/15/2023 8:19 PM EDT [facility] Blood Venous blood specimen / Unknown Venipuncture / Unknown 11/15/2023 12:39 PM EDT 11/15/2023 12:39 PM EDT Narrative [facility] - 11/15/2023 8:19 PM EDT The above reference range is based on the legal sex of the patient only. Results should be interpreted together with patient's sex at , gender identity, and clinical context. Analy Renteria MD LAB BLOOD ORDE KD Performing Organization Address City/[facility] [[email or web address]] Co de Phone Number [facility] [address] [place] [address] * (ABNORMAL) ESTRADIOL (11/15/2023 12:39 PM EDT) [facility] Estradiol 212.0(H) 5.0 - 42.5 pg/mL 11/15/2023 7:45 PM EDT [facility] Comment:The above reference range is based on the legal sex of the patient only. Results should be interpreted together with patient's sex at , gender identity, and clinical context. Blood Venous blood specimen / Unknown Venipuncture / Unknown 11/15/2023 12:39 PM EDT 11/15/2023 12:39 PM EDT Analy Renteria MD LAB BLOOD PEPE YI Performing Organization Address [facility] [[email or web address]] Co de Phone Number [facility] [address] [place] [address] documented in this encounter Visit Diagnoses Diagnosis Gender dysphoria in adult documented in this encounter Care Teams Refiner Operator Relationship Specialty Start Date End Date Analy Renteria MD [address] [place] [address] PCP - General Internal Medicine 03/09/23 documented as of this encounter
--- OUTSIDE RECORDS SUMMARY | 2024-03-12 05:52 | External Medical Summary | Summary of Care ---
Author Name Unknown Organization [facility] Address [address] [place] [address] Phone [phone] Care Team Providers Care Computer Engineering Technologist Name Role Phone Analy Renteria MD Primary Care Provider Encounter Details Date Type Department Care Team (Late st Contact Info) Description 12/04/2023 Documentation Psychiatry, [place] [address] [place] [address] Yanely Gracia CRNP [address] [place] [address] Allergies Active Allergy Reactions Criticality Noted Date Comments Banana 11/13/2019 Other reaction(s): Itching Black [place] Pollen Allergy Skin Test Cough 05/06/2021 Other reaction(s): Itching, Swelling Food (See Comments) 09/02/2021 Plums Kiwi Extract 11/27/2019 Other reaction(s): Itching, Swelling Mushroom Extract Complex Cough 05/06/2021 Other reaction(s): Itching Shellfish-Derived Products Edema face/lips/tongue High 06/01/2021 Scallops only documented as of this encounter (statuses as of 12/04/2023) Medications Medication Sig Dispensed Refills Start Date [...] the morning. 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 Family history of connective tissue disease 07/13 Autism spectrum disorder 06/02/2022 Diabetes mellitus without complication Anxiety Depression ADD (attention deficit disorder) documented as of this encounter (statuses as of 12/04/2023) Resolved Problems Problem Noted Date Diagnosed Date Resolved Date Food insecurity 09/20/2021 06/29/2022 Overview: Per [facility] Protocol Obesity, Class I, BMI 30.0-3 4.9 (see actual BMI) 01/21/2021 03/09/2023 documented as of this encounter (statuses as of 12/04/2023) Immunizations Name Administration Dates Next Due COVID-19 [...] Recorded PHQ Adult Total Score 16 11/20/2023 [facility]at [facility] - Occupational [...] Progress Notes * Yanely Gracia CRNP - 12/04/2023 8:15 AM EDT PSYCHIATRY DISCHARGE/TRANSFER SUMMARY 1. Summary of Services provided: Medication Management 2. Outcomes and referrals: provider leaving, transferring care to new psychiatry provider 3. Relevant psychosocial status: stable 4. Medications upon discharge: buPROPion HCl ER (XL) 150 MG Oral Tablet Extended Release 24 Hour (Wellbutrin XL) Adderall XR 10 MG Oral Capsule Extended Release 24 Hour Amphetamine-Dextroamphetamine 5 MG Oral Tablet (Adderall) Estradiol Valerate 20 MG/ML Intramuscular Oil (Delestrogen) Needle (Disp) 18G X 1" Syringe/Needle (Disp) 25G X 5/8" 1 ML busPIRone HCl 10 MG Oral Tablet (Buspar) medroxyPROGESTERone Acetate 10 MG Oral Tablet (Provera) metFORMIN HCl 500 MG Oral Tablet (Glucophage) Prazosin HCl 1 MG Oral Capsule (Minipress) Spironolactone 50 MG Oral Tablet (Aldactone) 5. Diagnoses upon Discharge: Diagnoses Codes Comments Major depressive disorder, recurrent severe without psychotic features (HCC) - Primary F33.2 History of ADHD Z86.59 PTSD (post-traumatic stress disorder) F43.10 6. Medical History: Past Medical History: Diagnosis Date ADD (attention deficit disorder) Anxiety COVID-19 02/13/2020 COVID-19 07/16/2022 Depression 7. Additional Information: Psychotropic History Follow-up on 6-8 weeks with new psychiatry provider Plan of care at time of discharge including referrals: Use crisis plan as needed Can consult us in the future as clinically indicated Patient and/or family has access to this document through [employer] documented in this encounter Plan of Treatment Upcoming Encounters Date Type Department Care Team (Late st Contact Info) Description 12/11/2023 1:00 PM EDT Telemedicine Psychology, [facility] [address] [facility] [place], [place] [address] Argentina Souza, SUSSY [address] [place] [address] 12/28/2023 1:00 PM EDT Telemedicine Psychiatry, [facility] [address] [facility] [place] [address] Yanely Gracia CRNP [address] [facility] [place] [phone] 04/08/2024 4:00 PM EST Office [facility] [place] [address] Analy Renteria MD [address] [place] [address] Health Maintenance Due Date Last Done Comments [...] Exam 02/01/2024 01/31/2023, 09/02/2021 GFR 02/01/2024 01/31/2023, 0306/2022, 07/14/2022, Additional history exists Diabetic Eye Exam [...] filedocumented as of this encounter Care Teams Computer Engineering Technologist Relationship Specialty Start Date End Date Analy Renteria MD [address] [place] [address] PCP - General Internal Medicine 03/09/23 documented as of this encounter
--- OUTSIDE RECORDS SUMMARY | 2024-03-12 05:52 | External Medical Summary | Summary of Care ---
Author Name Unknown Organization [facility] Address [address] [place] [address] Phone [phone] Care Team Providers Care Taping Foreman Name Role Phone Analy Renteria MD Primary Care Provider Reason for Visit * Reason Onset Date Comments Medication Refill 12/11/2023 Encounter Details Date Type Department Care Team (Late st Contact Info) Description 12/11/2023 Refill Psychiatry, [facility] Orell[facility] [address] [place] [address] Yanely Gracia CRNP [address] [place] [address] Anxiety; Attention deficit disorder, unspecified hyperactivity presence Allergies Active Allergy Reactions Criticality Noted Date Comments Banana 11/13/2019 Other reaction(s): Itching Black [place] Pollen Allergy Skin Test Cough 05/06/2021 Other reaction(s): Itching, Swelling Food (See Comments) 09/02/2021 Plums Kiwi Extract 11/27/2019 Other reaction(s): Itching, Swelling Mushroom Extract Complex Cough 05/06/2021 Other reaction(s): Itching Shellfish-Derived Products Edema face/lips/tongue High 06/01/2021 Scallops only documented as of this encounter (statuses as of 12/14/2023) Medications Medication Sig Dispensed Refills Start Date [...] in the morning. 30 Tablet 11/23/2023 Active medroxyPROGESTERon e Acetate 10 MG [...] 90 Capsule 1 12/12/2023 Active busPIRone HCl 10 MG Oral Tablet (Buspar)Indication s:Anxiety Take 1 Tablet by mouth in the morning and 1 Tablet before bedtime. 180 Tablet 1 12/14/2023 Active Amphetamine-Dextro amphetamine 5 MG Oral Tablet (Adderall)Indicati ons:Attention deficit disorder, unspecified hyperactivity presence Take 1 Tablet by mouth every evening. 30 Tablet 12/14/2023 Active Adderall XR 10 MG Oral Capsule Extended Release 24 HourIndications:At tention deficit disorder, unspecified hyperactivity presence Take 1 Capsule by mouth in the morning. 30 Capsule 12/14/2023 Active busPIRone HCl 10 MG Oral Tablet (Buspar)Indication s:Anxiety Take 1 Tablet by mouth in the morning and 1 Tablet before bedtime. 180 Tablet 1 09/01/2023 4 Discontinue d(Refill) Amphetamine-Dextro amphetamine [...] as of this encounter (statuses as of 12/14/2023) Active Problems Problem Noted Date Diagnosed Date 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 03/09/2023 PTSD (post-traumatic stress disorder) 01/31/2023 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 Family history of connective tissue disease 07/13 Autism spectrum disorder 06/02/2022 Diabetes mellitus without complication 2 Anxiety Depression ADD (attention deficit disorder) documented as of this encounter (statuses as of 12/14/2023) Resolved Problems Problem Noted Date Diagnosed Date Resolved Date Food insecurity 09/20/2021 06/29/2022 Overview: Per [facility] Protocol Obesity, Class I, BMI 30.0-3 4.9 (see actual BMI) 01/21/2021 03/09/2023 documented as of this encounter (statuses as of 12/14/2023) Immunizations Name Administration Dates Next Due COVID-19 [...] Recorded PHQ Adult Total Score 12 12/11/2023 [facility] - Occupational Stress Questionnaire Answer Date [...] encounter Miscellaneous Notes * Telephone Encounter - Yanely Gracia CRNP - 12/14/2023 2:04 PM EDT Providing refills of Adderall and buspar. PDMP unable to be reviewed, not connecting via [employer] and not responding outside of the EHR, but there are no concerns about misuse at this time. * Telephone Encounter - Alistair Geller LPN - 12/13/2023 3:02 PM EDTRefused Prescriptions: Disp Refills buPROPion HCl ER (XL) 150 MG Oral Tablet E*30 Tab*4 Sig: Take 1 Tablet by mouth in the morning. Refused By: ALISTAIR SHAH Reason for Refusal: Refill Not Appropriate * Telephone Encounter - Alistair Geller LPN - 12/13/2023 3:02 PM EDT Active refills documented in this encounter Plan of Treatment Upcoming Encounters Date Type Department Care Team (Late st Contact Info) Description 12/28/2023 1:00 PM EDT Telemedicine Psychiatry, [address] [place] [id number] Yanely Gracia CRNP [address] [place] [phone] 01/01/2024 10:00 AM EDT Telemedicine Psychology, [address] [place] [address] Argentina Souza, SUSSY [facility] [place] [id number] 04/08/2024 4:00 PM EST Office Visit Family Practice [facility] [address] [place] [address] Analy Renteria MD [address] [place] [address] Health Maintenance Due Date Last Done Comments [...] as of this encounter Visit Diagnoses Diagnosis Anxiety Anxiety state, unspecified Attention deficit disorder, unspecified hyperactivity presence documented in this encounter Care Teams Taping Foreman Relationship Specialty Start Date End Date Analy Renteria MD [address] [facility] [place] [address] PCP - General Internal Medicine 03/09/23 documented as of this encounter
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
--- OUTSIDE RECORDS SUMMARY | 2024-03-12 05:52 | External Medical Summary | Summary of Care ---
Author Name Unknown Organization [facility] Address [address] [place] [address] Phone [phone] Care Team Providers Care Muck Hauler Name Role Phone Analy Renteria MD Primary Care Provider Reason for Visit * Reason Comments Outpatient Testing Encounter Details Date Type Department Care Team (Late st Contact Info) Description 11/22/2023 10:50 AM EDT Laboratory Laboratory, [facility] [address] [place] [address] [facility] [address] [place] [address] Diabetes mellitus without complication (HCC) Allergies Active Allergy Reactions Criticality Noted Date Comments Banana 11/13/2019 Other reaction(s): Itching Black [place] Pollen Allergy Skin Test Cough 05/06/2021 Other reaction(s): Itching, Swelling Food (See Comments) 09/02/2021 Plums Kiwi Extract 11/27/2019 Other reaction(s): Itching, Swelling Mushroom Extract Complex Cough 05/06/2021 Other reaction(s): Itching Shellfish-Derived Products Edema face/lips/tongue High 06/01/2021 Scallops only documented as of this encounter (statuses as of 11/22/2023) Medications Medication Sig Dispensed Refills Start Date [...] as of this encounter (statuses as of 11/22/2023) Active Problems Problem Noted Date Diagnosed Date 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 03/09/2023 PTSD (post-traumatic stress disorder) 01/31/2023 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 Family history of connective tissue disease 07/13 Autism spectrum disorder 06/02/2022 Diabetes mellitus without complication Anxiety Depression ADD (attention deficit disorder) documented as of this encounter (statuses as of 11/22/2023) Resolved Problems Problem Noted Date Diagnosed Date Resolved Date Food insecurity 09/20/2021 06/29/2022 Overview: Per [facility] Protocol Obesity, Class I, BMI 30.0-3 4.9 (see actual BMI) 01/21/2021 03/09/2023 documented as of this encounter (statuses as of 11/22/2023) Immunizations Name Administration Dates Next Due COVID-19 [...] Recorded PHQ Adult Total Score 16 11/20/2023 [facility] - Occupational Stress [...] Care Team (Late st Contact Info) Description 11/30/2023 9:00 AM EDT Telemedicine Psychiatry, [facility] [address] Yanely Gracia CRNP [address] [place] [phone] 12/11/2023 1:00 PM EDT Telemedicine Psychology, [facility] [address] [facility] [address] Argentina Souza, EXECUTIVE SALES ASSISTANT [address] [facility] [place] [address] 04/08/2024 4:00 PM EST Office Visit Family Practice [facility] [address] [place] [address] Analy Renteria MD [address] [place] [address] Pending Results Name Type Priority Associated Diagnoses Date /Time HEMOGLOBIN A1C Lab Routine Diabetes mellitus without complication (HCC) 11/22/2023 10:43 AM EDT Health Maintenance Due Date Last Done Comments Pneumococcal Vaccine: Pediatrics (0 to 5 Years) and At-Risk Patients (6 to 64 Years) (1 of 2 - PCV) 2002 DTaP,Tdap,and Td Vaccines (1 - Tdap) 11/04/2015 Hepatitis B Vaccine (2 of 3 - 19+ 3-dose series) 09/30/2021 09/02/2021 COVID-19 Vaccine (4 - 2022- season) 2023 07/07/2021, 08/20/2020, 07/23/2020 HbA1c 11/24/2023 [...] as of this encounter Visit Diagnoses Diagnosis Diabetes mellitus without complication (HCC) Type II or unspecified type diabetes mellitus without mention of complication, not stated as uncontrolled documented in this encounter Care Teams Muck Hauler Relationship Specialty Start Date End Date Analy Renteria MD [address] [place] [address] [place] [address] PCP - General Internal Medicine 03/09/23 documented as of this encounter
--- OUTSIDE RECORDS SUMMARY | 2024-03-12 05:52 | External Medical Summary | Summary of Care ---
Author Name Unknown Organization [facility] Address [address] [place] [address] Phone [phone] Care Team Providers Care Process Control Operator Name Role Phone Analy Renteria MD Primary Care Provider Reason for Visit * Reason Comments Follow Up * - Authorized Specialty Diagnoses / Procedures Referred By Agatha t Referred To Contact Referral ID Status Reason Start Date Expiration Date V isits Requested Visits Authorized [id number] Authorized 06/15/2023 06/13/[phone] Encounter Details Date Type Department Care Team (Late st Contact Info) Description 11/20/2023 1:00 PM EDT Telemedicine Psychology, [address] [place] [address] Argentina Souza LSW [address] [place] [address] TY (generalized anxiety disorder)*; Major depressive disorder, recurrent episode, moderate (HCC) Allergies Active Allergy Reactions Criticality Noted Date Comments Banana 11/13/2019 Other reaction(s): Itching Black Wheelwright Pollen Allergy Skin Test Cough 05/06/2021 Other reaction(s): Itching, Swelling Food (See Comments) 09/02/2021 Plums Kiwi Extract 11/27/2019 Other reaction(s): Itching, Swelling Mushroom Extract Complex Cough 05/06/2021 Other reaction(s): Itching Shellfish-Derived Products Edema face/lips/tongue High 06/01/2021 Scallops only documented as of this encounter (statuses as of 11/20/2023) Medications Medication Sig Dispensed Refills Start Date [...] as of this encounter (statuses as of 11/20/2023) Active Problems Problem Noted Date Diagnosed Date 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 03/09/2023 PTSD (post-traumatic stress disorder) 01/31/2023 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 Family history of connective tissue disease 07/13 Autism spectrum disorder 06/02/2022 Diabetes mellitus without complication Anxiety Depression ADD (attention deficit disorder) documented as of this encounter (statuses as of 11/20/2023) Resolved Problems Problem Noted Date Diagnosed Date Resolved Date Food insecurity 09/20/2021 06/29/2022 Overview: Per [facility] Protocol Obesity, Class I, BMI 30.0-3 4.9 (see actual BMI) 01/21/2021 03/09/2023 documented as of this encounter (statuses as of 11/20/2023) Immunizations Name Administration Dates Next Due COVID-19 [...] Date Recorded PHQ Adult Total Score 21 11/01/2023 [facility] - Occupational Stress [...] as of this encounter Progress Notes * Harley Argentina Baign, INTELLECTUAL PROPERTY MANAGER - 11/20/2023 1:04 PM EDT Patient location: HOME. I was not in a hospital or clinic location. After connecting through [employer], patient was verified with two unique identifiers. Patient (or authorized legal mechanical service representative) was then informed that this [...] that I have reviewed their record in [employer] and presented the opportunity for them to ask any questions regarding the visit today. The patient agreed to participate. Provider reviewed elements of Outpatient Services Description including limits of confidentiality, how to contact the department, risks and benefits of treatment and consent for treatment. Start Time: 1:02 Stop Time: 1:48 Total direct [id number] time: 46 minutes Confirm patient's location (and address if different from the home address documented in [employer]) at the time of this appointment: ADULT THERAPY [place] [address] [address] 11/20/2023 1:04 PM TYPE OF VISIT: Individual [...] an accident? (i.e work, motor vehicle) No [id number]/Pktiww-Wcgo-[id number] Question 11/20/2023 12:46 PM EDT - Filed [...] Treatment Frequency of Treatment Yes, sent via [employer] 8-11 sessions approximately every 2-4 weeks Patient [...] Suicide/Homicidal Assessment Validated Screening and Assessment Measures [place] Suicide Severity Rating Scale Results 11/01/2023 15:03 [...] Plan Use Psych General Crisis Plan when [place] is No Risk or Low Risk Use [facility] Suicide Safety Plan when [place] is Moderate or High Risk, or whenever clinical judgment would indicate need for full crisis plan to be done. FOLLOW-UP PLAN: Return: 3 weeks Action Plan: 1. Continue Individual Therapy 2. Continue medication management with [facility]. Reminder to complete Treatment Plan Update in "Plan" section of Plan Navigator Treatment plan reviewed with the patient. Patient voices understanding and concurs with plan. SUSSY Mcdermott Division of Psychiatry & Behavioral Medicine [facility] [phone] documented in this encounter Plan of Treatment Upcoming Encounters Date Type Department Care Team (Late st Contact Info) Description 11/22/2023 10:00 AM EDT Office Visit [facility] [address] [place] [address] Analy Renteria MD [address] [place] [address] 11/30/2023 9:00 AM EDT Telemedicine Psychiatry, [facility] [address] [address] Yanely Gracia CRNP [address] [address] 12/11/2023 1:00 PM EDT Telemedicine Psychology, [facility] [address] [address] Argentina Souza LSW [address] [facility] [place] [id number] Health Maintenance Due Date Last Done Comments [...] moderate documented in this encounter Care Teams Process Control Operator Relationship Specialty Start Date End Date Analy Renteria MD 132 [facility] [place] [address] PCP - General Internal Medicine 03/09/23 documented as of this encounter
--- OUTSIDE RECORDS SUMMARY | 2024-03-12 05:52 | External Medical Summary | Summary of Care ---
Author Name Unknown Organization [facility] Address [address] [place] [address] Phone [phone] Care Team Providers Care Corrections Sergeant Name Role Phone Analy Renteria MD Primary Care Provider Reason for Visit * Reason Comments Follow Up Patient presents in office today for a 3m follow-up visit. Encounter Details Date Type Department Care Team (Late st Contact Info) Description 11/22/2023 10:00 AM EDT Office Visit Family Practice [facility] [address] [place] [address] Analy Renteria MD [address] [facility] [place] [address] Diabetes mellitus without complication (HCC)*; Gender dysphoria in adult Allergies Active Allergy Reactions Criticality Noted Date Comments Banana 11/13/2019 Other reaction(s): Itching Black Friant Pollen Allergy Skin Test Cough 05/06/2021 Other [...] Recorded PHQ Adult Total Score 16 11/20/2023 [facility] - Occupational [...] Sign Reading Time Taken Comments Blood Pressure 126/84 11/22/2023 9:54 AM EDT Pulse 105 11/22/2023 9:54 AM EDT Temperature - - Respiratory Rate 18 11/22/2023 9:54 AM EDT Oxygen Saturation 98% 11/22/2023 9:54 AM EDT Inhaled Oxygen Concentration - - Weight 94.8 kg (209 lb) 11/22/2023 9:54 AM EDT Height 184 cm (6' 0.44") 11/22/2023 9:54 AM EDT Body Mass Index 28 11/22/2023 9:54 AM EDT documented in this encounter Patient Instructions * Patient Instructions* Analy Renteria MD - 11/22/2023 10:31 AM EDT If you are not sure about injection mechanics, check out [employer]'s Injection Guide. (Easy to find with [employer]) documented in this encounter Progress Notes * Analy Renteria MD - 11/22/2023 10:20 AM EDT Images from the original note were not included. History of Present Illness Kelli Lara is a 28 year old adult that presents for Follow Up (Patient presents in office today for a 3m follow-up visit.) CELINA/PTSD/Depression/Autism/DID/ADHD: Working with counselor, really likes her. Has psychiatry appt next week. Saw Genetics for possible EDS. Exome sequencing recommended,insurance denied. Gender: Changed to subcutaneous estradiol in September. 4 mg weekly. Has noticed more breast growth. Stopped spironolactone. Occasional mild dizziness in AM. Type 2 diabetes: Metformin 1500 daily. Better tolerated if spreads out dose. GI side effects are improving. Current medications and allergies reviewed. Past medical history and problem list reviewed. Physical Exam Vitals: 11/22/23 0954 Pulse: 105 Resp: 18 SpO2: 98% BP: 126/84 BMI: 28 BP Readings from Last 3 Encounters: 11/22/23 126/84 09/18/23 128/90 09/01/23 122/84 Wt Readings from Last 3 Encounters: 11/22/23 94.8 kg (209 lb) 10/10/23 94.4 kg (208 lb 1.6 oz) 09/18/23 94.5 kg (208 lb 6.4 oz) Physical Exam Vitals and nursing note reviewed. Constitutional: General: She is not in acute distress. Appearance: Normal appearance. She is not ill-appearing. HENT: Head: Normocephalic and atraumatic. Eyes: Pupils: Pupils are equal, round, and reactive to light. Neck: Thyroid: No thyroid mass, thyromegaly or thyroid tenderness. Cardiovascular: Rate and Rhythm: Normal rate and regular rhythm. Heart sounds: No murmur heard. Pulmonary: Effort: Pulmonary effort is normal. Breath sounds: Normal breath sounds. Musculoskeletal: Right lower leg: No edema. Left lower leg: No edema. Lymphadenopathy: Cervical: No cervical adenopathy. Skin: General: Skin is warm and dry. Neurological: Mental Status: She is alert. Psychiatric: Mood and Affect: Mood normal. Behavior: Behavior normal. I have reviewed the following results: Estradiol, testosterone, CMP, Lipid Panel, Hemoglobin A1C, TSH, CBC, and B12 Assessment and Plan Diabetes mellitus without complication (HCC) If A1c is quite low, we will decrease to metformin 1000 mg daily. Otherwise can continue current dose. - HEMOGLOBIN A1C; Future Gender dysphoria in adult Continue estradiol current dose. We can recheck levels again before next visit. Will be establishing care with Psychiatry for multiple diagnoses. Anticipate that they will take over prescribing of psychiatric medications, including ADHD medicines. Wrap-Up Follow Up: Return in about 4 months (around 03/24/2024) for Labs Today. | For: Labs Today Time: I spent a total of 20-29 minutes (exact time 21 mins) on the date of service in preparation, delivery, and documentation of the care provided to Kelli Lara excluding any time spent in the performance of separately billed services. documented in this encounter Nursing Notes * Latasha Velasco MED ASSIST - 11/22/2023 9:54 AM EDT The patient has been properly identified by confirmation of name and date of . Chief Complaint Patient presents with Follow Up Patient presents in office today for a 3m follow-up visit. documented in this encounter Plan of Treatment Upcoming Encounters Date Type Department Care Team (Late st Contact Info) Description 11/30/2023 9:00 AM EDT Telemedicine Psychiatry, [facility] [address] [facility] [place] [address] Yanely Gracia CRNP [address] [facility] [place] [address] 12/11/2023 1:00 PM EDT Telemedicine Psychology, [address] [place] [address] Argentina Souza, SUSSY [address] [facility] [place] [address] 04/08/2024 4:00 PM EST Office Visit Family [facility] [address] [facility] [place] [address] Analy Renteria MD 132 [facility] [place] [address] Pending Results Name Type Priority Associated Diagnoses Date /Time HEMOGLOBIN A1C Lab Routine Diabetes mellitus without complication (HCC) 11/22/2023 10:43 AM EDT Scheduled Orders Name Type Priority Associated Diagnoses Orde r Schedule HEMOGLOBIN A1C Lab Routine Diabetes mellitus without complication (HCC) Expected: 11/22/2023, Expires: 12/22/2024 TESTOSTERONE, TOTAL Lab Routine Gender dysphoria in adult Expected: 03/15/2024, Expires: 11/21/2024 ESTRADIOL Lab Routine Gender dysphoria in adult Expected: 03/15/2024, Expires: 11/21/2024 Health Maintenance Due Date Last Done Comments [...] Eye Exam 03/09/2024 03/09/2023, 09/02/2021 Albumin/Creatinine Ratio 05/26/20242 024, 01/31/2023, 09/02/2021 Depression Monitoring 11/19/2024 11/20/2023 [...] Visit Diagnoses Diagnosis Diabetes mellitus without complication (HCC)- Primary Type II or unspecified type diabetes mellitus without mention of complication, not stated as uncontrolled Gender dysphoria in adult documented in this encounter Care Teams Corrections Sergeant Relationship Specialty Start Date End Date Analy Renteria MD [address] [place] [address] PCP - General Internal Medicine 03/09/23 documented as of this encounter
--- OUTSIDE RECORDS SUMMARY | 2024-03-12 05:53 | External Medical Summary | Summary of Care ---
Author Name Unknown Organization [facility] Address [address] [place] [address] Phone [phone] Care Team Providers Care Motor Vehicle Parts Interpreter Name Role Phone Analy Renteria MD Primary Care Provider Reason for Visit * Reason Comments Follow Up * - Authorized Specialty Diagnoses / Procedures Referred By Agatha t Referred To Contact Referral ID Status Reason Start Date Expiration Date V isits Requested Visits Authorized [id number] Authorized 06/15/2023 06/13/[phone] Encounter Details Date Type Department Care Team (Late st Contact Info) Description 11/01/2023 3:00 PM EDT Telemedicine Psychology, [address] [place] [address] Argentina Souza LSW [address] [place] [address] TY (generalized anxiety disorder)*; MDD (major depressive disorder), recurrent episode, moderate (HCC) Allergies Active Allergy Reactions Criticality Noted Date Comments Banana 11/13/2019 Other reaction(s): Itching Black [place] Pollen Allergy Skin Test Cough 05/06/2021 Other reaction(s): Itching, Swelling Food (See Comments) 09/02/2021 Plums Kiwi Extract 11/27/2019 Other reaction(s): Itching, Swelling Mushroom Extract Complex Cough 05/06/2021 Other reaction(s): Itching Shellfish-Derived Products Edema face/lips/tongue High 06/01/2021 Scallops only documented as of this encounter (statuses as of 11/01/2023) Medications Medication Sig Dispensed Refills Start Date [...] as of this encounter (statuses as of 11/01/2023) Active Problems Problem Noted Date Diagnosed Date 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 03/09/2023 PTSD (post-traumatic stress disorder) 01/31/2023 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 Family history of connective tissue disease 07/13 Autism spectrum disorder 06/02/2022 Diabetes mellitus without complication Anxiety Depression ADD (attention deficit disorder) documented as of this encounter (statuses as of 11/01/2023) Resolved Problems Problem Noted Date Diagnosed Date Resolved Date Food insecurity 09/20/2021 06/29/2022 Overview: Per [facility] Protocol Obesity, Class I, BMI 30.0-3 4.9 (see actual BMI) 01/21/2021 03/09/2023 documented as of this encounter (statuses as of 11/01/2023) Immunizations Name Administration Dates Next Due COVID-19 [...] Answer Date Recorded PHQ Adult Total Score 15 10/18/2023 [facility] [...] as of this encounter Progress Notes * HarleyArgentina, BRAIDED RUG MAKER - 11/01/2023 3:04 PM EDT Patient location: HOME. I was not in a hospital or clinic location. After connecting through [employer], patient was verified with two unique identifiers. Patient (or authorized legal warehouse representative) was then informed that this was [...] that I have reviewed their record in [employer] and presented the opportunity for them to ask any questions regarding the visit today. The patient agreed to participate. Provider reviewed elements of Outpatient Services Description including limits of confidentiality, how to contact the department, risks and benefits of treatment and consent for treatment. Start Time: 3:02 Stop Time: 3:58 Total direct [id number]-rp-kdan time: 56 minutes Confirm patient's location (and address if different from the home address documented in [facility]) at the time of this appointment: ADULT THERAPY [place] [address] 11/01/2023 3:04 PM TYPE OF VISIT: Individual DIAGNOSIS: Generalized Anxiety Disorder Major Depressive Disorder REASON FOR FOLLOW-UP: Individual therapy Session #: 5 SESSION FOCUS: Relationship stressors SESSION SUMMARY/NOTES: Kelli presented on time for the appointment with a flat affect and depressed mood. She reported feeling more down concerning her birthday and anxious about the plans. Kelli expressed historically her birthday created anxiety and brought to her attention the lack of close relationships in her life. Kelli is afraid she will be disappointed in her birthday and worries about repaying people if they choose to give her gifts. Kelli processed and discussed one of her close friendships and the mixed signals she is receiving from the friend. Kelli was encouraged to process how she values friendships. Kelli has a return appointment scheduled in three weeks and is aware how to reach me should she need a sooner appointment. PROGRESS TOWARDS GOALS: Kelli is recognizing Objective Measures: Ty-7 Question 11/01/2023 2:30 PM EDT - Filed by Patient Over the last 2 weeks, how often have you been bothered by the following problems? Feeling nervous, anxious, or on edge More than half the days Not being able to stop or control worrying Several days Worrying too much about different things Several days Trouble relaxing Several days Being so restless that is hard to sit still Several days Becoming easily annoyed or irritable Several days Feeling afraid as if something awful might happen Several days Total score of all questions (range: 0 - 21) 8 (Mild) Phq9-Depression Question 11/01/2023 2:30 PM EDT - Filed by Patient Over the last two weeks, how often have you been bothered by any of the following problems? Little interest or pleasure in doing things Nearly everyday Feeling down, depressed or hopeless Nearly everyday Over the last two weeks, how often have you been bothered by any of the following problems? Trouble falling or staying asleep, or sleeping too much Nearly everyday Feeling tired or having little energy More [...] Question 1 score (range: 0 - 3) 3 Question 2 score (range: 0 - 3) 3 Question 3 score (range: 0 - 3) 3 Question 4 score (range: 0 - 3) [...] Depression) Myc Visit Accident Related Question Question 11/01/2023 2:31 PM EDT - Filed by Patient Is this visit related to an accident? (i.e work, motor vehicle) No H-Swlp-Pbjmhzhm/Qqpofw-Ndrk-Fxuxsi Question 11/01/2023 2:31 PM EDT - Filed by Patient In [...] No If YES, what did you do? INTERVENTION: Cognitive Behavioral Therapy (CBT) PATIENT EDUCATION: [...] Suicide/Homicidal Assessment Validated Screening and Assessment Measures [place] Suicide Severity Rating Scale Results 11/01/2023 15:03 [...] Plan Use Psych General Crisis Plan when [place] is No Risk or Low Risk Use [facility] Suicide Safety Plan when [place] is Moderate or High Risk, or whenever [...] Treatment Frequency of Treatment Yes, sent via [employer] 8-11 sessions approximately every 2-4 weeks Patient Identified Needs/Goals Interventions Objective/ Discharge Criteria Problem/Need 1: Anxiety, Depression, PTSD, and Emotional Regulation Cognitive Behavioral Therapy (CBT), which includes psychoeducation, cognitive restructuring, relaxation/diaphragmatic breathing, problem-solving, and behavioral activation PHQ<5, TY<5, and Achieve optimal treatment response on optimally safe medication regimen FOLLOW-UP PLAN: Return: 3 weeks Action Plan: 1. Continue Individual Therapy 2. Continue medication management with [facility]. Reminder to complete Treatment Plan Update in "Plan" section of Plan Navigator Treatment plan reviewed with the patient. Patient voices understanding and concurs with plan. SUSSY Mcdermott Division of Psychiatry & Behavioral Medicine [facility] [phone] documented in this encounter Plan of Treatment Upcoming Encounters Date Type Department Care Team (Late st Contact Info) Description 11/20/2023 1:00 PM EDT Telemedicine Psychology, [address] [place] [address] Argentina Souza LSW [address] [place] [address] 11/22/2023 10:00 AM EDT Office Visit Family Practice [facility] 132 [facility] [place] [address] Analy Renteria MD 132 [facility] [place] [address] 11/30/2023 9:00 AM EDT Telemedicine Psychiatry, [address] [place] [address] Yanely Gracia CRNP 200 [facility] [place] [phone] Health Maintenance Due Date Last Done Comments Pneumococcal Vaccine: Pediatrics (0 to 5 Years) and At-Risk Patients (6 to 64 Years) (1 of 2 - PCV) 2002 GARDASIL-HPV IMMUNIZATION SERIES (1 - 3-dose series) 11/04/2011 DTaP,Tdap,and Td Vaccines (1 - Tdap) 11/04/2015 Hepatitis B (2 of 3 - 19+ 3-dose series) 09/30/2021 09/02/2021 COVID-19 Vaccine (4 - 2022-24 season) 2023 07/07/2021, 08/20/2020, 07/23/2020 HbA1c 11/24/2023 05/26/2023, 01/13, 09/01/2021, Additional history exists Diabetic Foot Exam 02/01/2024 01/31/2023, 09/02/2021 GFR 02/01/2024 01/31/2023, 03/0 06/2022, 07/14/2022, Additional history exists Diabetic Eye Exam 03/09/2024 03/09/2023, 09/02/2021 Albumin/Creatinine Ratio 05/26/2024 024, 01/31/2023, 09/02/2021 Depression Monitoring 10/31/2024 11/01/2023 , 10/18/2023, 10/04/2023, Additional history exists Influenza Vaccine (FLU shot) Completed 01/31/2023, 06/02/2022, 02/01/2021, Additional history exists Gonorrhea / Chlamydia Screen Discontinued 09/01/2023, 05/26/2023, 01/21/2021 MENINGOCOCCAL (MENACTRA/MENVEO) Aged Out No longer eligible based on patient's age to complete this topic documented as of this encounter Medical Devices Not on filedocumented as of this encounter Visit Diagnoses Diagnosis TY (generalized anxiety disorder)- Primary Generalized anxiety disorder MDD (major depressive disorder), recurrent episode, moderate (HCC) Major depressive disorder, recurrent episode, moderate documented in this encounter Care Teams Motor Vehicle Parts Interpreter Relationship Specialty Start Date End Date Analy Renteria MD 132 [facility] [place] [address] PCP - General Internal Medicine 03/09/23 documented as of this encounter
--- OUTSIDE RECORDS SUMMARY | 2024-03-12 05:53 | External Medical Summary | Summary of Care ---
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 Name Role Phone Analy Renteria MD Primary Care Provider Reason for Visit * Reason Comments Outpatient Testing Encounter Details Date Type Department Care Team (Late st Contact Info) Description 11/15/2023 12:40 PM EDT Laboratory Laboratory [facility] [address] [place] [id number] [place], Lab Scenery [address] [place] [address] Gender dysphoria in adult Allergies Active Allergy Reactions Criticality Noted Date Comments Banana 11/13/2019 Other reaction(s): Itching [place] Pollen Allergy Skin Test Cough 05/06/2021 Other reaction(s): Itching, Swelling Food (See Comments) 09/02/2021 Plums Kiwi Extract 11/27/2019 Other reaction(s): Itching, Swelling Mushroom Extract Complex Cough 05/06/2021 Other reaction(s): Itching Shellfish-Derived Products Edema face/lips/tongue High 06/01/2021 Scallops only documented as of this encounter (statuses as of 11/15/2023) Medications Medication Sig Dispensed Refills Start Date [...] as of this encounter (statuses as of 11/15/2023) Active Problems Problem Noted Date Diagnosed Date 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 03/09/2023 PTSD (post-traumatic stress disorder) 01/31/2023 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 Family history of connective tissue disease 07/13 Autism spectrum disorder 06/02/2022 Diabetes mellitus without complication Anxiety Depression ADD (attention deficit disorder) documented as of this encounter (statuses as of 11/15/2023) Resolved Problems Problem Noted Date Diagnosed Date Resolved Date Food insecurity 09/20/2021 06/29/2022 Overview: Per [facility] Protocol Obesity, Class I, BMI 30.0-3 4.9 (see actual BMI) 01/21/2021 03/09/2023 documented as of this encounter (statuses as of 11/15/2023) Immunizations Name Administration Dates Next Due COVID-19 [...] Recorded PHQ Adult Total Score 21 11/01/2023 [facility] [place] [facility] - Occupational Stress [...] Description 11/20/2023 1:00 PM EDT Telemedicine Psychology, [address] [place] [address] [place] Souza, SUSSY [address] [facility] [place] [address] 11/22/2023 10:00 AM EDT Office Visit Family Practice [facility] [address] [facility] [place] [address] Analy Renteria MD [address] [facility] [place] [address] 11/30/2023 9:00 AM EDT Telemedicine Psychiatry, [facility] [address] [facility] [place] [address] Yanely Gracia CRNP [address] [facility] [place] [phone] Pending Results Name Type Priority Associated Diagnoses Date /Time ESTRADIOL Lab Routine Gender dysphoria in adult 11/15/2023 12:39 PM EDT TESTOSTERONE, TOTAL Lab Routine Gender dysphoria in adult 11/15/2023 12:39 PM EDT Health Maintenance Due Date Last Done [...] 11/01/2023 , 10/18/2023, 10/04/2023, Additional history exists Gonorrhea / Chlamydia Screen Discontinued 09/01/2023, 05/26/2023, 01/21/2021 HPV (Gardasil) Vaccine Aged Out No lo nger eligible based on patient's age to complete this topic MENINGOCOCCAL (MENACTRA/MENVEO) Aged Out No longer eligible based on patient's age to complete this topic documented as of this encounter Medical Devices Not on filedocumented as of this encounter Visit Diagnoses Diagnosis Gender dysphoria in adult documented in this encounter Care Teams Ore Crushing Dust Collector Relationship Specialty Start Date End Date Analy Renteria MD [address] [place] [address] [place] [id number] PCP - General Internal Medicine 03/09/23 documented as of this encounter
--- OUTSIDE RECORDS SUMMARY | 2024-03-12 05:53 | External Medical Summary | Summary of Care ---
Author Name Unknown Organization [facility] Address [address] [place] [address] Phone [phone] Care Team Providers Care Form Maker Plaster Name Role Phone Analy Renteria MD Primary Care Provider Reason for Visit * Reason Comments NEW PATIENT * Evaluate & Treat - Unlimited Visits (Within 30 days (routine)) - Closed Specialty Diagnoses / Procedures Referred By Contac t Referred To Contact Medical Genetics / Hematology Oncology Diagnoses Hypermobility arthralgia Javier Sheffield MD [address] [place] [address] Referral ID Status Reason Start Date Expiration Date V isits Requested Visits Authorized [id number] Closed Specialty Services Required 07/05/[phone] Encounter Details Date Type Department Care Team (Latest Contact Info) Description 10/10/2023 9:00 AM EDT Office Visit Medical Genetics [address], [address] [place] [address] Mono Mcgowan MD [address] [place] [address] Attention deficit disorder, unspecified hyperactivity presence*; Autism spectrum disorder; Diabetes mellitus without complication [...] as of this encounter (statuses as of 10/11/2023) Medications Medication Sig Dispensed Refills Start Date [...] taking differently:50 mg OralDaily(AM), Reported on 09/18/2023 Amphetamine-Dextroam phetamine 5 MG Oral Tablet (Adderall)Indication s:Attention deficit disorder, unspecified hyperactivity presence Take 1 Tablet by mouth every evening. 30 Tablet 09/01/2023 Active Adderall XR 10 MG Oral Capsule Extended Release 24 HourIndications:Atte ntion deficit disorder, unspecified hyperactivity presence Take 1 Capsule by mouth in the morning. 30 Capsule 09/01/2023 Active Estradiol Valerate 20 MG/ML Intramuscular Oil (Delestrogen)Indicat [...] for injection. 15 Each 4 09/18/2023 Active documented as of this encounter (statuses as of 10/11/2023) Active Problems Problem Noted Date Diagnosed Date 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 03/09/2023 PTSD (post-traumatic stress disorder) 01/31/2023 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 Family history of connective tissue disease 07/13 Autism spectrum disorder 06/02/2022 Diabetes mellitus without complication Anxiety Depression ADD (attention deficit disorder) documented as of this encounter (statuses as of 10/11/2023) Resolved Problems Problem Noted Date Diagnosed Date Resolved Date Food insecurity 09/20/2021 06/29/2022 Overview: Per [facility] Protocol Obesity, Class I, BMI 30.0-3 4.9 (see actual BMI) 01/21/2021 03/09/2023 documented as of this encounter (statuses as of 10/11/2023) Immunizations Name Administration Dates Next Due COVID-19 [...] Date Recorded PHQ Adult Total Score 16 [facility]20[facility] - Occupational Stress Questionnaire Answer Date Recorded [...] money to get more. Patient declined 07/2023 Education Answer Date Recorded What is the [...] Sign Reading Time Taken Comments Blood Pressure - - Pulse - - Temperature 36.4 C (97.5 F) 10/10/2023 9:04 AM ED T Respiratory Rate - - Oxygen Saturation - - Inhaled Oxygen Concentration - - Weight 94.4 kg (208 lb 1.6 oz) 10/10/2023 9:04 A M EDT Height 184 cm (6' 0.44") 10/10/2023 9:04 AM EDT Body Mass Index 27.88 10/10/2023 9:04 AM EDT documented in this encounter Patient Instructions * Patient Instructions* Kandis Douglas, MS - 10/10/2023 10:13 AM EDT Kelli was seen today by Dr. Mcgowan and Kandis Douglas,Genetic Counselor, in the Genetics department at [facility]. Kelli was referred for an evaluation due to her history of joint pain, hypermobility and FH EDS. After meeting you, we discussed the following things: Chromosomes are packets of genetic material located in every cell of our body. Most people have 23 pairs of chromosomes, for a total of 46 chromosomes. The first 22 pairs are labeled by number, and the 23rd pair are the sex chromosomes. Boys have one X and one Y chromosome and girls have two X chromosomes. We inherit one chromosome in each pair from our mother and one chromosome in each pair fromour father. Along each chromosome are thousands of genes, and there are approximately 20,000 genes total. Sincewe have two copies of each of our chromosomes, we also have two copies of every gene. Our genes arewritten in a letter code, and each gene tells the body how to carry out a specific job. Small extraor missing pieces of chromosomes, or misspellings in genes within the chromosomes, can cause changes in how the body grows and develops. We are recommending whole exome sequencing for Kelli. Our genome refers to all of our genetic material, including all of the genetic material that encodes a protein (exons) as well as the genetic material that get cut out when making a protein (introns). Our exome refers to just the exons, which makes up about 1-2% of the genome. Therefore, whole exome sequencing includes reading through just the exons to look for any spelling changes. The lab does prefer that both parents provide a sample for testing, when this is possible. If parental samples are included in the testing, the lab would report to us if either parent's samples do not match the patient (i.e. in the case of non-paternity). If the lab contacts us to inform us that a parental sample failed biological QC testing, it is our policy to first reach out to the patient's biological mother, provided she is involved. After a discussion with the patient's mother, the fatherwill be notified. Patient's 18 and over will be notified after their mother and father are notified. Possible test results include: Positive - A spelling change is detected that has been previously reported and known to be associated with a particular disorder. Negative (normal) - No harmful spelling changes are found in the exons. This does not rule out a genetic cause for 's concerns, because this testing is not perfect. It could be that there is a changein an intron that affects the function of a gene, or there could be a spelling change that is not detectable by this testing technology. Variant of Unclear Significance - A spelling change is found, but it is unclear whether it actuallyhas an effect. Variant in Candidate Gene - A spelling change is found in a gene that is not associated with a particular syndrome, but based on the function of the gene it is hypothesized that this could cause concerns. Secondary findings - a change in a gene that is not associated with Kelli's concerns, but may leadto other concerns for Kelli in the future (i.e. change in a gene that leads to increased risk for cancer). It is important to note that this testing is primarily analyzing Kelli's DNA; it is not complete exome sequencing for parents. The lab will generally only detect and report any variants for parents if they were first detected for Kelli, and this will be noted on Kelli's test report. Anyone who has access to the report would have access to this information. The exception to this is the secondary findings report, which is offered for our patient and parents if they want this information. The [employer] ([employer]) has recommended a subset of genes associated with medically actionable, inherited disorders have the option of being reported - these conditions are referred to as secondary findings. Secondary findings aredefined as known or expected pathogenic variants, identified by exome sequencing, in a gene that isnot associated with an individual's concerns but may lead to other concerns for them in the future. Secondary findings are medically actionable in some way which may include increased medical surveillance. Each individual participating in testing can independently opt in or opt out of receiving these results. There is legislation called KILO, which offers protection against health insurance and employment discrimination based on genetic test results for asymptomatic individuals. This protection does not extend to life or disability insurance. Consent for Secondary Findings? Patient Mother Father YES TBD TBD Billing: If you have a Medical Assistance (Medicaid) plan as a primary or secondary insurance, there should not be an out of pocket cost to you, as the lab would not balance bill. Sample Collection: If Kelli's Mother and Father are willing to provide a samples for this testing, they will need to call Kandis at [phone] by MondayOctober 12. We will then place orders for cheek swab kits to be sent to your home at the address on file. Please follow the instructions in the cheek swab kits. They do highly recommend that you fill out the Signature card that comes with each kit, for the specimen collection information and your household income and size. If this is filled out and sent along with samples, they will automatically checkif you qualify for financial assistance, and this will streamline the billing process. Please note that the lab provides both a FedEx and USPS label with the kits. Please make sure that you use the correct label, based on how you are planning to send the kits back. Results Timeline: Once the samples are received by the testing lab, we will have results in approximately 2 months and will call you to discuss the results. If you have any questions about the status of testing, please feel free to call our office at [phone]. Our recommendations for Kelli are: Genetic Testing: The testing that we would like to pursue for Kelli is [facility]. Imaging/Other Testing: None at this time. Referrals:None at this time. Return Visit: We will call you with your test results. Follow up will be based on your results. Additional Notes: Clinical exam was borderline for hEDS, but definitely at least on the hypermobility disorder spectrum If you have any questions regarding today's visit, please give our office a call at [phone]. documented in this encounter Progress Notes * Mono Mcgowan MD - 10/10/2023 9:12 AM EDT Images from the original note were not included. Genetic Consult Patient: Kelli Martin Marco Date: 10/10/2023 Time: 9:00 AM Reason for Referral: Suspected diagnosis of EDS Patient was referred to Genetics by Javier Sheffield MD (Ortho) Chief Complaint: Hypermobility arthralgia History of the chief complaint: Kelli is a 27 year old who presents for an initial genetic evaluation due to hypermobility. She states that her wrists, ankles, neck and back give her the most issueswith popping out of pace, cracking and causing pain. She has a sibling that was diagnosed with Solitario Danlos Syndrome Hypermobile Type and feels she has similar symptoms. History: - Mother was 24 year old, G 1, P 1 at time of patient's delivery. - Father's age at delivery was 24 years. - Exposures: Other: None - Illness during : None - Chronic conditions: None - Complications of : None History: - Gestational age: Full Term - Delivery type: vaginal - Place of delivery: [facility] - Duration of ROM: unknown - Fluid description: no concerns - Cord description: no concerns - Complications: None History: - Weight 7 lbs 9 oz / length average / Head Circumference normal - Age at discharge few days - Location of stay: Nursery - Problems: None Past Medical History Past Medical History: Diagnosis Date ADD (attention deficit disorder) Anxiety COVID-19 02/13/2020 COVID-19 07/16/2022 Depression Past Surgical History Past Surgical History: Procedure Laterality Date EXCISE LIP OR CHEEK FOLD 2007 Development: -Speech impediment when little- had speech therapy around age 4. Motor milestones on time. - Comments: OT in school- had handwriting and dexterity issues. Prior Testing and Imaging: *Please refer to [facility] for a complete listing of all testing and imaging results. EKG- 07/31/2023- Normal Echo- 09/19/2022- The examination is adequate to evaluate the referral indication. The left ventricular cavity size is normal. The LV wall thickness is normal. The left ventricular wall motion is normal. The qualitative LV ejection fraction is 60-64% (normal). There is no valvular disease The aortic root and proximal ascending aorta are normal sized. Prior Evaluations: Family Medicine/Internal Medicine 09/18/2023- Seen for prostate pain. Feels like starts in prostate, then radiates into urethra. A/P:Brief, mild, infrequent sx. Will get U/A and Uctx. If normal, watchful waiting. 09/01/2023- Follow up- review of Psych meds- bridging until establishes with Psychiatry (ADHD, Anxiety, PTSD). Overall is doing okay. Happy with current medication doses. Diabetes- metformin increaseto 3 tablets daily. Gender - happy with hormones. Does get some positional orthostasis, mild. Usually resolves in 10-15 seconds. Pee RUQ pain with laughing- probably muscular. 01/31/2023- 27 y/o transgender female with ADD, anxiety, obesity, DM seen today for routine physical. Has not sought routine healthcare in some time. Was previous seeing [facility] for gender dysphoria treatment. Out of estradiol for three weeks. Has visit with Dr. Renteria to establish treatment. Has PTSD and fluctuating moods. On buspar BID. Psychology 2023- Followed for CELINA and Depression. Cardiology 07/31/2023- Seen due to hypermobility. Family history of EDS in younger brother. Borderline Hypertension. Patient reports history of hypermobility. Younger brother was recently diagnosed with EDS. Genetic testing was ordered last year but not yet completed. Appt is scheduled for September for genetics and EDS clinic. Echo was done last year with normal LVEF, normal sized ascending aorta/aortic root. BPwell controlled today. Voices no acute concerns. If EDS screening is negative, no further cardiac testing warranted. Orthopedics 07/05/2022- Seen for polyarthralgia and hypermobility concerns. Hypermobile joints of wrist, hands ,shoulders, knees, neck, back and collar bone and ankles x 5 years. H/o Sibling who has Solitario Danossyndrome. Patient recently noticed joint pain; hip, back, neck Also joint popping. Beighton score 4(+ for elbows BL and 5th digit BL ). Autoimmune/inflammatory lab panel ordered. Genetics referral placed, cardiology referral placed per mandate from Genetics. Pending inflammatory panel may need rheumatology referral as well Nutrition 07/15/2021- Consult for DM2 management. Family History: Full pedigree completed and scanned into EMR. All information was collected by Kandis Douglas MS from [facility]. Review of Systems: Patient and Family General: Patient: Significant positives: Muscle tightness, GI-issues Family Member: Significant positives: Brother with EDS (clinically dx, no genetic testing). Pat cousin with [place]'s, pat aunt with hx leg cramping. PGF with DM2. MGM with hx breast cancer (dx 60). Skeletal: Patient: Significant positives: Hypermobility, joint dislocations, joint pain, hx tendonitis Family Member: Significant positives: Brother and father with hypermobility and joint pain. Father with tall stature (6'3"). Brother (AFAB) with tall stature (5'11"). Skin and hair: Patient: Significant positives: None Family Member: Significant positives: None Eyes and ears: Patient: Significant positives: Myopia Family Member: Significant positives: PGM with glaucoma (dx 60s)/ Heart, lungs and kidneys: Patient: Significant positives: None Family Member: Significant positives: PGF with heart issues- nos (dx 70s). PGU with LA (d. 50s). Blood: Patient: Significant positives: None Family Member: Significant positives: None Central Nervous System: Patient: Significant positives: Anxiety, depression, ADD, PTSD, DID, autism, hx IEP. By 6 yo was diagnosed with autism. Difficulties including communicating, completing assignments. Excelled in reading and test taking. Needed speech therapy. Also needed assistance with fine motor tasks. Family Member: Significant positives: Brother with Autism spectrum disorder. Father with headaches and suspected autism spectrum disorder. MGF with brain tumor (dx 40s/50s- s/p surgery). All other systems negative. Maternal ethnicity: Spanish, Belgian Paternal ethnicity: Spanish, [place] Consanguinity: denied Benji, Mennonite, Ashkenazi Hoahaoism ancestry: slight AJ ancestry on father's side Social History: Kelli lives with ex-fiance. There is a cat at home. No smoke exposure. REVIEW OF SYSTEMS: Eyes: near sighted and slight astigmatism Ears, nose, mouth, throat: missing two wisdom teeth. Cardio/vascular: No known heart conditions. Resp: No issues GI: +reflux. Overactive gag reflex. Prior eating disorder. Ongoing constipation. : no issues. Musculoskeletal: ankles, wrists, neck and back give most issues with hypermobility and pain Integumentary: +easy bruising, poor wound healing. Small cafe au lait on right elbow. Neuro: Intermittent lightheadedness. No seizure history. Psych: Follows with psych for Anxiety, Depression, PTSD, and Emotional Regulation Endo: Currently taking Estradiol Valerate 20 MG/ML Intramuscular Oil (Delestrogen) Heme/Lymph: No known issues Allergy/Immuno: No known issues. 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 Mcgowan. Edits, updates and additions, including HPI and ROS, were completed by Dr. Mcgowan. Physical Exam: Facies: normal Head shape: normal Hair: - Texture: normal - Distribution: normal - Hair Whorl: normal - Color: normal Forehead: normal Ears: - General: normal - Position: normal - Helices: normal - Antihelix: normal - Lobes: normal Eyes: - General: normal - Eyebrows: normal - PFs: normal - Eye slant: none - Sclerae: normal - Irides: normal - Fundus: normal red reflex Nose: normal Philtrum: normal Lips: normal Mouth: normal - Palate: normal - Gums: normal - Tongue: normal - Teeth: normal - Chin: normal with two small divets under Neck: normal Back / Spine: normal Arms: normal - Hands: normal - Fingers: blunted/squared off finger tips, angulation of third and 4th fingers, more significant on left hand. - Thumbs: normal - Fingernails: vertical ridging Joints: +hypermobility in fingers and elbows. Unable to place thumbs on forearms. +hypermobility inknees. Unable to place flat palms on floor with knees straight. Beighton 5/9 Legs: normal - Feet: normal Skin: - Pigmentation: normal - Texture: normal - Palmar creases: normal - Finger creases: normal Neurologic: - Motor strength: normal - Muscle mass: normal Abuse: My physical examination did not reveal any evidence of abuse. Impression: Kelli is a 27 year old female (assigned male at currently on estrogen) with hypermobility and childhood diagnoses of speech delay/impediment and autism. Given additional neurodevelopmental concerns beyond the hypermobility, I would like to determine if there is an underlying genetic etiology for these concerns, and therefore exome sequencing is recommended. Counseling: Kelli was seen today by Dr. Mcgowan and Kandis Douglas,Genetic Counselor, in the Genetics department at [facility]. Kelli was referred for an evaluation due to her history of joint pain, hypermobility and FH EDS. After meeting you, we discussed the following things: Chromosomes are packets of genetic material located in every cell of our body. Most people have 23 pairs of chromosomes, for a total of 46 chromosomes. The first 22 pairs are labeled by number, and the 23rd pair are the sex chromosomes. In most cases boys have one X and one Y chromosome and girls have two X chromosomes. We inherit one chromosome in each pair from our mother and one chromosome in each pair from our father. Along each chromosome are thousands of genes, and there are approximately 20,000 genes total. Sincewe have two copies of each of our chromosomes, we also have two copies of every gene. Our genes arewritten in a letter code, and each gene tells the body how to carry out a specific job. Small extraor missing pieces of chromosomes, or misspellings in genes within the chromosomes, can cause changes in how the body grows and develops. We are recommending whole exome sequencing for Kelli. Our genome refers to all of our genetic material, including all of the genetic material that encodes a protein (exons) as well as the genetic material that get cut out when making a protein (introns). Our exome refers to just the exons, which makes up about 1-2% of the genome. Therefore, whole exome sequencing includes reading through just the exons to look for any spelling changes. The lab does prefer that both parents provide a sample for testing, when this is possible. If parental samples are included in the testing, the lab would report to us if either parent's samples do not match the patient (i.e. in the case of non-paternity). If the lab contacts us to inform us that a parental sample failed biological QC testing, it is our policy to first reach out to the patient's biological mother, provided she is involved. After a discussion with the patient's mother, the fatherwill be notified. Patient's 18 and over will be notified after their mother and father are notified. Possible test results include: Positive - A spelling change is detected that has been previously reported and known to be associated with a particular disorder. Negative (normal) - No harmful spelling changes are found in the exons. This does not rule out a genetic cause for 's concerns, because this testing is not perfect. It could be that there is a changein an intron that affects the function of a gene, or there could be a spelling change that is not detectable by this testing technology. Variant of Unclear Significance - A spelling change is found, but it is unclear whether it actuallyhas an effect. Variant in Candidate Gene - A spelling change is found in a gene that is not associated with a particular syndrome, but based on the function of the gene it is hypothesized that this could cause concerns. Secondary findings - a change in a gene that is not associated with Kelli's concerns, but may leadto other concerns for Kelli in the future (i.e. change in a gene that leads to increased risk for cancer). It is important to note that this testing is primarily analyzing Kelli's DNA; it is not complete exome sequencing for parents. The lab will generally only detect and report any variants for parents if they were first detected for Kelli, and this will be noted on Kelli's test report. Anyone who has access to the report would have access to this information. The exception to this is the secondary findings report, which is offered for our patient and parents if they want this information. The [employer] ([employer]) has recommended a subset of genes associated with medically actionable, inherited disorders have the option of being reported - these conditions are referred to as secondary findings. Secondary findings aredefined as known or expected pathogenic variants, identified by exome sequencing, in a gene that isnot associated with an individual's concerns but may lead to other concerns for them in the future. Secondary findings are medically actionable in some way which may include increased medical surveillance. Each individual participating in testing can independently opt in or opt out of receiving these results. There is legislation called KILO, which offers protection against health insurance and employment discrimination based on genetic test results for asymptomatic individuals. This protection does not extend to life or disability insurance. Consent for Secondary Findings? Patient Mother Father YES TBD TBD Billing: If you have a Medical Assistance (Medicaid) plan as a primary or secondary insurance, there should not be an out of pocket cost to you, as the lab would not balance bill. Sample Collection: If Kelli's Mother and Father are willing to provide a samples for this testing, they will need to call Kandis at [phone] by MondayOctober 12. We will then place orders for cheek swab kits to be sent to your home at the address on file. Please follow the instructions in the cheek swab kits. They do highly recommend that you fill out the Signature card that comes with each kit, for the specimen collection information and your household income and size. If this is filled out and sent along with samples, they will automatically checkif you qualify for financial assistance, and this will streamline the billing process. Please note that the lab provides both a FedEx and USPS label with the kits. Please make sure that you use the correct label, based on how you are planning to send the kits back. Results Timeline: Once the samples are received by the testing lab, we will have results in approximately 2 months and will call you to discuss the results. If you have any questions about the status of testing, please feel free to call our office at [phone]. Our recommendations for Kelli are: Genetic Testing: The testing that we would like to pursue for Kelli is [facility]. Imaging/Other Testing: None at this time. Referrals:None at this time. Return Visit: We will call you with your test results. Follow up will be based on your results. Additional Notes: Clinical exam was borderline for hEDS, but definitely at least on the hypermobility disorder spectrum If you have any questions regarding today's visit, please give our office a call at [phone]. I spent 75 minutes reviewing medical record, talking with patient, performing an exam, discussing and consenting for genetic testing and documenting in the medical record. Mono Mcgowan MD documented in this encounter Plan of Treatment Upcoming Encounters Date Type Department Care Team (Late st Contact Info) Description 10/18/2023 2:00 PM EDT Telemedicine Psychology, [facility] [address] [facility] [place] [address] Argentina Souza LSW [address] [facility] [place] [address] 11/22/2023 10:00 AM EDT Office Visit Family [facility] [address] [place] [id number] Analy Renteria MD [address] [place] [address] 11/30/2023 9:00 AM EDT Telemedicine Psychiatry, [facility] [address] [facility] [place] [address] Yanely Gracia, TEST CARRIER [address] 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 10/10/2023 11:23 AM EDT Scheduled Orders Name Type Priority Associated Diagnoses Orde r Schedule EXOMENEXT TRIO,AMBRY Lab Routine Attention deficit disorder, unspecified hyperactivity presence Autism spectrum disorder Diabetes mellitus without complication (HCC) 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 Expected: 10/10/2023, Expires: 10/09/2024 Health Maintenance Due Date Last Done Comments Pneumococcal Vaccine: Pediatrics (0 to 5 Years) and At-Risk Patients (6 to 64 Years) (1 of 2 - PCV) 2002 GARDASIL-HPV IMMUNIZATION SERIES (1 - 3-dose series) 11/04/2011 DTaP,Tdap,and Td Vaccines (1 - Tdap) 11/04/2015 Hepatitis B (2 of 3 - 19+ 3-dose series) 09/30/2021 09/02/2021 COVID-19 Vaccine (4 - 2022-24 season) 2023 07/07/2021, 08/20/2020, 07/23/2020 Depression, Most Recent Score >= 10 (will fire each visit until score < 10) 10/05/2023 10/04/2023, 09/15/2023, 08/25/2023, Additional history exists HbA1c 11/24/2023 05/26/2023, 01/13, 09/01/2021, Additional history exists Diabetic Foot Exam 02/01/2024 01/31/2023, 09/02/2021 GFR 02/01/2024 01/31/2023, 03/0 06/2022, 07/14/2022, Additional history exists Diabetic Eye Exam 03/09/2024 03/09/2023, 09/02/2021 Albumin/Creatinine Ratio 05/26/2024 024, 01/31/2023, 09/02/2021 Influenza Vaccine (FLU shot) Completed 01/31/2023, 06/02/2022, 02/01/2021, Additional history exists Gonorrhea / Chlamydia Screen Discontinued 09/01/2023, 05/26/2023, 01/21/2021 MENINGOCOCCAL (MENACTRA/MENVEO) Aged Out No longer eligible based on patient's age to complete this topic documented as of this encounter Medical Devices Not on filedocumented as of this encounter Visit Diagnoses Diagnosis Attention deficit disorder, unspecified hyperactivity presence- Primary Autism spectrum disorder Autistic disorder, current or active state Diabetes mellitus without complication (HCC) Type II or unspecified type diabetes mellitus without mention of complication, not stated as uncontrolled Dissociative identity disorder (HCC) Dissociative identity disorder Generalized hypermobility of joints Other joint derangement, not elsewhere classified, multiple sites documented in this encounter Care Teams Form Maker Plaster Relationship Specialty Start Date End Date Analy Renteria MD [address] [place] [address] PCP - General Internal Medicine 03/09/23 documented as of this encounter
--- OUTSIDE RECORDS SUMMARY | 2024-03-12 05:53 | External Medical Summary | Summary of Care ---
Author Name Unknown Organization [facility] Address [address] [place] [address] Phone [phone] Care Team Providers Care Municipal [address] Magistrate Name Role Phone Analy Renteria MD Primary Care Provider Reason for Visit * Reason Comments Follow Up * - Authorized Specialty Diagnoses / Procedures Referred By Agatha t Referred To Contact Referral ID Status Reason Start Date Expiration Date V isits Requested Visits Authorized [id number] Authorized 06/15/2023 06/13/2024 [id number] Encounter Details Date Type Department Care Team (Late st Contact Info) Description 10/18/2023 2:00 PM EDT Telemedicine Psychology, [address] [place] [address] Argentina Souza, SUSSY [address] [place] [address] TY (generalized anxiety disorder)*; MDD (major depressive disorder), recurrent episode, moderate (HCC) Allergies Active Allergy Reactions Criticality Noted Date Comments Banana 11/13/2019 Other reaction(s): Itching [place] Pollen Allergy Skin Test Cough 05/06/2021 Other reaction(s): Itching, Swelling Food (See Comments) 09/02/2021 Plums Kiwi Extract 11/27/2019 Other reaction(s): Itching, Swelling Mushroom Extract Complex Cough 05/06/2021 Other reaction(s): Itching Shellfish-Derived Products Edema face/lips/tongue High 06/01/2021 Scallops only documented as of this encounter (statuses as of 10/19/2023) Medications Medication Sig Dispensed Refills Start Date End Date Status busPIRone HCl 10 MG Oral Tablet (Buspar)Indication s:Anxiety Take 1 Tablet by mouth in the morning and 1 Tablet before bedtime. 180 Tablet 1 09/01/2023 Active medroxyPROGESTERon e Acetate 10 MG Oral [...] 09/18/2023 Estradiol Valerate 20 MG/ML Intramuscular Oil (Delestrogen)Indic ations:Gender dysphoria in adult Inject 0.2 mL under the skin once a week. 5 mL 1 09/18/2023 Active Syringe/Needle (Disp) 25G X 5/8" 1 MLIndications:Gend er dysphoria in adult Use to inject estradiol. 15 Each 4 09/18/2023 Active Needle (Disp) 18G X 1"Indications:Gend er dysphoria in adult Use to draw up estradiol for injection. 15 Each 4 09/18/2023 Active Amphetamine-Dextro amphetamine 5 MG Oral Tablet (Adderall)Indicati ons:Attention deficit disorder, unspecified hyperactivity presence Take 1 Tablet by mouth every evening. 30 Tablet 09/01/2023 4 Discontinue d(Refill) Adderall XR 10 MG Oral Capsule Extended Release 24 HourIndications:At tention deficit disorder, unspecified hyperactivity presence Take 1 Capsule by mouth in the morning. 30 Capsule 09/01/2023 4 Discontinue d(Refill) documented as of this encounter (statuses as of 10/19/2023) Active Problems Problem Noted Date Diagnosed Date 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 03/09/2023 PTSD (post-traumatic stress disorder) 01/31/2023 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 Family history of connective tissue disease 07/13 Autism spectrum disorder 06/02/2022 Diabetes mellitus without complication Anxiety Depression ADD (attention deficit disorder) documented as of this encounter (statuses as of 10/19/2023) Resolved Problems Problem Noted Date Diagnosed Date Resolved Date Food insecurity 09/20/2021 06/29/2022 Overview: Per [facility] Protocol Obesity, Class I, BMI 30.0-3 4.9 (see actual BMI) 01/21/2021 03/09/2023 documented as of this encounter (statuses as of 10/19/2023) Immunizations Name Administration Dates Next Due COVID-19 [...] Recorded PHQ Adult Total Score 15 10/18/2023 [facility] - Occupational Stress Questionnaire Answer Date [...] Progress Notes * Argentina Souza, SUSSY - 10/18/2023 2:02 PM EDT Patient location: HOME. I was not in a hospital or clinic location. After connecting through [email or web address], patient was verified with two unique identifiers. Patient (or authorized legal human resources hr representative) was then informed that this was [...] that I have reviewed their record in [employer] and presented the opportunity for them to ask any questions regarding the visit today. The patient agreed to participate. Provider reviewed elements of Outpatient Services Description including limits of confidentiality, how to contact the department, risks and benefits of treatment and consent for treatment. Start Time: 2:01 Stop Time: 2:58 Total direct ytbw-ho-rpkw time: 57 minutes Confirm patient's location (and address if different from the home address documented in Epic) at the time of this appointment: ADULT THERAPY PROGRESS NOTE Rashi Dee [place] [address] 10/18/2023 2:02 PM TYPE OF VISIT: Individual DIAGNOSIS: Generalized Anxiety Disorder Major Depressive Disorder REASON FOR FOLLOW-UP: Individual therapy Session #: 4 SESSION FOCUS: relationships SESSION SUMMARY/NOTES: Kelli presented early for the appointment with a flat affect and depressed mood. Kelli reported feeling slightly better in mood and enjoying stable relationships. Supportive interventions were utilized as Kelli discussed and processed her expectations for relationships and how autism affects rela tionships. Lynn reviewed the effect of autism and ADHD in childhood and how her parents coped withthe diagnoses. Kelli explored the idea of not having a relationship for any significant amount of time in which she has felt safety or security. Kelli has a return appointment scheduled in two weeks and is aware how to reach me should she needa sooner appointment. PROGRESS TOWARDS GOALS: Progressing with boundaries Objective Measures: Ty-7 Question 10/18/2023 1:46 PM EDT - Filed by Patient Over the last 2 weeks, how often have you been bothered by the following problems? Feeling nervous, anxious, or on edge Several days Not being able to stop or control worrying Several days Worrying too much about different things Several days Trouble relaxing Several days Being so restless that is hard to sit still Nearly every day Becoming easily annoyed or irritable Several days Feeling afraid as if something awful might happen Several days Total score of all questions (range: 0 - 21) 9 (Mild) Phq9-Depression Question 10/18/2023 1:46 PM EDT - Filed by Patient Over [...] or staying asleep, or sleeping too much Not at all Feeling tired or having little energy More [...] Question 3 score (range: 0 - 3) 0 Question 4 score (range: 0 - 3) 2 Question 5 score (range: 0 - 3) 2 Question 6 score (range: 0 - 3) 2 Question 7 score (range: 0 - 3) 2 Question 8 score (range: 0 - 3) 2 Question 9 score (range: 0 - 3) 1 Sum of all PHQ9 questions. (range: 0 - 27) 15 (Moderately Severe Depression) Myc Visit Accident Related Question Question 10/18/2023 1:46 PM EDT - Filed by Patient Is this visit related to an accident? (i.e work, motor vehicle) No U-Hptg-Qudkqujz/Gjyfwh-Wazs-Bljugx Question 10/18/2023 1:47 PM EDT - Filed by Patient In the past month, have you wished you were or wished you could go to sleep and not wake up? Yes In the past month, have you actually had any thoughts about killing yourself? Yes In the past month, have you thought about how you might do this? No In the past month, have you had [...] Suicide/Homicidal Assessment Validated Screening and Assessment Measures [place] Suicide Severity Rating Scale Results 10/04/2023 15:58 [place] SUICIDE SEVERITY RATING SCALE (C-SSRS) Have [...] Plan: see Crisis Plan in Treatment Plan Edin Joe completed for passive SI thoughts Outpatient Adult Therapy Treatment Plan Treatment plan [...] Treatment Frequency of Treatment Yes, sent via [employer] Trunk 8-11 sessions approximately every 2-4 weeks Patient Identified Needs/Goals Interventions Objective/ Discharge Criteria Problem/Need 1: Anxiety, Depression, PTSD, and Emotional Regulation Cognitive Behavioral Therapy (CBT), which includes psychoeducation, cognitive restructuring, relaxation/diaphragmatic breathing, problem-solving, and behavioral activation PHQ<5, TY<5, and Achieve optimal treatment response on optimally safe medication regimen FOLLOW-UP PLAN: Return: 2 weeks Action Plan: 1. Continue Individual Therapy 2. Continue medication management with [facility]. Reminder to complete Treatment Plan Update in "Plan" section of Plan Navigator Treatment plan reviewed with the patient. Patient voices understanding and concurs with plan. SUSSY [facility] Division of Psychiatry & Behavioral Medicine [facility] [phone] documented in this encounter Plan of Treatment Upcoming Encounters Date Type Department Care Team (Late st Contact Info) Description 11/01/2023 3:00 PM EDT Telemedicine Psychology, [address] [place] [address] Argentina Souza LSW [address] [place] [address] 11/22/2023 10:00 AM EDT Office Visit [facility] [address] [facility] [place] [address] Analy Renteria MD [address] [place] [address] 11/30/2023 9:00 AM EDT Telemedicine Psychiatry, [facility] 200 [facility] [place], [place] [address] Yanely Gracia CRNP [address] [facility], [place] [address] Health Maintenance Due Date Last Done Comments [...] fire each visit until score < 10) 10/19/2023 10/18/2023, 10/04/2023, 09/15/2023, Additional history exists HbA1c 11/24/2023 05/26/2023, 01/13, [...] moderate documented in this encounter Care Teams Municipal Court Magistrate Relationship Specialty Start Date End Date Analy Renteria MD [address] [place] [address] PCP - General Internal Medicine 03/09/23 documented as of this encounter
--- OUTSIDE RECORDS SUMMARY | 2024-03-12 05:53 | External Medical Summary | Summary of Care ---
Author Name Unknown Organization [facility] Address [address] [place] [address] Phone [phone] Care Team Providers Care Paster Hat Lining Name Role Phone Analy Renteria MD Primary Care Provider Reason for Visit * Reason Comments Follow Up * - Authorized Specialty Diagnoses / Procedures Referred By Agatha t Referred To Contact Referral ID Status Reason Start Date Expiration Date V isits Requested Visits Authorized [id number] Authorized 06/15/2023 06/13/2024 [id number] Encounter Details Date Type Department Care Team (Late st Contact Info) Description 11/01/2023 3:00 PM EDT Telemedicine Psychology, [address] [place] [address] Argentina Souza LSW [address] [place] [address] TY (generalized anxiety disorder)*; MDD (major depressive disorder), recurrent episode, moderate (HCC) Allergies Active Allergy Reactions Criticality Noted Date Comments Banana 11/13/2019 Other reaction(s): Itching Black [place] Pollen Allergy Skin Test Cough 05/06/2021 Other reaction(s): Itching, Swelling Food (See Comments) 09/02/2021 Plums Kiwi Extract 11/27/2019 Other reaction(s): Itching, Swelling Mushroom Extract Complex Cough 05/06/2021 Other reaction(s): Itching Shellfish-Derived Products Edema face/lips/tongue High 06/01/2021 Scallops only documented as of this encounter (statuses as of 11/06/2023) Medications Medication Sig Dispensed Refills Start Date [...] as of this encounter (statuses as of 11/06/2023) Active Problems Problem Noted Date Diagnosed Date 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 03/09/2023 PTSD (post-traumatic stress disorder) 01/31/2023 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 Family history of connective tissue disease 07/13 Autism spectrum disorder 06/02/2022 Diabetes mellitus without complication Anxiety Depression ADD (attention deficit disorder) documented as of this encounter (statuses as of 11/06/2023) Resolved Problems Problem Noted Date Diagnosed Date Resolved Date Food insecurity 09/20/2021 06/29/2022 Overview: Per [facility] Protocol Obesity, Class I, BMI 30.0-3 4.9 (see actual BMI) 01/21/2021 03/09/2023 documented as of this encounter (statuses as of 11/06/2023) Immunizations Name Administration Dates Next Due COVID-19 [...] Recorded PHQ Adult Total Score 21 11/01/2023 [facility] - Occupational Stress [...] Progress Notes * Amelie Abarca LCSW - 11/06/2023 9:49 AM EDT I have discussed the patient's management with the medical trainee and agree with the note. Please refer to the documented findings and plan of care. This patient's visit today consisted of a service. I have reviewed the medical history, physical examination, diagnosis, and plan, as performed by the resident/fellow physician. Amelie Abarca LCSW * Argentina Souza LSW - 11/01/2023 3:04 PM EDT Patient location: HOME. I was not in a hospital or clinic location. After connecting through televideo, patient was verified with two unique identifiers. Patient (or authorized legal career services representative) was then informed that this [...] that I have reviewed their record in [email or web address] and presented the opportunity for them to ask any questions regarding the visit today. The patient agreed to participate. Provider reviewed elements of Outpatient Services Description including limits of confidentiality, how to contact the department, risks and benefits of treatment and consent for treatment. Start Time: 3:02 Stop Time: 3:58 Total direct caeg-jc-roym time: 56 minutes Confirm patient's location (and address if different from the home address documented in [facility]) at the time of this appointment: ADULT THERAPY PROGRESS NOTE Psychology, Rashi Orellana [place] [address] 11/01/2023 3:04 PM TYPE OF VISIT: Individual [...] an accident? (i.e work, motor vehicle) No Y-Ddlg-Khiqvddh/Plgwtz-Ixgf-Gkcgop Question 11/01/2023 2:31 PM EDT - Filed [...] Suicide/Homicidal Assessment Validated Screening and Assessment Measures [place] Suicide Severity Rating Scale Results 11/01/2023 15:03 [...] months? No Level of Risk Moderate ADMINISTER [place] SUICIDE SCREENING IN ROOMING TOOL. Risk and Protective Factors must be completed for any positive screen (pt answers yes to any items on the CSSRS) Crisis Plan: see Crisis Plan in Treatment Plan Use Psych General Crisis Plan when [place] is No Risk or Low Risk Use [facility] Suicide Safety Plan when [place] is Moderate or High Risk, or whenever [...] Treatment Frequency of Treatment Yes, sent via Gucash 8-11 sessions approximately every 2-4 weeks Patient [...] [facility] Division of Psychiatry & Behavioral Medicine [facility] [phone] documented in this encounter Plan of Treatment Upcoming Encounters Date Type Department Care Team (Late st Contact Info) Description 11/20/2023 1:00 PM EDT Telemedicine Psychology, [address] [place] [address] Argentina Souza LSW 21 [facility] [place] [address] 11/22/2023 10:00 AM EDT Office Visit Family Practice [facility] [address] [place] [address] Analy Renteria MD [address] [place] [address] 11/30/2023 9:00 AM EDT Telemedicine Psychiatry, [facility] 200 [facility] [place] [address] Yanely Gracia CRNP 200 [facility] [place] [address] Health Maintenance Due Date Last Done [...] / Chlamydia Screen Discontinued 09/01/2023, 05/26/2023, 01/21/2021 GARDASIL-HPV IMMUNIZATION SERIES Aged Out No longer eligible based on [...] moderate documented in this encounter Care Teams Paster Hat Lining Relationship Specialty Start Date End Date Analy Renteria MD [address] [place] [address] PCP - General Internal Medicine 03/09/23 documented as of this encounter
--- OUTSIDE RECORDS SUMMARY | 2024-03-12 05:53 | External Medical Summary | Summary of Care ---
Author Name Unknown Organization [facility] Address [address] [place] [address] Phone [phone] Care Team Providers Care Computer Programmer Chief Name Role Phone Analy Renteria MD Primary Care Provider Reason for Visit * Reason Onset Date Comments Medication Refill 10/17/2023 Encounter Details Date Type Department Care Team (Late st Contact Info) Description 10/17/2023 Refill Family Practice [facility] [address] [facility] [address] Analy Renteria MD [address] [facility] [place] [address] Anxiety; Gender dysphoria in adult; Type 2 diabetes mellitus with hemoglobin A1c goal of less than 7.0% ([facility]); PTSD (post-traumatic stress disorder); Attention deficit disorder, unspecified hyperactivity presence Allergies Active Allergy Reactions Criticality Noted Date Comments Banana 11/13/2019 Other reaction(s): Itching Black [place] Pollen Allergy Skin Test Cough 05/06/2021 Other [...] in the morning. 30 Capsule 10/19/2023 Active Amphetamine-Dextro amphetamine 5 MG Oral Tablet [...] Recorded PHQ Adult Total Score 15 10/18/2023 [facility] - Occupational Stress Questionnaire [...] encounter Miscellaneous Notes * Telephone Encounter - Analy Renteria MD - 10/19/2023 12:51 PM EDT Signed Prescriptions: Disp Refills Amphetamine-Dextroamphetamine 5 MG Oral Ta*30 Tab*0 Sig: Take 1Tablet by mouth every evening.Authorizing Provider: ANALY RENTERIA Adderall XR 10 MG Oral Capsule Extended Re*30 Cap*0 Sig: Take 1 Capsule by mouth in the morning.Authorizing Provider: ANALY RENTERIARefused Prescriptions: Disp Refills busPIRone HCl 10 MG Oral T ablet (Buspar) 180 Ta*1 Sig: Take 1 Tablet by mouth in the morning and 1 Tablet before bedtime.Refused By: BERNARDA AHUMADA LReason for Refusal: Too soon medroxyPROGESTERone Acetate 10 MG Oral Tab*90 Tab*1 Sig: Take 1 Tablet by mouth in the morning.Refused By: BERNARDA AHUMADA LReasheather for Refusal: Too soon metFORMIN HCl 500 MG Oral Tablet (Glucopha*270 Ta*1 Sig: Take 1 tab by mouth with breakfast and 2 tabs bymouth with dinner.Refused By: BERNARDA AHUMADAeasheather for Refusal: Too soon Prazosin HCl 1 MG Oral Capsule (Minipress) 90 Cap*1 Sig: Take 1 Capsule by mouth at bedtime.Refused By: BERNARDA AHUMADAfor Refusal: Too soon Estradiol Valerate 20 MG/ML Intramuscular *5 mL 1 Sig: Inject 0.2 mL under the skin once a week.Refused By: BERNARDA AHUMADAeason for Refusal: Too soon Syringe/Needle (Disp) 25GX 5/8" 1 ML 15 Each4 Sig: Use to inject estradiol.Refused By: BERNARDA AHUMADAeasheather for Refusal: Too soon Needle (Disp) 18G X 1" 15 Each4 Sig: Use to draw up estradiol for injection.Refused By: BERNARDA AHUMADA for Refusal: Too soon * Telephone Encounter - Analy Renteria MD - 10/19/2023 8:07 AM EDT I have reviewed the patient's controlled substance dispensing history in the Prescription Drug Monitoring Program in compliance with the [facility] regulations before prescribing a controlled substance. * Telephone Encounter - [facility] - 10/19/2023 7:16 AM EDTPending Prescriptions: Disp Refills Amphetamine-Dextroamphetamine 5 MG Oral Ta*30 Tab*0 Sig: Take 1 Tablet by mouth every evening. Adderall XR 10 MG Oral Capsule Extended Re*30 Cap*0 Sig: Take 1 Capsule by mouth in the morning. Refused Prescriptions: Disp Refills busPIRone HCl 10 MG Oral Tablet (Buspar) 180 Ta*1 Sig: Take 1 Tablet by mouth in the morning and 1 Tablet before bedtime. Refused By: BERNARDA AHUMADA Reason for Refusal: Too soon medroxyPROGESTERone Acetate 10 MG Oral Tab*90 Tab*1 Sig: Take 1 Tablet by mouth in the morning. Refused By: BERNARDA AHUMADA Reason for Refusal: Too soon metFORMIN HCl 500 MG Oral Tablet (Glucopha*270 Ta*1 Sig: Take 1 tab by mouth with breakfast and 2 tabs by mouth with dinner.< BR>Refused By: BERNARDA AHUMADA Reason for Refusal: Too soon Prazosin HCl 1 MG Oral Capsule (Minipress) 90 Cap*1 Sig: Take 1 Capsule by mouth at bedtime. Refused By: BERNARDA AHUMADA Reason for Refusal: Too soon Estradiol Valerate 20 MG/ML Intramuscular *5 mL 1 Sig: Inject 0.2 mL under the skin once a week. Refused By: BERNARDA AHUMADA Reason for Refusal: Too soon Syringe/Needle (Disp) 25G X 5/8" 1 ML 15 Each4 Sig: Use to inject estradiol. Refused By: BERNADRA AHUMADA Reason for Refusal: Too soon Needle (Disp) 18G X 1" 15 Each4 Sig: Use to draw up estradiol for injection. Refused By: BERNARDA AHUMADA Reason for Refusal: Too soon Electronically signed by [facility] at 10/19/2023 7:16 AM EDT * Telephone Encounter - [facility] - 10/19/2023 7:11 AM EDT I have reviewed the patients controlled substance dispensing history in the Prescription Drug Monitoring Program in compliance with the [facility] regulations before prescribing a controlled substance. PDMP checked on 10/19/2023. Pending Prescriptions: Disp Refills Amphetamine-Dextroamphetamine 5 MG Oral T*30 Tab*0 Sig: Take 1 Tablet by mouth every evening. Adderall XR 10 MG Oral Capsule Extended R*30 Cap*0 Sig: Take 1 Capsule by mouth in the morning. Last Visit: 09/18/2023 (in office), Visit date not found (telemedicine) Next Visit: 11/22/2023 Date medication was last filled: 09/10 (per adherence - cannot locate last fill in PDMP) Date medication is due for refill: 10/09 Pharmacy: [facility] Is this request for a controlled substance? Yes and Urine Drug Screen Not completed Toxicology results: No results found for this or any previous visit. Please approve if appropriate. Thank You, [facility] Clinical Pharmacist [facility] ([facility]) [phone] [id number] 10/19/2023, 7:13 AM Electronically signed by [facility] at 10/19/2023 7:16 AM EDT documented in this encounter Plan of Treatment Upcoming Encounters Date Type Department Care Team (Late st Contact Info) Description 11/01/2023 3:00 PM EDT Telemedicine Psychology, [address] [address] Argentina Souza, SUSSY [address] [facility] [place] [address] 11/22/2023 10:00 AM EDT Office Visit Family [facility] [address] [place] [address] Analy Renteria MD [address] [place] [address] 11/30/2023 9:00 AM EDT Telemedicine Psychiatry, Rashi Orellana [address] [facility] [place], [place] [address] Yanely Gracia CRNP [address] [facility] [place], [place] [address] Health Maintenance Due Date Last [...] Visit Diagnoses Diagnosis Anxiety Anxiety state, unspecified Gender dysphoria in adult Type 2 diabetes mellitus with hemoglobin A1c goal of less than 7.0% (HCC) PTSD (post-traumatic stress disorder) Posttraumatic stress disorder Attention deficit disorder, unspecified hyperactivity presence documented in this encounter Care Teams Computer Programmer Chief Relationship Specialty Start Date End Date Analy Renteria MD [address] [place] [address] PCP - General Internal Medicine 03/09/23 documented as of this encounter
--- OUTSIDE RECORDS SUMMARY | 2024-03-12 05:53 | External Medical Summary | Summary of Care ---
Author Name Unknown Organization [facility] Address [address] [place] [address] Phone [phone] Care Team Providers Care It Investment/Portfolio Manager Name Role Phone Analy Renteria MD Primary Care Provider Reason for Visit * Reason Comments NEW PATIENT * Evaluate & Treat - Unlimited Visits (Within 30 days (routine)) - Closed Specialty Diagnoses / Procedures Referred By Contac t Referred To Contact Medical Genetics / Hematology Oncology Diagnoses Hypermobility arthralgia Javier Sheffield MD [address] [place] [address] Referral ID Status Reason Start Date Expiration Date V isits Requested Visits Authorized [id number] Closed Specialty Services Required 07/05/2022 [id number] Encounter Details Date Type Department Care Team (Latest Contact Info) Description 10/10/2023 9:00 AM EDT Office Visit Medical Genetics [address], Juan Jose [address] [place] [address] Mono Mcgowan MD [address] [place] [address] Attention deficit disorder, unspecified hyperactivity presence*; Autism spectrum disorder; Diabetes mellitus without complication (HCC); Dissociative identity disorder (HCC); Generalized hypermobility of joints Allergies Active Allergy Reactions Criticality Noted Date Comments Banana 11/13/2019 Other reaction(s): Itching Black [place] Pollen Allergy Skin Test Cough 05/06/2021 Other reaction(s): Itching, Swelling Food (See Comments) 09/02/2021 Plums Kiwi Extract 11/27/2019 Other reaction(s): Itching, Swelling Mushroom Extract Complex Cough 05/06/2021 Other reaction(s): Itching Shellfish-Derived Products Edema face/lips/tongue High 06/01/2021 Scallops only documented as of this encounter (statuses as of 10/10/2023) Medications Medication Sig Dispensed Refills Start Date [...] as of this encounter (statuses as of 10/10/2023) Active Problems Problem Noted Date Diagnosed Date 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 03/09/2023 PTSD (post-traumatic stress disorder) 01/31/2023 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 Family history of connective tissue disease 07/13 Autism spectrum disorder 06/02/2022 Diabetes mellitus without complication Anxiety Depression ADD (attention deficit disorder) documented as of this encounter (statuses as of 10/10/2023) Resolved Problems Problem Noted Date Diagnosed Date Resolved Date Food insecurity 09/20/2021 06/29/2022 Overview: Per [facility] Protocol Obesity, Class I, BMI 30.0-3 4.9 (see actual BMI) 01/21/2021 03/09/2023 documented as of this encounter (statuses as of 10/10/2023) Immunizations Name Administration Dates Next Due COVID-19 [...] Recorded PHQ Adult Total Score 16 10/04/2023 [facility] - Occupational Stress Questionnaire Answer Date [...] encounter Patient Instructions * Patient Instructions* Kandis Douglsa, MS - 10/10/2023 10:13 AM EDT Kelli was seen today by Dr. Mcgowan and Kandis Douglas,Genetic Counselor, in the Genetics department at [facility]. Kelli was referred for an evaluation due [...] parents if they want this information. [employer] ([employer]) [...] they will need to call Kandis at [phone] by MondayOctober 12. We will then place [...] feel free to call our office at [phone]. Our recommendations for Kelli are: Genetic Testing: [...] please give our office a call at [phone]. documented in this encounter Progress Notes * [...] Delivery type: vaginal - [facility] of delivery: [facility] - Duration of ROM: unknown - Fluid [...] Prior Testing and Imaging: *Please refer to [facility] for a complete listing of all testing [...] healthcare in some time. Was previous seeing [facility] for gender dysphoria treatment. Out of estradiol [...] was collected by Kandis Douglas MS from [facility]. Review of Systems: Patient and Family General: Patient: Significant positives: Muscle tightness, GI-issues Family Member: Significant positives: Brother with EDS (clinically dx, no genetic testing). Pat cousin with [facility], pat aunt with hx leg cramping. PGF [...] heart issues- nos (dx 70s). PGU with MA (d. 50s). Blood: Patient: Significant positives: None [...] surgery). All other systems negative. Maternal ethnicity: Upper Sorbian, [place]ic Paternal ethnicity: [place], [place] Consanguinity: denied Benji, Mennonite, Ashkenazi Sikh ancestry: slight AJ ancestry on father's side [...] No known issues Allergy/Immuno: No known issues. MANAGER LIBRARY NOTE All information collected above was reviewed [...] Unable to place thumbs on forearms. +hypermobility in knees. Unable to place flat palms on floor [...] Douglas,Genetic Counselor, in the Genetics department at [facility]. Kelli was referred for an evaluation due [...] parents if they want this information. [employer] ([employer]) [...] they will need to call Kandis at [phone] by MondayOctober 12. We will then place [...] feel free to call our office at [phone]. Our recommendations for Kelli are: Genetic Testing: [...] please give our office a call at [phone]. I spent 75 minutes reviewing medical record, talking with patient, performing an exam, discussing and consenting for genetic testing and documenting in the medical record. Mono Mcgowan MD documented in this encounter Plan of Treatment Upcoming Encounters Date Type Department Care Team (Late st Contact Info) Description 10/18/2023 2:00 PM EDT Telemedicine Psychology, [facility] [address] [place] [address] Argentina Souza LSW 21 [facility] [place] [address] 11/22/2023 10:00 AM EDT Office Visit Family [facility] [address] [place] [address] Analy Renteria MD [address] [place] [address] 11/30/2023 9:00 AM EDT Telemedicine Psychiatry, [facility] [address] [facility] [place] [address] Yanely Gracia CRNP [address] [facility] [place] [address] Scheduled Orders Name Type Priority Associated Diagnoses [...] sites documented in this encounter Care Teams It Investment/Portfolio Manager Relationship Specialty Start Date End Date Analy Renteria MD [address] [place] [address] PCP - General Internal Medicine 03/09/23 documented as of this encounter
--- OUTSIDE RECORDS SUMMARY | 2024-03-12 05:53 | External Medical Summary ---
Author Name Unknown Address Unknown Organization K01:[facility] - [address] [place] [address] Laboratory Report Ordering Provider Test Date Status JORGEWHITLEY 11/15/2023 12:39:25 Final Observation Date Value Abnormality Reference (Units ) Status Estradiol 11/15/2023 12:39:25 212.0 Above high normal 5. 0-42.5 (pg/mL) Final The above reference range is based on the legal sex of the patient only. Results should be interpreted together with patient's sex at , gender identity, and clinical context. Performing Location [facility] - [address] [place] [address]
--- OUTSIDE RECORDS SUMMARY | 2024-03-12 05:53 | External Medical Summary ---
Author Name Unknown Address Unknown Organization K01:[facility] - [address] [place] [address] Laboratory Report Ordering Provider Test Date Status GUTIERREZ PATEL 11/15/2023 12:39:25 Final The above reference range is based on the legal sex of the patient only. Results should be interpreted together with patient's sex at , gender identity, and clinical context. Observation Date Value Abnormality Reference (Units ) Status Testosterone [Mass/volume] in Serum or Plasma 11/15/2023 12:39:25 19.0 Below low normal 249.0-836.0 (ng/dL) Final Performing Location [facility] - [address] [place] [address]
--- OUTSIDE RECORDS SUMMARY | 2024-03-12 05:53 | External Medical Summary | Summary of Care ---
Author Name Unknown Organization [facility] Address [address] [place] [address] Phone [phone] Care Team Providers Care Wheel Buffer Name Role Phone Analy Renteria MD Primary Care Provider Encounter Details Date Type Department Care Team (Late st Contact Info) Description 11/06/2023 Orders Only Outcomes Research Department [address] [place], [place] [id number] Caity Scott CHRA [employer] Other*[id number] Allergies Active Allergy Reactions Criticality Noted Date Comments Banana 11/13/2019 Other reaction(s): Itching Black [place] Pollen Allergy Skin Test Cough 05/06/2021 Other [...] Recorded PHQ Adult Total Score 21 11/01/2023 [facility] - Occupational [...] Description 11/20/2023 1:00 PM EDT Telemedicine Psychology, [address] [place] [address] Argentina Souza, LACE ROLLER [facility] [place] [address] 11/22/2023 10:00 AM EDT Office Visit Family Practice [facility] 132 [facility] [place] [address] Analy Renteria MD [address] [facility] [place] [address] 11/30/2023 9:00 AM EDT Telemedicine Psychiatry, [facility] [address] [facility] [place] [address] Yanely Gracia CRNP [address] [facility] [place] [phone] Scheduled Orders Name Type Priority Associated Diagnoses Orde r Schedule MYCODE SUBSEQUENT ADULT Lab Routine [employer] Other*[id number] Every 6 Months for 2 Occurrences starting 11/06/2023 until 11/25/2024 Health Maintenance Due Date Last Done Comments [...] as of this encounter Visit Diagnoses Diagnosis [employer] Other*[id number] documented in this encounter Care Teams Wheel Buffer Relationship Specialty Start Date End Date Analy Renteria MD [address] [place] [address] PCP - General Internal Medicine 03/09/23 documented as of this encounter
--- OUTSIDE RECORDS SUMMARY | 2024-03-12 05:53 | External Medical Summary | Summary of Care ---
Author Name Unknown Organization [facility] Address [address] [place] [address] Phone [phone] Care Team Providers Care Appraisal Technician Name Role Phone Analy Renteria MD Primary Care Provider Reason for Visit * Reason Comments Follow Up * - Authorized Specialty Diagnoses / Procedures Referred By Agatha t Referred To Contact Referral ID Status Reason Start Date Expiration Date V isits Requested Visits Authorized [id number] Authorized 06/15/2023 06/13/[phone] Encounter Details Date Type Department Care Team (Late st Contact Info) Description 10/18/2023 2:00 PM EDT Telemedicine Psychology, [address] [place] [address] Argentina Souza LSW [address] [place] [address] TY (generalized anxiety disorder)*; MDD (major depressive disorder), recurrent episode, moderate (HCC) Allergies Active Allergy Reactions Criticality Noted Date Comments Banana 11/13/2019 Other reaction(s): Itching Black [place] Pollen Allergy Skin Test Cough 05/06/2021 Other reaction(s): Itching, Swelling Food (See Comments) 09/02/2021 Plums Kiwi Extract 11/27/2019 Other reaction(s): Itching, Swelling Mushroom Extract Complex Cough 05/06/2021 Other reaction(s): Itching Shellfish-Derived Products Edema face/lips/tongue High 06/01/2021 Scallops only documented as of this encounter (statuses as of 10/23/2023) Medications Medication Sig Dispensed Refills Start Date [...] as of this encounter (statuses as of 10/23/2023) Active Problems Problem Noted Date Diagnosed Date 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 03/09/2023 PTSD (post-traumatic stress disorder) 01/31/2023 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 Family history of connective tissue disease 07/13 Autism spectrum disorder 06/02/2022 Diabetes mellitus without complication Anxiety Depression ADD (attention deficit disorder) documented as of this encounter (statuses as of 10/23/2023) Resolved Problems Problem Noted Date Diagnosed Date Resolved Date Food insecurity 09/20/2021 06/29/2022 Overview: Per [facility] Protocol Obesity, Class I, BMI 30.0-3 4.9 (see actual BMI) 01/21/2021 03/09/2023 documented as of this encounter (statuses as of 10/23/2023) Immunizations Name Administration Dates Next Due COVID-19 [...] Recorded PHQ Adult Total Score 15 10/18/2023 [facility] - Occupational Stress Questionnaire Answer [...] Progress Notes * Amelie Abarca LCSW - 10/23/2023 11:10 AM EDT I have discussed the patient's management with the medical trainee and agree with the note. Please refer to the documented findings and plan of care. This patient's visit today consisted of a service. I have reviewed the medical history, physical examination, diagnosis, and plan, as performed by the resident/fellow physician. Amelie Abarca LCSW * Argentina Souza LSW - 10/18/2023 2:02 PM EDT Patient location: HOME. I was not in a hospital or clinic location. After connecting through televideo, patient was verified with two unique identifiers. Patient (or authorized legal sales training representative) was then informed that this was a Telemedicine visit and being conducted confidentially over secure lines. Methods to assure confidentiality were taken. Patient acknowledged consent and understanding of privacy and security of the Telemedicine visit. The patient agreed to participate. My office door was closed. No one else was in the room with me. I informed the patient that I havereviewed their record in [employer] and presented the opportunity for them to ask any questions regardingthe visit today. The patient agreed to participate. Provider reviewed elements of Outpatient Services Description including limits of confidentiality, how to contact the department, risks and benefits of treatment and consent for treatment. Start Time: 2:01 Stop Time: 2:58 Total direct bafu-tj-jrlf time: 57 minutes Confirm patient's location (and address if different from the home address documented in [facility]) at the time of this appointment: ADULT THERAPY PROGRESS NOTE [address] [facility] [address] 10/18/2023 2:02 PM TYPE OF VISIT: Individual [...] an accident? (i.e work, motor vehicle) No F-Ibtq-Rwuilkzp/Ciehai-Ohzq-Kgxexx Question 10/18/2023 1:47 PM EDT - Filed [...] Suicide/Homicidal Assessment Validated Screening and Assessment Measures [place] Suicide Severity Rating Scale Results 10/04/2023 15:58 [...] Treatment Frequency of Treatment Yes, sent via Siriona 8-11 sessions approximately every 2-4 weeks Patient [...] [facility] Division of Psychiatry & Behavioral Medicine [facility] [phone] documented in this encounter Plan of Treatment Upcoming Encounters Date Type Department Care Team (Late st Contact Info) Description 11/01/2023 3:00 PM EDT Telemedicine Psychology, [facility] [address] [facility] [place] [address] Argentina Souza, SUSSY [address] [place] [address] 11/22/2023 10:00 AM EDT Office Visit [facility] [address] [place] [address] Analy Renteria MD [address] [place] [address] 11/30/2023 9:00 AM EDT Telemedicine Psychiatry, [facility] [address] [facility] [place] [address] Yanely Gracia CRNP [address] [facility] [place] [phone] Health Maintenance Due Date Last Done Comments Pneumococcal Vaccine: Pediatrics (0 to 5 Years) and At-Risk Patients (6 to 64 Years) (1 of 2 - PCV) 2002 GARDASIL-HPV IMMUNIZATION SERIES (1 - 3-dose series) 11/04/2011 DTaP,Tdap,and Td Vaccines (1 - Tdap) 11/04/2015 Hepatitis B (2 of 3 - 19+ 3-dose series) 09/30/2021 09/02/2021 COVID-19 Vaccine (4 - 2022- season) 2023 07/07/2021, 08/20/2020, 07/23/2020 Depression, Most [...] moderate documented in this encounter Care Teams Appraisal Technician Relationship Specialty Start Date End Date Analy Renteria MD [address] [place] [address] PCP - General Internal Medicine 03/09/23 documented as of this encounter
--- OUTSIDE RECORDS SUMMARY | 2024-03-12 05:53 | External Medical Summary | Summary of Care ---
Author Name Unknown Organization [facility] Address [address] [place] [address] Phone [phone] Care Team Providers Care Workers Compensation Adjuster Name Role Phone Analy Renteria MD Primary Care Provider Reason for Visit * Reason Comments Follow Up * - Authorized Specialty Diagnoses / Procedures Referred By Agatha t Referred To Contact Referral ID Status Reason Start Date Expiration Date V isits Requested Visits Authorized [id number] Authorized 06/15/2023 06/13/[phone] Encounter Details Date Type Department Care Team (Late st Contact Info) Description 10/04/2023 3:00 PM EDT Telemedicine Psychology, [address] [place] [address] Argentina Souza LSW [address] [place] [address] TY (generalized anxiety disorder)*; MDD (major depressive [...] as of this encounter (statuses as of 10/17/2023) Medications Medication Sig Dispensed Refills Start Date [...] 180 Tablet 09/01/2023 Active Additional Information Patient taking differently:50 [...] estradiol for injection. 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 Family history of connective tissue disease 07/13 Autism spectrum disorder 06/02/2022 Diabetes mellitus without complication Anxiety Depression ADD (attention deficit disorder) documented as of this encounter (statuses as of 10/17/2023) Resolved Problems Problem Noted Date Diagnosed Date Resolved Date Food insecurity 09/20/2021 06/29/2022 Overview: Per [facility] Protocol Obesity, Class I, BMI 30.0-3 4.9 (see actual BMI) 01/21/2021 03/09/2023 documented as of this encounter (statuses as of 10/17/2023) Immunizations Name Administration Dates Next Due COVID-19 [...] Recorded PHQ Adult Total Score 16 10/04/2023 [facility] [place] [facility] - Occupational Stress [...] Progress Notes * Amelie Abarca LCSW - 10/17/2023 9:20 AM EDT I have discussed the patient's management with the medical trainee and agree with the note. Please refer to the documented findings and plan of care. This patient's visit today consisted of a service. I have reviewed the medical history, physical examination, diagnosis, and plan, as performed by the resident/fellow physician. Amelie Abarca LCSW * Argentina Souza LSW - 10/04/2023 3:57 PM EDT Patient location: HOME. I was not in a hospital or clinic location. After connecting through televideo, patient was verified with two unique identifiers. Patient (or authorized legal in home sales representative) was then informed that this [...] that I have reviewed their record in [facility] and presented the opportunity for them to ask any questions regarding the visit today. The patient agreed to participate. Provider reviewed elements of Outpatient Services Description including limits of confidentiality, how to contact the department, risks and benefits of treatment and consent for treatment. Start Time: 2:59 Stop Time: 3:57 Total direct rigj-sh-upwz time: 61 minutes Confirm patient's location (and address if different from the home address documented in [facility]) at the time of this appointment: ADULT THERAPY PROGRESS NOTE Luiz, Rashi [address] [facility] [address] 10/04/2023 3:57 PM TYPE OF VISIT: Individual DIAGNOSIS: Generalized Anxiety Disorder Major Depressive Disorder REASON FOR FOLLOW-UP: Individual therapy Session #: 4 SESSION FOCUS: Relationship Current/History SESSION SUMMARY/NOTES: Kelli presented for the appointment with a flat affect and depressed moood. Kelli reported endinga relationship that was important to her, but no longer working in an emotionally satisfying way. Kelli expressed needing to end another relationship but wanted to take time to grieve the first lossbefore ending the second relationship. Kelli is continuing to work on placing boundaries and making choices to benefit her mentally and emotionally. Kelli has an appointment scheduled in two weeks and is aware how to reach me should sheneed a sooner appointment. PROGRESS TOWARDS GOALS: Kelli has been able to make boundaries in relationships and ended a relationship that was no longer productive/satisfying. Objective Measures: Ty-7 Question 10/04/2023 2:11 PM EDT - Filed by Patient Over [...] of all questions (range: 0 - 21) 7 (Mild) Phq9-Depression Question 10/04/2023 2:12 PM EDT - Filed by Patient Over [...] days Feeling tired or having little energy Several days Poor appetite or overeating Several days [...] Question 4 score (range: 0 - 3) 1 Question 5 score (range: 0 - 3) 1 Question 6 score (range: 0 - 3) 2 Question 7 score (range: 0 - 3) 3 Question 8 score (range: 0 - 3) 1 Question 9 score (range: 0 - 3) 1 Sum of all PHQ9 questions. (range: 0 - 27) 16 (Moderately Severe Depression) Myc Visit Accident Related Question Question 10/04/2023 2:12 PM EDT - Filed by Patient Is this visit related to an accident? (i.e work, motor vehicle) No Q-Dteu-Nemxzcdk/Bwfuow-Fqgr-Xvxodh Question 10/04/2023 2:13 PM EDT - Filed by Patient In [...] Treatment Frequency of Treatment Yes, sent via Deehubs 8-11 sessions approximately every 2-4 weeks Patient Identified Needs/Goals Interventions Objective/ Discharge Criteria Problem/Need 1: Anxiety, Depression, PTSD, and Emotional Regulation Cognitive Behavioral Therapy (CBT), which includes psychoeducation, cognitive restructuring, relaxation/diaphragmatic breathing, problem-solving, and behavioral activation PHQ<5, TY<5, and Achieve optimal treatment response on optimally safe medication regimen INTERVENTION: Acceptance and Commitment Therapy (ACT) PATIENT EDUCATION: Verbal & written MENTAL STATUS [...] Suicide/Homicidal Assessment Validated Screening and Assessment Measures [place] Suicide Severity Rating Scale Results 09/18/2023 15:02 [place] SUICIDE SEVERITY RATING SCALE (C-SSRS) Have [...] Plan: see Crisis Plan in Treatment Plan Pt has had passive SI thoughts and is aware of crisis resources. Use Edin- Brown Suicide Safety Plan when [place] is Moderate or High Risk, or whenever clinical judgment would indicate need for full crisis plan to be done. FOLLOW-UP PLAN: Return: 2 weeks Action Plan: 1. Continue Individual Therapy 2. Continue medication management with [facility]. Reminder to complete Treatment Plan Update in "Plan" section of Plan Navigator Treatment plan reviewed with the patient. Patient voices understanding and concurs with plan. SUSSY Mcdermott Division of Psychiatry & Behavioral Medicine [facility] [phone] documented in this encounter Plan of Treatment Upcoming Encounters Date Type Department Care Team (Late st Contact Info) Description 10/18/2023 2:00 PM EDT Telemedicine Psychology, [facility] [address] [place] [address] Argentina Souza, SUSSY [address] [place] [address] 11/22/2023 10:00 AM EDT Office Visit Family [facility] [address] [facility] [place] [address] Analy Renteria MD [address] [place] [address] 11/30/2023 9:00 AM EDT Telemedicine Psychiatry, [facility] [address] [place] [address] Yanely Gracia CRNP [address] [place] [address] Health Maintenance Due Date Last Done [...] moderate documented in this encounter Care Teams Workers Compensation Adjuster Relationship Specialty Start Date End Date Analy Renteria MD [address] [place] [address] PCP - General Internal Medicine 03/09/23 documented as of this encounter
--- OUTSIDE RECORDS SUMMARY | 2024-03-12 05:54 | External Medical Summary | Summary of Care ---
Author Name Unknown Organization [facility] Address [address] [place] [address] Phone [phone] Care Team Providers Care Post Exchange Manager Name Role Phone Analy Renteria MD Primary Care Provider Reason for Visit * Reason Comments Follow Up * - Authorized Specialty Diagnoses / Procedures Referred By Agatha t Referred To Contact Referral ID Status Reason Start Date Expiration Date V isits Requested Visits Authorized [id number] Authorized 06/15/2023 06/13/[phone] Encounter Details Date Type Department Care Team (Late st Contact Info) Description 09/15/2023 1:00 PM EDT Telemedicine Psychology, [address] [place] [address] Argentina Souza LSW [address] [place] [address] TY (generalized anxiety disorder)*; MDD (major depressive disorder), recurrent episode, moderate (HCC) Allergies Active Allergy Reactions Criticality Noted Date Comments Banana 11/13/2019 Other reaction(s): Itching Black Lysite Pollen Allergy Skin Test Cough 05/06/2021 Other reaction(s): Itching, Swelling Food (See Comments) 09/02/2021 Plums Kiwi Extract 11/27/2019 Other reaction(s): Itching, Swelling Mushroom Extract Complex Cough 05/06/2021 Other reaction(s): Itching Shellfish-Derived Products Edema face/lips/tongue High 06/01/2021 Scallops only documented as of this encounter (statuses as of 09/18/2023) Medications Medication Sig Dispensed Refills Start Date End Date Status busPIRone HCl 10 MG Oral Tablet (Buspar)Indications:A nxiety Take 1 Tablet by mouth in the morning and 1 Tablet before bedtime. 180 Tablet 1 09/01/2023 Active Estradiol 2 MG Oral TabletIndications:Gen ozzie dysphoria in adult Take 1 Tablet by mouth 2 times a day. Let tablet dissolve under tongue. 180 Tablet 1 09/01/2023 Active medroxyPROGESTERone Acetate [...] 09/01/2023 Active Spironolactone 50 MG Oral Tablet (Aldactone)Indication s:Gender dysphoria in adult Take 1 Tablet by mouth in the morning and 1 Tablet before bedtime. 180 Tablet 1 09/01/2023 Active Amphetamine-Dextroamp hetamine 5 MG Oral Tablet (Adderall)Indications :Attention deficit disorder, unspecified hyperactivity presence Take 1 Tablet by mouth every evening. 30 Tablet 0 09/01/2023 Active Adderall XR 10 MG Oral Capsule Extended Release 24 HourIndications:Atten tion deficit disorder, unspecified hyperactivity presence Take 1 Capsule by mouth in the morning. 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 Family history of connective tissue disease 07/13 Autism spectrum disorder 06/02/2022 Diabetes mellitus without complication Anxiety Depression ADD (attention deficit disorder) documented as of this encounter (statuses as of 09/18/2023) Resolved Problems Problem Noted Date Diagnosed Date Resolved Date Food insecurity 09/20/2021 06/29/2022 Overview: Per [facility] Protocol Obesity, Class I, BMI 30.0-3 4.9 (see actual BMI) 01/21/2021 03/09/2023 documented as of this encounter (statuses as of 09/18/2023) Immunizations Name Administration Dates Next Due COVID-19 [...] Answer Date Recorded PHQ Adult Total Score 10 [facility]20[facility] Answer [...] Progress Notes * Argentina Souza, SUSSY - 09/15/2023 1:00 PM EDT Patient location: HOME. I was not in a hospital or clinic location. After connecting through Rezzieideo, patient was verified with two unique identifiers. Patient (or authorized legal retention representative) was then informed that this was [...] that I have reviewed their record in [facility] and presented the opportunity for them to ask any questions regarding the visit today. The patient agreed to participate. Provider reviewed elements of Outpatient Services Description including limits of confidentiality, how to contact the department, risks and benefits of treatment and consent for treatment. Start Time: 12:54 Stop Time: 1:52 Total direct keyt-vp-ljkv time: 52 minutes Confirm patient's location (and address if different from the home address documented in [facility]) at the time of this appointment: ADULT THERAPY PROGRESS NOTE [address] [facility] [address] 09/15/2023 12:54 PM TYPE OF VISIT: Individual DIAGNOSIS: Generalized Anxiety Disorder Major Depressive Disorder REASON FOR FOLLOW-UP: Individual therapy Session #: 3 SESSION FOCUS: Updates on social supports/boundaries SESSION SUMMARY/NOTES: Kelli presented on time for the appointment with a flat affect and congruent mood. Kelli's hygiene was noticeably improved since the previous session. Kelli reported a new relationship that has particularly boosted her mood. She stated making an effort in the relationship to move slowly and to honor the boundaries she set. Kelli expressed making boundaries with a previous friend and no longerspeaking with them. Nicholas identified having a difficult time making her own needs known and is willing to work on becoming more vocal. Kelli noted finding social cues very confusing and exhausting trying to figure out what other people mean with words and body language. Kelli stated she wants to be able to "stand on her own". Kelli was encouraged to continue making boundaries and journaling to share in therapy sessions. Nicholas was agreeable to the aforementioned plan and has a return appointment scheduled in two weeks. PROGRESS TOWARDS GOALS: Kelli made substantial progress in social contacts and continuing to place boundaries. PHQ-9 and TY-7 reduced by about half. Objective Measures: Ty-7 Question 09/15/2023 12:34 PM EDT - Filed by Patient Over [...] 0 - 21) 7 (Mild) Phq9-Depression Question 09/15/2023 12:37 PM EDT - Filed by Patient Over the last two weeks, how often have you been bothered by any of the following problems? Little interest or pleasure in doing things Several days Feeling down, depressed or hopeless Not at all Over the last two weeks, how often have you been bothered by any of the following problems? Trouble falling or staying asleep, or sleeping too much Several days Feeling tired or having little energy Several days Poor appetite or overeating Several days Feeling bad about yourself - or that you are a failure, or have let yourself or your family down Several days Trouble concentrating on things, such as reading the newspaper or watching television Nearly everyday Moving or speaking so slowly that other people could have noticed. Or the opposite - being so fidgety or restless that you have been moving around a lot more than usual More than half the days Thoughts that you would be better off , or of hurting yourself Not at all Question 1 score (range: 0 - 3) 1 Question 2 score (range: 0 - 3) 0 Question 3 score (range: 0 - 3) 1 Question 4 score (range: 0 - 3) 1 Question 5 score (range: 0 - 3) 1 Question 6 score (range: 0 - 3) 1 Question 7 score (range: 0 - 3) 3 Question 8 score (range: 0 - 3) 2 Question 9 score (range: 0 - 3) 0 Sum of all PHQ9 questions. (range: 0 - 27) 10 (Moderate Depression) Myc Visit Accident Related Question Question 09/15/2023 12:38 PM EDT - Filed by Patient Is this visit related to an accident? (i.e work, motor vehicle) No Z-Ntpf-Qmygritk/Csclce-Rven-Xxuepz Question 09/15/2023 12:38 PM EDT - Filed by Patient In the past month, have you wished you were or wished you could go to sleep and not wake up? In the past month, have you actually [...] these things in the past 3 months? Yes If YES, what did you do? Objective Measures: Ty-7 Question 08/25/2023 11:55 AM EDT - Filed by Patient Over [...] of all questions (range: 0 - 21) 17 (Severe) Phq9-Depression Question 08/25/2023 11:56 AM EDT - Filed by Patient Over [...] all PHQ9 questions. (range: 0 - 27) 18 (Moderately Severe Depression) Outpatient Adult Therapy Treatment Plan Treatment plan [...] ineffective (e.g: ED, hotlines): [phone]/ Family Received Copy of Treatment Plan Duration of Treatment Frequency of Treatment Yes, sent via Apisphere 8-11 sessions approximately every 2-4 weeks Patient [...] OBSERVATIONS: Appearance: within normal limits Behavior: restless and fidgety Speech: normal pitch, normal rate, and normal volume Mood: anxious Affect: mood-congruent Thought Process: within normal limits Thought Content: Delusions: No Hallucinations: No Obsessions: No Homicidal: No Suicidal: No Sensorium: alert and oriented to person, place, time and situation Cognition: grossly intact Insight: good Judgment: good Suicide/Homicidal Assessment Validated Screening and Assessment Measures [place] Suicide Severity Rating Scale Results 08/28/2023 10:47 [place] SUICIDE SEVERITY RATING SCALE (C-SSRS) Have you wished you were or wished you could go to sleep and not wake up? (In the Past Month or Since Last Visit) No Have you had any actual thoughts of [...] past 3 months? No Level of Risk No Risk Identified ADMINISTER [place] SUICIDE SCREENING IN ROOMING TOOL. Risk and Protective Factors must be completed for any positive screen (pt answers yes to any items on the CSSRS) Crisis Plan: see Crisis Plan in Treatment Plan Use Psych General Crisis Plan when [place] is No Risk or Low Risk Use Edin-Brown Suicide Safety Plan when [place] is Moderate or High Risk, or whenever clinical judgment would indicate need for full crisis plan to be done. FOLLOW-UP PLAN: Return: 2 weeks Action Plan: 1. Continue Individual Therapy 2. Continue medication management with [facility]. Reminder to complete Treatment Plan Update in "Plan" section of Plan Navigator Treatment plan reviewed with the patient. Patient voices understanding and concurs with plan. SUSSY Mcdermott Division of Psychiatry & Behavioral Medicine [facility] [phone] documented in this encounter Plan of Treatment Upcoming Encounters Date Type Department Care Team (Late st Contact Info) Description 09/18/2023 5:40 PM EDT Office Visit [facility] [address] [place] [address] Analy Renteria MD [address] [place] [address] 10/04/2023 3:00 PM EDT [address]med[address] [address] Argentina Souza LSW [address] [facility] [place] [address] 10/10/2023 9:00 AM EDT Office Visit Medical Genetics [address], Juan Jose [address] [place], [place] [id number] Mono Mcgowan MD [address] [place] [address] 10/18/2023 2:00 PM EDT Telemedicine Psychology, [facility] [address] [place] [address] Argentina Souza, SELF DEFENSE INSTRUCTOR [address] [facility] [place] [address] 11/22/2023 10:00 AM EDT Office Visit Family Practice [facility] [address] [place] [address] Analy Renteria MD [address] [place] [address] 11/30/2023 9:00 AM EDT Telemedicine Psychiatry, [facility] [address] [place] [address] Yanely Gracia CRNP [address] [place] [address] Health Maintenance Due Date Last Done [...] fire each visit until score < 10) 09/16/2023 09/15/2023, 08/25/2023, 08/18/2023 HbA1c 11/24/2023 05/26/2023, 01/13, 09/01/2021, Additional history exists Diabetic Foot Exam 02/01/2024 01/31/2023, 09/02/2021 GFR 02/01/2024 01/31/2023, 03/0 06/2022, 04/15/2022, Additional history exists Diabetic Eye Exam 03/09/2024 [...] moderate documented in this encounter Care Teams Post Exchange Manager Relationship Specialty Start Date End Date Analy Renteria MD [address] [place] [address] PCP - General Internal Medicine 03/09/23 documented as of this encounter
--- OUTSIDE RECORDS SUMMARY | 2024-03-12 05:54 | External Medical Summary | Summary of Care ---
Author Name Unknown Organization [facility] Address [address] [place] [address] Phone [phone] Care Team Providers Care It Sales Representative Name Role Phone Analy Renteria MD Primary Care Provider Reason for Visit * Reason Comments Follow Up * - Authorized Specialty Diagnoses / Procedures Referred By Agatha t Referred To Contact Referral ID Status Reason Start Date Expiration Date V isits Requested Visits Authorized [id number] Authorized 06/15/2023 06/13/2024 [id number] Encounter Details Date Type Department Care Team (Late st Contact Info) Description 10/04/2023 3:00 PM EDT Telemedicine Psychology, [address] [place] [address] Argentina Souza LSW [address] [place] [address] TY (generalized anxiety disorder)*; MDD (major depressive [...] as of this encounter (statuses as of 10/05/2023) Medications Medication Sig Dispensed Refills Start Date [...] as of this encounter (statuses as of 10/05/2023) Active Problems Problem Noted Date Diagnosed Date 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 03/09/2023 PTSD (post-traumatic stress disorder) 01/31/2023 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 Family history of connective tissue disease 07/13 Autism spectrum disorder 06/02/2022 Diabetes mellitus without complication Anxiety Depression ADD (attention deficit disorder) documented as of this encounter (statuses as of 10/05/2023) Resolved Problems Problem Noted Date Diagnosed Date Resolved Date Food insecurity 09/20/2021 06/29/2022 Overview: Per [facility] Protocol Obesity, Class I, BMI 30.0-3 4.9 (see actual BMI) 01/21/2021 03/09/2023 documented as of this encounter (statuses as of 10/05/2023) Immunizations Name Administration Dates Next Due COVID-19 [...] Recorded PHQ Adult Total Score 16 10/04/2023 [place] [facility] - Occupational [...] this encounter Progress Notes * Argentina Souza, JAVA J2EE APPLICATION DEVELOPER - 10/04/2023 3:57 PM EDT Patient location: HOME. I was not in a hospital or clinic location. After connecting through [employer], patient was verified with two unique identifiers. Patient (or authorized legal financial services representative) was then informed that this [...] that I have reviewed their record in [facility] and presented the opportunity for them to ask any questions regarding the visit today. The patient agreed to participate. Provider reviewed elements of Outpatient Services Description including limits of confidentiality, how to contact the department, risks and benefits of treatment and consent for treatment. Start Time: 2:59 Stop Time: 3:57 Total direct sjiv-rp-ixmi time: 61 minutes Confirm patient's location (and address if different from the home address documented in Epic) at the time of this appointment: ADULT THERAPY PROGRESS NOTE Luiz, [address] [facility] [address] 10/04/2023 3:57 PM TYPE OF VISIT: Individual [...] an accident? (i.e work, motor vehicle) No T-Eofe-Mtoldkfz/Jtedly-Ztsf-Ywukxb Question 10/04/2023 2:13 PM EDT - Filed [...] ineffective (e.g: ED, hotlines): Suicide and Crisis [facility] - 988 Patient/ Family Received Copy of Treatment Plan Duration of Treatment Frequency of Treatment Yes, sent via [employer] 8-11 sessions approximately every 2-4 weeks Patient [...] Suicide/Homicidal Assessment Validated Screening and Assessment Measures [place] Suicide Severity Rating Scale Results 09/18/2023 15:02 [...] Use [facility] Suicide Safety Plan when Addison is Moderate or High Risk, or whenever clinical judgment would indicate need for full crisis plan to be done. FOLLOW-UP PLAN: Return: 2 weeks Action Plan: 1. Continue Individual Therapy 2. Continue medication management with [facility]. Reminder to complete Treatment Plan Update in "Plan" section of Plan Navigator Treatment plan reviewed with the patient. Patient voices understanding and concurs with plan. SUSSY Mcdermott Division of Psychiatry & Behavioral Medicine [facility] [phone] documented in this encounter Plan of Treatment Upcoming Encounters Date Type Department Care Team (Late st Contact Info) Description 10/10/2023 9:00 AM EDT Office Visit Medical Genetics [address], [address] [place] [address] Mono Mcgowan MD [address] [place] [address] 10/18/2023 2:00 PM EDT Telemedicine Psychology, [address] [place] [address] Argentina Souza LSW 21 [facility] [place] [address] 11/22/2023 10:00 AM EDT Office Visit Family Practice [facility] [address] [place] [address] Analy Renteria MD [address] [place] [address] 11/30/2023 9:00 AM EDT Telemedicine Psychiatry, [facility] 200 [facility] [place] [address] Yanely Gracia CRNP 200 [facility] [place] [address] Health Maintenance Due Date Last Done [...] moderate documented in this encounter Care Teams It Sales Representative Relationship Specialty Start Date End Date Analy eRnteria MD [address] [place] [address] PCP - General Internal Medicine 03/09/23 documented as of this encounter
--- OUTSIDE RECORDS SUMMARY | 2024-03-12 05:54 | External Medical Summary | Summary of Care ---
Author Name Unknown Organization [facility] Address [address] [place] [address] Phone [phone] Care Team Providers Care Institute Scientist Name Role Phone Analy Renteria MD Primary Care Provider Reason for Visit * Reason Comments eRx-Medication Refill Encounter Details Date Type Department Care Team (Late st Contact Info) Description 09/25/2023 Refill Family Practice [facility] [address] [place] [address] Analy Renteria MD [address] [facility] [address] Type 2 diabetes mellitus with hemoglobin A1c goal of less than 7.0% ([facility]) Allergies Active Allergy Reactions Criticality Noted Date Comments Banana 11/13/2019 Other reaction(s): Itching Black [place] Pollen Allergy Skin Test Cough 05/06/2021 Other reaction(s): Itching, Swelling Food (See Comments) 09/02/2021 Plums Kiwi Extract 11/27/2019 Other reaction(s): Itching, Swelling Mushroom Extract Complex Cough 05/06/2021 Other reaction(s): Itching Shellfish-Derived Products Edema face/lips/tongue High 06/01/2021 Scallops only documented as of this encounter (statuses as of 09/27/2023) Medications Medication Sig Dispensed Refills Start Date [...] the morning. 30 Capsule 0 09/01/2023 Active Estradiol Valerate 20 MG/ML Intramuscular [...] as of this encounter (statuses as of 09/27/2023) Active Problems Problem Noted Date Diagnosed Date 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 03/09/2023 PTSD (post-traumatic stress disorder) 01/31/2023 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 Family history of connective tissue disease 07/13 Autism spectrum disorder 06/02/2022 Diabetes mellitus without complication Anxiety Depression ADD (attention deficit disorder) documented as of this encounter (statuses as of 09/27/2023) Resolved Problems Problem Noted Date Diagnosed Date Resolved Date Food insecurity 09/20/2021 06/29/2022 Overview: Per [facility] Protocol Obesity, Class I, BMI 30.0-3 4.9 (see actual BMI) 01/21/2021 03/09/2023 documented as of this encounter (statuses as of 09/27/2023) Immunizations Name Administration Dates Next Due COVID-19 [...] Recorded PHQ Adult Total Score 10 09/15/2023 [facility] - Occupational [...] encounter Miscellaneous Notes * Telephone Encounter - Jing Obando [facility] - 09/27/2023 6:06 AM EDT Refused Prescriptions: Disp Refills metFORMIN HCl 500 MG Oral Tablet (Glucopha*270 Ta*1 Sig: TAKE 1TABLET BY MOUTH WITH BREAKFAST AND 2 TABLETS WITH DINNERRefused By: JING OBANDO for Refusal: Too soonReason for Refusal Comment: sent 4.19 call if didnt receive documented in this encounter Plan of Treatment Upcoming Encounters Date Type Department Care Team (Late st Contact Info) Description 10/04/2023 3:00 PM EDT Telemedicine Psychology, [address] [place] [address] Argentina Souza, ELECTRICIAN [employer]IP [address] [place] [address] 10/10/2023 9:00 AM EDT Office Visit Medical Genetics [address], Juan Jose [address] [place], [place] [id number] Mono Mcgowan MD [address] [facility] [address] [place], [place] [id number] 10/18/2023 2:00 PM EDT Telemedicine Psychology, [address] [place] [address] Argentina Souza, [facility] [address] [place] [address] 11/22/2023 10:00 AM EDT Office Visit Family Practice [facility] 132 [facility] [place] [address] Analy Renteria MD 132 [place] [address] 11/30/2023 9:00 AM EDT Telemedicine Psychiatry, [address] [place] [address] Yanely Gracia CRNP 200 [facility] [place] [id number] Health Maintenance Due Date Last Done Comments [...] as of this encounter Visit Diagnoses Diagnosis Type 2 diabetes mellitus with hemoglobin A1c goal of less than 7.0% (HCC) documented in this encounter Care Teams Institute Scientist Relationship Specialty Start Date End Date Analy Renteria MD [address] [place] [address] PCP - General Internal Medicine 03/09/23 documented as of this encounter
--- OUTSIDE RECORDS SUMMARY | 2024-03-12 05:54 | External Medical Summary | Summary of Care ---
Author Name Unknown Organization [facility] Address [address] [place] [address] Phone [phone] Care Team Providers Care Thermal Cutting Machine Operator Name Role Phone Analy Renteria MD Primary Care Provider Reason for Visit * Reason Comments Follow Up * - Authorized Specialty Diagnoses / Procedures Referred By Agatha t Referred To Contact Referral ID Status Reason Start Date Expiration Date V isits Requested Visits Authorized [id number] Authorized 06/15/2023 06/13/[phone] Encounter Details Date Type Department Care Team (Late st Contact Info) Description 09/15/2023 1:00 PM EDT Telemedicine Psychology, [address] [place] [address] Argentina Souza LSW [address] [place] [address] TY (generalized anxiety disorder)*; MDD (major depressive disorder), recurrent episode, moderate (HCC) Allergies Active Allergy Reactions Criticality Noted Date Comments Banana 11/13/2019 Other reaction(s): Itching Black [place] Pollen Allergy Skin Test Cough 05/06/2021 Other reaction(s): Itching, Swelling Food (See Comments) 09/02/2021 Plums Kiwi Extract 11/27/2019 Other reaction(s): Itching, Swelling Mushroom Extract Complex Cough 05/06/2021 Other reaction(s): Itching Shellfish-Derived Products Edema face/lips/tongue High 06/01/2021 Scallops only documented as of this encounter (statuses as of 09/28/2023) Medications Medication Sig Dispensed Refills Start Date End Date Status busPIRone HCl 10 MG Oral Tablet (Buspar)Indication s:Anxiety Take 1 Tablet by mouth in the morning and 1 Tablet before bedtime. 180 Tablet 1 4 Active medroxyPROGESTERon e Acetate 10 MG Oral Tablet (Provera)Indicatio ns:Gender dysphoria in adult Take 1 Tablet by mouth in the morning. 90 Tablet 1 4 Active metFORMIN HCl 500 MG Oral Tablet (Glucophage)Indica tions:Type 2 diabetes mellitus with hemoglobin A1c goal of less than 7.0% ([facility]) Take 1 tab by mouth with breakfast and 2 tabs by mouth with dinner. 270 Tablet 1 4 Active Prazosin HCl 1 MG Oral Capsule (Minipress)Indicat ions:PTSD (post-traumatic stress disorder) Take 1 Capsule by mouth at bedtime. 90 Capsule 1 4 Active Spironolactone 50 MG Oral Tablet (Aldactone)Indicat ions:Gender dysphoria in adult Take 1 Tablet by mouth in the morning and 1 Tablet before bedtime. 180 Tablet 1 4 Active Additional Information Patient taking differently:50 mg OralDaily(AM), Reported on 09/18/2023 Amphetamine-Dextro amphetamine 5 MG Oral Tablet (Adderall)Indicati ons:Attention deficit disorder, unspecified hyperactivity presence Take 1 Tablet by mouth every evening. 30 Tablet 0 4 Active Adderall XR 10 MG Oral Capsule Extended Release 24 HourIndications:At tention deficit disorder, unspecified hyperactivity presence Take 1 Capsule by mouth in the morning. 30 Capsule 0 4 Active Estradiol 2 MG Oral TabletIndications: Gender dysphoria in adult Take 1 Tablet by mouth 2 times a day. Let tablet dissolve under tongue. 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 Family history of connective tissue disease 07/13 Autism spectrum disorder 06/02/2022 Diabetes mellitus without complication Anxiety Depression ADD (attention deficit disorder) documented as of this encounter (statuses as of 09/28/2023) Resolved Problems Problem Noted Date Diagnosed Date Resolved Date Food insecurity 09/20/2021 06/29/2022 Overview: Per [facility] Protocol Obesity, Class I, BMI 30.0-3 4.9 (see actual BMI) 01/21/2021 03/09/2023 documented as of this encounter (statuses as of 09/28/2023) Immunizations Name Administration Dates Next Due COVID-19 [...] Recorded PHQ Adult Total Score 10 09/15/2023 [facility] [place] of Occupat ional Health - Occupational Stress [...] Progress Notes * Amelie Abarca LCSW - 09/28/2023 8:05 AM EDT I have discussed the patient's management with the medical trainee and agree with the note. Please refer to the documented findings and plan of care. This patient's visit today consisted of a service. I have reviewed the medical history, physical examination, diagnosis, and plan, as performed by the trainee. Amelie Abarca LCSW * Argentina Souza LSW - 09/15/2023 1:00 PM EDT Patient location: HOME. I was not in a hospital or clinic location. After connecting through televideo, patient was verified with two unique identifiers. Patient (or authorized legal truck sales representative) was then informed that this [...] reviewed their record in [facility] and presented the opportunity for them to ask any questions regarding the visit today. The patient agreed to participate. Provider reviewed elements of Outpatient Services Description including limits of confidentiality, how to contact the department, risks and benefits of treatment and consent for treatment. Start Time: 12:54 Stop Time: 1:52 Total direct bmwj-rm-lhwn time: 52 minutes Confirm patient's location (and address if different from the home address documented in [facility]) at the time of this appointment: ADULT THERAPY PROGRESS NOTE Psychology, [address] [place] [address] 09/15/2023 12:54 PM TYPE OF VISIT: Individual [...] an accident? (i.e work, motor vehicle) No K-Xvyu-Hcyfbvsn/Bghsji-Rszv-Gqipxc Question 09/15/2023 12:38 PM EDT - Filed [...] Treatment Frequency of Treatment Yes, sent via [employer] 8-11 sessions approximately every 2-4 weeks Patient [...] Suicide/Homicidal Assessment Validated Screening and Assessment Measures [place] Suicide Severity Rating Scale Results 08/28/2023 10:47 [...] Plan Use Psych General Crisis Plan when York is No Risk or Low Risk Use [facility] Suicide Safety Plan when York is Moderate or High Risk, or whenever clinical judgment would indicate need for full crisis plan to be done. FOLLOW-UP PLAN: Return: 2 weeks Action Plan: 1. Continue Individual Therapy 2. Continue medication management with [facility]. Reminder to complete Treatment Plan Update in "Plan" section of Plan Navigator Treatment plan reviewed with the patient. Patient voices understanding and concurs with plan. SUSSY Mcdermott Division of Psychiatry & Behavioral Medicine [facility] [phone] documented in this encounter Plan of Treatment Upcoming Encounters Date Type Department Care Team (Late st Contact Info) Description 10/04/2023 3:00 PM EDT Telemedicine Psychology, [facility] 200 [facility] [place] [address] Argentina Souza, PREPLEATER [address] [place] [address] 10/10/2023 9:00 AM EDT Office Visit Medical Genetics 15 [facility], Juan Jose [address] [place], [place] [phone] oMno Mcgowan MD [address] [place], [place] [phone] 10/18/2023 2:00 PM EDT Telemedicine Psychology, [facility] 200 [facility] [place] [address] Argentina Souza, PREPLEATER [address] [place] [address] 11/22/2023 10:00 AM EDT Office Visit Family Practice [facility] 132 [facility] [place] [address] Analy Renteria MD 132 [facility] [place] [address] 11/30/2023 9:00 AM EDT Telemedicine Psychiatry, [facility] 200 [facility] [place] [address] Yanely Gracia CRNP 200 [facility] [place] [phone] Health Maintenance Due Date Last Done Comments Pneumococcal Vaccine: Pediatrics (0 to 5 Years) and At-Risk Patients (6 to 64 Years) (1 of 2 - PCV) 2002 GARDASIL-HPV IMMUNIZATION SERIES (1 - 3-dose series) 11/04/2011 DTaP,Tdap,and Td Vaccines (1 - Tdap) 11/04/2015 Hepatitis B (2 of 3 - 19+ 3-dose series) 09/30/2021 09/02/2021 COVID-19 Vaccine ( season) 2023 07/07/2021, 08/20/2020, 07/23/2020 Depression, Most [...] moderate documented in this encounter Care Teams Thermal Cutting Machine Operator Relationship Specialty Start Date End Date Analy Renteria MD [address] [place] [place] [address] PCP - General Internal Medicine 03/09/23 documented as of this encounter
--- OUTSIDE RECORDS SUMMARY | 2024-03-12 05:54 | External Medical Summary ---
Author Name Unknown Address Unknown Organization : Laboratory Report Ordering Provider Test Date Status FAHEEM GRUBBS 10/10/2023 11:23:22 Final Sample collected in clinic.
Estella will bill patient's insurance Observation Date Value Abnormality Reference (Units ) Status REFERENCE LAB SCANNED REPORT 10/10/2023 11:23:22 RESULT SCAN Final Performing Location
--- OUTSIDE RECORDS SUMMARY | 2024-03-12 05:54 | External Medical Summary ---
Author Name Unknown Address Unknown Organization [id number]:[facility] [place] [address] [place] [address] Laboratory Report Ordering Provider Test Date Status GUTIERREZ PATEL 09/18/2023 18:44:41 Final Observation Date Value Abnormality Reference (Units) Status Bacteria identified in Specimen by Culture 09/18/2023 18:44:41 No significant growth Final Test: Culture, Urine, Quanti tative
Specimen Source: Urine, Clean Catch
Specimen Type: Urine
Specimen Date: 09/18/2023 6:44 PM
Result Date: 09/20/2023 10:05 AM
Result Status: Final result
Resulting Lab: [facility]
[address]
[place] [address]

CULTURE

No significant growth

null Performing Location [facility] [address] [facility] [address]
--- OUTSIDE RECORDS SUMMARY | 2024-03-12 05:54 | External Medical Summary ---
Author Name Unknown Address Unknown Organization : Laboratory Report Ordering Provider Test Date Status FAHEEM GRUBBS 10/10/2023 11:41:27 Final Observation Date Value Abnormality Reference (Units ) Status REFERENCE LAB SCANNED REPORT 10/10/2023 11:41:27 RESULT SCAN Final Performing Location
--- OUTSIDE RECORDS SUMMARY | 2024-03-12 05:54 | External Medical Summary ---
Author Name Unknown Address Unknown Organization [id number]:[facility] [address] [place] [address] Laboratory Report Ordering Provider Test Date Status GUTIERREZ PATEL 09/18/2023 18:44:41 Final Observation Date Value Abnormality Reference (Units ) Status Color of Urine by Auto 09/18/2023 18:44:41 Yellow Light Yellow, Yellow, Dark Yellow Final Clarity, Urine 09/18/2023 18:44:41 Clear Clear Final Glucose [Mass/volume] in Urine by Automated test strip 09/18/2023 18:44:41 Negative Negative (mg/dL) Final Bilirubin.total [Presence] in Urine by Automated test strip 09/18/2023 18:44:41 Negative Negative Final Ketones [Mass/volume] in Urine by Automated test strip 09/18/2023 18:44:41 Negative Negative (mg/dL) Final Specific gravity, Urine 09/18/2023 18:44:41 1.020 1.003-1.030 Final Hemoglobin [Presence] in Urine by Automated test strip 09/18/2023 18:44:41 Negative Negative Final pH, Urine 09/18/2023 18:44:41 7.0 5.0-7.5 (Units) Final Protein [Mass/volume] in Urine by Automated test strip 09/18/2023 18:44:41 Negative Negative (mg/dL) Final Urobilinogen [Mass/volume] in Urine by Automated test strip 09/18/2023 18:44:41 0.2 0.2, 1.0 (mg/dL) Final Nitrite [Presence] in Urine by Automated test strip 09/18/2023 18:44:41 Negative Negative Final Leukocyte esterase [Presence] in Urine by Automated test strip 09/18/2023 18:44:41 Negative Negative Final RBC, Urine 09/18/2023 18:44:41 3-5 Abnormal 0-2 (/HPF) Final WBC, Urine 09/18/2023 18:44:41 0-2 0-2 (/HPF) Final Bacteria [#/area] in Urine sediment by Microscopy high power field 09/18/2023 18:44:41 0-25 0-25 (/HPF) Final Performing Location [facility] [place] [address] [facility] [address]
--- OUTSIDE RECORDS SUMMARY | 2024-03-12 05:54 | External Medical Summary | Summary of Care ---
Author Name Unknown Organization [facility] Address [address] [place] [address] Phone [phone] Care Team Providers Care Account Strategist Name Role Phone Analy Renteria MD Primary Care Provider Encounter Details Date Type Department Care Team (Late st Contact Info) Description 10/02/2023 Documentation Medical Genetics [address] , Juan Jose [address] [place] [address] Kandis Douglas, MS [address] [place] [address] Allergies Active Allergy Reactions Criticality Noted Date Comments Banana 11/13/2019 Other reaction(s): Itching Black Solomon Pollen Allergy Skin Test Cough 05/06/2021 Other [...] Recorded PHQ Adult Total Score 16 10/04/2023 [facility] [place] of Occupat ional Health - Occupational Stress [...] as of this encounter Progress Notes * Kandis Douglas, MS - 10/02/2023 10:09 AM EDT Images from the original note were not included. This document is incomplete as it was created to prepare for patient's appointment with Dr. Mcgowan.Please see office visit from 10/10/2023 for full evaluation. Genetic Consult Patient: Kelli Lara Date: 10/10/2023 Time: 9:00 AM Reason for Referral: Suspected diagnosis of EDS Patient was referred to Genetics by Javier Sheffield MD (Ortho) Chief Complaint: Hypermobility arthralgia History of the chief complaint: See Dr. Mcgowan's documentation of the HPI. History: - Mother was 24 year old, G 1, P 1 at time of patient's delivery. - Father's age at delivery was 24 years. - Exposures: Other: None - Illness during : None - Chronic conditions: None - Complications of : None History: - Gestational age: Full Term - Delivery type: vaginal - Place of delivery: [facility] - Duration of ROM: unknown - Fluid description: no concerns - Cord description: no concerns - Complications: None History: - Weight 7 lbs 9 oz / length average / Head Circumference normal - Age at discharge few days - Location of stay: Nursery - Problems: None Past Medical History: Diagnosis Date ADD (attention deficit disorder) Anxiety COVID-19 02/13/2020 COVID-19 07/16/2022 Depression Past Surgical History: Procedure Laterality Date EXCISE LIP OR CHEEK FOLD 2007 Family History: Full pedigree completed and scanned into EMR. All information was collected by Kandis Douglas MS from [facility]. Review of Systems: Patient and Family General: Patient: Significant positives: Muscle tightness, GI-issues Family Member: Significant positives: Brother with EDS (clinically dx, no genetic testing). Pat cousin with Nuno's, pat aunt with hx leg cramping. PGF [...] heart issues- nos (dx 70s). PGU with [place] (d. 50s). Blood: Patient: Significant positives: None Family Member: Significant positives: None Central Nervous System: Patient: Significant positives: Anxiety, depression, ADD, PTSD, DID, autism, hx IEP Family Member: Significant positives: Brother with Autism spectrum disorder. Father with headaches and suspected autism spectrum disorder. MGF with brain tumor (dx 40s/50s- s/p surgery). All other systems negative. Maternal ethnicity: Lithuanian, Tunisian Paternal ethnicity: [place]ian, [place] Consanguinity: denied Anabaptist, Mennonite, Ashkenazi Taoism ancestry: slight AJ ancestry on father's side Social History: Kelli lives with ex-fiance. There is a cat at home. No smoke exposure. Development: -Speech impediment when little- had speech therapy around age 4. Motor milestones on time. - Comments: OT in school- had handwriting and dexterity issues. Prior Testing and Imaging: *Please refer to [facility] for a complete listing of all [...] healthcare in some time. Was previous seeing [facility] for gender dysphoria treatment. Out [...] well Nutrition 07/15/2021- Consult for DM2 management. documented in this encounter Plan of Treatment Upcoming Encounters Date Type Department Care Team (Late st Contact Info) Description 10/18/2023 2:00 PM EDT Telemedicine Psychology, [address] [place] [address] Argentina Souza, SUSSY 21 [facility] [place] [address] 11/22/2023 10:00 AM EDT Office Visit Family Practice [facility] 132 [facility] [place] [address] Analy Renteria MD 132 [facility] [place] [address] 11/30/2023 9:00 AM EDT Telemedicine Psychiatry, [address] [place] [address] Yanely Gracia CRNP 200 [facility] [address] Health Maintenance Due Date Last Done Comments [...] filedocumented as of this encounter Care Teams Account Strategist Relationship Specialty Start Date End Date Analy Renteria MD [address] [place] [address] PCP - General Internal Medicine 03/09/23 documented as of this encounter
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
--- OUTSIDE RECORDS SUMMARY | 2024-03-12 06:23 | External Medical Summary | Summary of Care ---
Author Name Unknown Organization [facility] Address [address] [facility] [place] [address] Phone [phone] Care Team Providers Care Senior Reliability Engineer Name Role Phone Analy Renteria MD Primary Care Provider Reason for Visit * Reason Comments Follow Up * - Authorized Specialty Diagnoses / Procedures Referred By Agatha t Referred To Contact Referral ID Status Reason Start Date Expiration Date V isits Requested Visits Authorized [id number] Authorized 06/15/2023 06/13/2024 [id number] Encounter Details Date Type Department Care Team (Late st Contact Info) Description 03/11/2024 3:30 PM EDT Telemedicine Psychology, [facility] 200 [place] [address] Argentina Souza, SUSSY [address] [place] [address] TY (generalized anxiety disorder)*; Severe episode of recurrent major depressive disorder, without psychotic features (HCC) Allergies Active Allergy Reactions Criticality Noted Date Comments Banana 11/13/2019 Other reaction(s): Itching Black [place] Pollen Allergy Skin Test Cough 05/06/2021 Other [...] Recorded PHQ Adult Total Score 22 02/23/2024 [facility] of Occupat ional Health - Occupational Stress [...] this encounter Progress Notes * Argentina Souza, MANAGER SUSTAINABILITY - 03/11/2024 3:28 PM EDT Patient location: HOME. I was not in a hospital or clinic location. After connecting through televideo, patient was verified with two unique identifiers. Patient (or authorized legal cordage sales representative) was then informed that this [...] that I have reviewed their record in [employer] and presented the opportunity for them to ask any questions regarding the visit today. The patient agreed to participate. Provider reviewed elements of Outpatient Services Description including limits of confidentiality, how to contact the department, risks and benefits of treatment and consent for treatment. Start Time: 3:30 Stop Time: 4:34 Total direct wlcr-ce-unom time: 64 minutes Confirm patient's location (and address if different from the home address documented in [facility]) at the time of this appointment: ADULT THERAPY PROGRESS NOTE Rashi [address] [place] [address] 03/11/2024 3:28 PM TYPE OF VISIT: Individual [...] an accident? (i.e work, motor vehicle) No L-Qdzg-Ytqteaev/Wjwubl-Mruu-Dczcfv Question 03/11/2024 2:59 PM EDT - Filed [...] Suicide/Homicidal Assessment Validated Screening and Assessment Measures Martin Suicide Severity Rating Scale Results 02/23/2024 12:05 [...] Plan Use Psych General Crisis Plan when Martin is No Risk or Low Risk Use [facility] Suicide Safety Plan when Martin is Moderate or High Risk, or whenever [...] Treatment Frequency of Treatment Yes, sent via [employer] 8-11 sessions approximately every 2-4 weeks Patient [...] & Behavioral Medicine [facility] [phone] documented in this encounter Plan of Treatment Upcoming Encounters Date Type Department Care Team (Late st Contact Info) Description 03/25/2024 3:30 PM EST Telemedicine Psychology, [facility] 200 [place] [address] Argentina Souza LSW 21 [facility] [place] [address] 04/08/2024 4:00 PM EST Office Visit [facility] Practice [facility] [place] [address] Analy Renteria MD [address] [place] [address] 04/12/2024 10:30 AM EST Telemedicine Pychiatry, [facility] [address] [place] [address] Clifton Rosas, DO 9 [facility] [address] Health Maintenance Due Date Last Done [...] (HCC) documented in this encounter Care Teams Senior Reliability Engineer Relationship Specialty Start Date End Date Analy Renteria MD [address] [place] [address] PCP - General Internal Medicine 03/09/23 documented as of this encounter
--- NOTE | 2024-03-12 09:11 | History & Physical ---
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 Diagnostically consistent with unspecified depression with differential including major depressive disorder vs acute exacerbation of BPD along with history and co-occurring diagnoses including ASD, ADHD, PTSD, DID, and physical challenges from recently diagnosed Solitario-Danlos. Discussed medication treatment options in detail. Discussed risks, benefits and alternatives. Patient would like to start and consented to sertraline for depression, PTSD, anxiety and augmentation to current Wellbutrin. She also consents to remaining on her prior to admission medications including Wellbutrin, Buspar, Adderall, and prazosin. Reviewed side effects including but not limited to: GI, SLATER, sexual side effects with sertraline, she is aware of side effects with FLIGHT OPERATION COORDINATOR medications including seizure risk with Wellbutrin, cardiac effects/low appetite/insomnia with Adderall and low BP/syncope with prazosin. MNPR gender diverse Overall I spent a total of 80 minutes for this admission including review of chart records, review of labwork, direct evaluation of the patient, counseling the patient, ordering medication, risk assessment, discussion with the psychiatric liason RN and documentation in the electronic health record. (1) Suicidal ideation: (2) Major depression, recurrent: (3) Borderline personality disorder: (4) Autism spectrum disorder: (5) Dissociative identity disorder: (6) ADHD (attention deficit hyperactivity disorder): (7) Post traumatic stress disorder (PTSD): (8) Generalized anxiety disorder with panic attacks: (9) Solitario-Danlos syndrome: Plan 03/12/2024: The patient was admitted to the [facility] ([facility]) on q15 min checks (behavioral with suicide precautions) for safety. The patient will participate in group, recreational, and milieu therapies and will be offered additional individual and family sessions as clinically appropriate. Medications: -start sertraline 50mg qAM -continue FLIGHT OPERATION COORDINATOR: Wellbutrin XL 300mg qd (recently increased), Buspar 15mg BID, prazosin 1mg HS -Adderall XR not on hospital formulary so will use Adderall IR 5mg qAM and qafternoon while admitted Use of weighted blanket prn Explore outpatient DBT options Inventory Assets Strengths: supportive relationships with long distant partners, willing to get treatment Needs: safety and stabilization, medication adjustment, additional coping skills, increased outpatient services Suicide Risk Level Suicide Risk Level: High-Moderate (q15 min suicide checks) (SI with plan and increased distress due to loss of friendships but feels safe in the hospital and able to ask for support) Risk Factors Assessment : Yes Do You Have Access To A Gun?: No Health Problems: Yes Mental Health Diagnoses: Yes Substance Use Disorders: No Previous Attempt: No Family History of Suicide: Yes (brother attempted) Previous Psychiatric Hospitalization: No Hopelessness: Yes Protective Factors Assessment Employed: Yes ([employer]) Stable Relationships: No Supportive Family: No Good Rapport with Provider: Yes Psychiatric History Identifying Data JENNA COBURN is a 28-year-old woman and [employer] student who currently lives off- campus with roommates, has a history of Solitario-Danlos syndrome, BPD, ASD (dx age 5 or 6), ADHD, PTSD, DID and was admitted on 03/12/24 04:45 on a 201 voluntary commitment for SI with plan of overdosing or jumping from a parking garage. Chief Complaint "Do you have a stuffy I could hold? I wish I brought mine". History of Present Illness Manuela came to the hospital for worsening depression with SI with plan in the context of multiple psychosocial stressors including friendship difficulties and feeling isolated. Since December SI has been "pretty constant" since coming back to school but yesterday escalated to the point of having a plan. She feels this was due to "BPD triggers" including the end of two friendships. Reports losing most of her support network due to breakups with partners and having to avoid certain "social spaces" due to not being able to be around old friends. She becomes tearful discussing this. Reports depressive symptoms including anhedonia, tearfulness, decreased sleep as often stays up too late, appetite fluctuates (sometimes skipping meals as a form of self-harm and restriction), hopelessness, helplessness, self-guilt and worthlessness. Reports increased anxiety as well. Thinks her PTSD and DID symptoms have worsened noting "I've been touching parts of my brain that are more bad recently like memories that are bad, I call it microwave brain", overall feels more "twitchy and scared" and more "dissociation" recently as "fuzzy soupy". She reports feeling scared when hearing people outside her room, possibly due to past trauma "I don't remember". Manuela often has overstimulation issues at work due bright lights and excessive stimulation and notes difficulty with social boundaries. She reports increased dissociation related to her DID diagnosis recently, though she feels this condition is less impairing than her other psychiatric conditions. She currently feels isolated, with limited social support. Manuela has two long- distance partners but doesn't communicate with them frequently. Current psychiatric medications include: Wellbutrin XL 300mg daily (increased from 150mg a few days ago), Buspar 15mg BID, Adderall ER and IR, prazosin 1mg HS (reduces nightmares and "nocturnal panic attacks", has been on this for a year). 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 No history of moreno nor psychosis. Past Psychiatric History Current Psychiatric Diagnosis: Unspecified depressive d/o Outpatient Services: [facility] for psychiatry (Dr. Rosas) and therapy Previous Psych Admissions: n/a Do You Have Access To A Gun?: No History of Previous Suicide Attempt: No (denies, came close to wanting to jump bridge but took a walk instead) Past Medication Trials: -Lexapro (caused sexual side effects) -lamictal (caused bad joint pain) Past Head Trauma/Neuro History History of Concussion/Seizure: No Allergies Allergy/AdvReac Type Severity Reaction Status Date / Time plum Allergy Intermediate Swelling Verified 03/12/24 11:30 of Lip/Tongue/Throat banana Allergy Unknown Verified 03/12/24 11:30 kiwi Allergy Unknown Verified 03/12/24 11:30 mushroom Allergy Unknown Verified 03/12/24 11:30 walnut Allergy Unknown Verified 03/12/24 11:30 scallops Allergy Unknown Uncoded 03/12/24 11:30 spanish cheese Allergy Unknown Uncoded 03/12/24 11:30 Home Medications Medication Instructions Recorded Confirmed Type bupropion HCl 300 mg 24 hr tablet, 300 mg PO DAILY 03/12/24 03/12/24 History extended release buspirone 15 mg tablet 15 mg PO BID 03/12/24 03/12/24 History dextroamphetamine-amphetamine 5 mg 5 mg PO DAILY 03/12/24 03/12/24 History tablet dextroamphetamine-amphetamine ER 10 mg PO DAILY 03/12/24 03/12/24 History 10 mg 24hr capsule,extend release (Adderall XR) estradiol valerate 20 mg/mL 2 mg IM WK 03/12/24 03/12/24 History intramuscular oil medroxyprogesterone 10 mg tablet 10 mg PO DAILY 03/12/24 03/12/24 History metformin 500 mg tablet 500 mg PO BID 03/12/24 03/12/24 History needle (disp) 18 G 18 gauge x 1" 03/12/24 03/12/24 History (BD Regular [place]) prazosin 1 mg capsule 1 mg PO HS 03/12/24 03/12/24 History syringe with needle 1 mL 25 gauge 03/12/24 03/12/24 History x 5/8" (BD Tuberculin Syringe) Family History Family History of: Suicide Attempts (younger brother) Alcohol History Hx of Alcohol Use Over the Past 12 Months: Yes (drinks an occasional beer) AUDIT Total Score: 1 Smoking Use Have You Smoked or Used Tobacco Products in the Last 30 Days: No Smoking Status: Never smoker Substance History Hx of Prescription Med Misuse Over the Past 12 Months: No Hx of Over the Counter Med Misuse Over the Past 12 Months: No Hx of Inhalent Misuse Over the Past 12 Months: No Hx of Organic Substance Use Over the Past 12 Months: No Hx of Illegal Substances/Street Drug Use Over Past 12 Months: No Problems as a Result of Past Substance Use: None Identified Very rare cannabis use in social settings Personal History Living Arrangements: Apartment Highest Grade Completed: Some College ([employer] senior, [employer]) 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 Marital Status: Single (two long distant partners but "don't talk too a lot") Number Of Children: n/a Beliefs That Will Affect Care: None Current Legal Problems: No Hx Legal Problems: No Hx Traumatic Life Events: Yes Patient History Social History Smoking Status: Never smoker Preferred Language: Welsh Communication Ability: Effective Furnace Builder Required: No Beliefs That Will Affect Care: None Feels Safe at Home: Hesitant to Answer Gender Identity: Transgender Female Assistive Devices: Glasses Review of Systems Review of Systems: All systems reviewed & are unremarkable except as noted in HPI & below Physical Exam Psychiatric: Orientation: alert and oriented x 3 Apperance: appropriately dressed and appropriately groomed Eye Contact: good eye contact Motor Behavior: no abnormal motor movements Speech: normal rate/rhythm/volume of speech Affect: + depressed affect and + anxious affect Mood: + depressed mood and + anxious mood Thought Process: goal directed thought process Thought Content: reality based without delusions Suicidal Thoughts: denies suicidal plan and denies suicidal intent; + reports suicidal thoughts (intermittent ) Homicidal Thoughts: denies homicidal thoughts Hallucinations: no auditory hallucinations and no visual hallucinations Cognition: recent memory grossly intact, remote memory grossly intact, attention grossly intact and language grossly intact Estimated Intelligence: consistent with education level Insight: + fair insight Judgment: + fair judgement Vital Signs (Past 24 Hours): Last Vital Signs Temp 36.7 C 03/12/24 06:11 Pulse 90 03/12/24 06:11 Resp 18 03/12/24 06:11 BP 133/80 03/12/24 06:11 Pulse Ox 97 03/12/24 06:11 O2 Del Method Room Air 03/12/24 06:11 Exam Statement: A physical exam was performed in the ED by Dr. Headley for the purposes of medical clearance. I accept that physical as correct and adequate for the purposes of the inpatient physical exam. Results & Data ([facility]) Laboratory Results Laboratory Results - last 24 hr 03/12/24 03/12/24 03/12/24 00:58 01:10 01:50 WBC 9.86 RBC 4.38 Hgb 12.2 Hct 35.7 L MCV 81.5 MCH 27.9 MCHC 34.2 RDW Std Deviation 36.8 RDW Coeff of [place] 12.5 Plt Count 215 MPV 11.4 Immature Gran % (Auto) 0.5 Neut % (Auto) 76.2 Lymph % (Auto) 16.5 [place] % (Auto) 5.3 Eos % (Auto) 1.0 Baso % (Auto) 0.5 Neut # (Auto) 7.51 H Lymph # (Auto) 1.63 [place] # (Auto) 0.52 Eos # (Auto) 0.10 Baso # (Auto) 0.05 Immature Gran # (Auto) 0.05 Sodium 135 L Potassium 3.6 Chloride 104 Carbon Dioxide 22 Anion Gap 9 BUN 11 Creatinine 0.72 Est Cr Clr Drug Dosing 147.2 eGFR 117.45 BUN/Creatinine Ratio 15.3 Glucose 102 H Calcium 9.5 Total Bilirubin 0.4 AST 11 L ALT 10 Alkaline Phosphatase 47 Total Protein 7.5 Albumin 4.5 Globulin 3.0 Albumin/Globulin Ratio 1.5 TSH 4.298 Urine Color Yellow Urine Appearance Turbid A Urine pH 7.0 Ur Specific [place] 1.024 Urine Protein Negative Urine Glucose (UA) Negative Urine Ketones Negative Urine Blood Negative Urine Nitrite Negative Urine Bilirubin Negative Urine Urobilinogen Negative Ur Leukocyte Esterase 1+ H Urine WBC (Auto) 11-20 H Urine RBC (Auto) 0-2 U Hyaline Cast (Auto) 0-2 U Epithel Cells (Auto) 6-10 H Urine Bacteria (Auto) 1+ H Salicylates < 3.0 L Urine Opiates Screen Neg Ur Methadone, Qual Neg Urine Fentanyl Screen Neg Acetaminophen < 3 L Urine Barbiturates Neg Ur Phencyclidine (PCP) Neg U Amphetamines Confirm Pending U Amphetamin/Meth Scrn Pos H U Methamphetamin Confrm Pending Urine MDEA Pending MDMA (Ecstasy) Screen Pos H MDMA Pending Urine MDMA Pending U Benzodiazepines Scrn Neg Ur Cocaine Metabolite Neg U Marijuana (THC) Screen Neg Drug Screen Comment Pending Ethyl Alcohol mg/dL < 10.0 SARS-CoV-2, RNA, NAAT NEGATIVE Current Inpatient Medications Current Inpatient Medications: Current Inpatient Medications Acetaminophen (Acetaminophen 325 Mg Tab) 650 mg PO Q4H PRN PRN Reason: Headache or Minor Fever Stop: 04/11/24 05:32 Al Hydrox/Mg Hydrox/Simethicone (Aluminum/Magnesium Susp 30 Ml Udc) 30 ml PO Q4H PRN PRN Reason: GI Upset Stop: 04/11/24 05:32 Bismuth Subsalicylate (Bismuth Subsalicylate 262 Mg Chew) 2 tab PO Q30M PRN PRN Reason: Loose Stool/Diarrhea Stop: 04/11/24 05:32 Hydroxyzine HCl (Hydroxyzine Hcl 25 Mg Tab) 50 mg PO HSZ PRN PRN Reason: Insomnia Stop: 04/11/24 05:32 Hydroxyzine HCl (Hydroxyzine Hcl 25 Mg Tab) 25 mg PO Q4H PRN PRN Reason: Anxiety Stop: 04/11/24 05:32 Magnesium Hydroxide (Magnesium Hydroxide Susp 30 Ml Udc) 30 ml PO DAILY PRN PRN Reason: Constipation Stop: 04/11/24 05:32 Sodium Chloride (Sodium Chloride 0.65% Na Soln 45 Ml ([place])) 1 - 2 sprays NA PRN PRN PRN Reason: Nasal Dryness/Congestion Stop: 04/11/24 05:32
[2024-03-12] MEDS: SERTRALINE HCL 50 MG TABLET PO SCH (13:23)
[2024-03-12] MEDS: busPIRone 15 MG TAB PO SCH (13:23)
[2024-03-12] MEDS: buPROPion XL 300 MG TABCR PO SCH (13:23)
[2024-03-12] MEDS: medroxyPROGESTERone ACETATE 10 MG TAB PO SCH (13:23)
[2024-03-12] MEDS: metFORMIN HCL 500 MG TAB PO SCH ×2 (13:23→18:23)
[2024-03-12] MEDS: DEXTROAMPHETAMINE/AMPHETAMIME IR 5 MG TAB PO SCH (15:23)
[2024-03-12 16:06] LABS: Hematocrit (blood only) 35.7 % (42.0-52.0); Hemoglobin 12.2 g/dl (14.0-18.0); Red Blood Count 4.38 M/uL (4.70-6.10)
[2024-03-12 16:07] LABS: Creatinine Clr Calc Pharmacy 169.2 ml/min
[2024-03-12] MEDS: PRAZOSIN HCL 1 MG CAP PO SCH (22:20)
[2024-03-13] MEDS: ACETAMINOPHEN 325 MG TAB PO PRN (07:21)
[2024-03-13] MEDS: DEXTROAMPHETAMINE/AMPHETAMINE ER 5 MG CAP PO SCH (08:58)
--- NOTE | 2024-03-13 09:15 | Psychiatric Progress Note ---
Date of Service March 13, 2024 Impression / Recommendations Impression JENNA COBURN is a 28-year-old woman and [employer] student who currently lives off- campus with roommates, has a history of Solitario-Danlos syndrome, BPD, ASD (dx age 5 or 6), ADHD, PTSD, DID and was admitted on 03/12/24 04:45 on a 201 voluntary commitment for SI with plan of overdosing or jumping from a parking garage. Diagnostically consistent with unspecified depression with differential including major depressive disorder vs acute exacerbation of BPD along with history and co-occurring diagnoses including ASD, ADHD, PTSD, DID, and physical challenges from recently diagnosed Solitario-Danlos. A: Ongoing depression and some increased anxiety today but with lessening of SI. Didn't sleep very well. She would like to reduce dose of Wellbutrin given concerns this may be worsening anxiety, and with hope that sertraline will offer increased benefit for depression and anxiety as it takes effect in the coming weeks. Agreeable to crisis peer referral for increased outpt support and connection. MNPR gender diverse Overall, I spent a total of 35 minutes on this case including meeting with the patient, reviewing the chart, nursing report, multidisciplinary team meeting, orders, and documentation. (1) Suicidal ideation: (2) Major depression, recurrent: (3) Borderline personality disorder: (4) Autism spectrum disorder: (5) Dissociative identity disorder: (6) ADHD (attention deficit hyperactivity disorder): (7) Post traumatic stress disorder (PTSD): (8) Generalized anxiety disorder with panic attacks: (9) Solitario-Danlos syndrome: Plan 03/13/2024: -Decrease Wellbutrin XL to 150mg daily 03/12/2024: The patient was admitted to the [facility] ([facility]) on q15 min checks (behavioral with suicide precautions) for safety. The patient will participate in group, recreational, and milieu therapies and will be offered additional individual and family sessions as clinically appropriate. Medications: -start sertraline 50mg qAM -continue SILVICULTURE FORESTER: Wellbutrin XL 300mg qd (recently increased), Buspar 15mg BID, prazosin 1mg HS -Adderall XR 10mg qAM and Adderall IR 5mg qafternoon Use of weighted blanket prn Explore outpatient DBT options Inventory Assets Strengths: supportive relationships with long distant partners, willing to get treatment Needs: safety and stabilization, medication adjustment, additional coping skills, increased outpatient services Suicide Risk Level Suicide Risk Level: Moderate (q15 min suicide checks) (SI with plan and increased distress due to loss of friendships SILVICULTURE FORESTER but feels supported after friend visited, SI lessening, feels safe in the hospital and able to ask for support) Risk Factors Assessment : Yes Do You Have Access To A Gun?: No Health Problems: Yes Mental Health Diagnoses: Yes Substance Use Disorders: No Previous Attempt: No Family History of Suicide: Yes (brother attempted) Previous Psychiatric Hospitalization: No Hopelessness: Yes Protective Factors Assessment Employed: Yes ([employer]) Stable Relationships: No Supportive Family: No Good Rapport with Provider: Yes Interval History Identifying Information JENNA COBURN is a 28-year-old woman and [employer] student who currently lives off- campus with roommates, has a history of Solitario-Danlos syndrome, BPD, ASD (dx age 5 or 6), ADHD, PTSD, DID and was admitted on 03/12/24 04:45 on a 201 voluntary commitment for SI with plan of overdosing or jumping from a parking garage. Chief Complaint "Really anxious". Review of Systems Sleep Information Total Hours of Sleep: 5.5 Sleep Comments: Meal Information Percent Meal Consumed - Breakfast: 100 Percent Meal Consumed - Lunch: 80 Percent Meal Consumed - Dinner: 90 Subjective Subjective Patient was seen & assessed and interval progress reviewed with treatment team nursing and social work. Attending groups, interacting with peers and encour aging a peer to be positive. Finding weighted blanket helpful. A friend visited in the evening. She reports a lot of anxiety today, feeling like she might hyperventilate. She thinks this could be from recent increase in Wellbutrin as this occurred last . She found higher dose helped focus but seems to be making anxiety worse. Denies any side effects from starting sertraline. She wants to reduce dose of Wellbutrin. Having a headache today, reviewed this could be side effect of sertraline, she requests ibuprofen. Had a good visit with her friend last night, reflects it can be hard for her to trust people and that they truly want to help her and be there as a friend. Having "less" SI today. Physical Exam Psychiatric Orientation: alert and oriented x 3 Apperance: appropriately dressed and appropriately groomed Eye Contact: good eye contact Motor Behavior: no abnormal motor movements Speech: normal rate/rhythm/volume of speech Affect: + anxious affect Mood: + depressed mood and + anxious mood Thought Process: goal directed thought process Thought Content: reality based without delusions Suicidal Thoughts: denies suicidal plan and denies suicidal intent; + reports suicidal thoughts (intermittent, lessening ) Homicidal Thoughts: denies homicidal thoughts Hallucinations: no auditory hallucinations and no visual hallucinations Cognition: recent memory grossly intact, remote memory grossly intact, attention grossly intact and language grossly intact Estimated Intelligence: consistent with education level Insight: + fair insight Judgment: + fair judgement Vital Signs (Past 24 Hours) Last Vital Signs Temp 36.3 C L 03/13/24 06:00 Pulse 98 H 03/13/24 06:00 Resp 16 03/13/24 06:00 BP 120/79 03/13/24 06:00 Pulse Ox 97 03/12/24 06:11 O2 Del Method Room Air 03/12/24 06:11 Results & Data (U) Laboratory Results Laboratory Results - last 24 hr 03/12/24 01:10 RBC 4.38 L Hgb 12.2 L Hct 35.7 L Creatinine 0.72 Est Cr Clr Drug Dosing 169.2 eGFR 128.42 Current Inpatient Medications Current Inpatient Medications: Current Inpatient Medications Acetaminophen (Acetaminophen 325 Mg Tab) 650 mg PO Q4H PRN PRN Reason: Headache or Minor Fever Stop: 04/11/24 05:32 Last Admin: 03/13/24 07:21 Dose: 650 mg Al Hydrox/Mg Hydrox/Simethicone (Aluminum/Magnesium Susp 30 Ml Udc) 30 ml PO Q4H PRN PRN Reason: GI Upset Stop: 04/11/24 05:32 Amphetamine/Dextroamphetamine (Dextroamphetamine/Amphetamine Er 5 Mg Cap) 10 mg PO QAM DWIGHT Stop: 03/27/24 08:59 Last Admin: 03/13/24 08:58 Dose: 10 mg Amphetamine/Dextroamphetamine (Dextroamphetamine/Amphetamime Ir 5 Mg Tab) 5 mg PO DAILY@1400 [facility] Stop: 03/26/24 13:59 Last Admin: 03/12/24 15:23 Dose: Not Given Bismuth Subsalicylate (Bismuth Subsalicylate 262 Mg Chew) 2 tab PO Q30M PRN PRN Reason: Loose Stool/Diarrhea Stop: 04/11/24 05:32 Bupropion HCl (Bupropion Xl 300 Mg Tabcr) 300 mg PO DAILY DWIGHT Stop: 04/11/24 12:59 Last Admin: 03/13/24 08:58 Dose: 300 mg Buspirone HCl (Buspirone 15 Mg Tab) 15 mg PO BID DWIGHT Stop: 04/11/24 12:44 Last Admin: 03/13/24 08:58 Dose: 15 mg Hydroxyzine HCl (Hydroxyzine Hcl 25 Mg Tab) 50 mg PO HSZ PRN PRN Reason: Insomnia Stop: 04/11/24 05:32 Hydroxyzine HCl (Hydroxyzine Hcl 25 Mg Tab) 25 mg PO Q4H PRN PRN Reason: Anxiety Stop: 04/11/24 05:32 Magnesium Hydroxide (Magnesium Hydroxide Susp 30 Ml Udc) 30 ml PO DAILY PRN PRN Reason: Constipation Stop: 04/11/24 05:32 Medroxyprogesterone Acetate (Medroxyprogesterone Acetate 10 Mg Tab) 10 mg PO HS DWIGHT Stop: 04/12/24 21:59 Metformin HCl (Metformin Hcl 500 Mg Tab) 500 mg PO BIDM DWIGHT Stop: 04/11/24 18:09 Last Admin: 03/13/24 08:58 Dose: 500 mg Prazosin HCl (Prazosin Hcl 1 Mg Cap) 1 mg PO HS DWIGHT Stop: 04/11/24 21:59 Last Admin: 03/12/24 22:20 Dose: 1 mg Sertraline HCl (Sertraline Hcl 50 Mg Tablet) 50 mg PO QAM DWIGHT Stop: 04/11/24 12:44 Last Admin: 03/13/24 08:58 Dose: 50 mg Sodium Chloride (Sodium Chloride 0.65% Na Soln 45 Ml ([employer])) 1 - 2 sprays NA PRN PRN PRN Reason: Nasal Dryness/Congestion Stop: 04/11/24 05:32 Mental Health & Subst Abuse Tx Therapist Name of Therapist: SUSSY Novak Psychology Oil Expert Name of Oil Expert: N/A
[2024-03-13] MEDS: hydrOXYzine HCl 25 MG TAB PO PRN (14:20)
[2024-03-13] MEDS: medroxyPROGESTERone ACETATE 10 MG TAB PO SCH (22:53)
[2024-03-14] MEDS: buPROPion XL 150 MG TABCR PO SCH (08:56)
--- NOTE | 2024-03-14 09:07 | Psychiatric Progress Note ---
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 Diagnostically consistent with unspecified depression with differential including major depressive disorder vs acute exacerbation of BPD along with history and co-occurring diagnoses including ASD, ADHD, PTSD, DID, and physical challenges from recently diagnosed Solitario-Danlos. A: Ongoing depression and some increased anxiety today but with lessening of SI. Didn't sleep very well. She would like to reduce dose of Wellbutrin given concerns this may be worsening anxiety, and with hope that sertraline will offer increased benefit for depression and anxiety as it takes effect in the coming weeks. Agreeable to crisis peer referral for increased outpt support and connection. [facility] gender diverse Overall, I spent a total of 35 minutes on this case including meeting with the patient, reviewing the chart, nursing report, multidisciplinary team meeting, orders, and documentation. (1) Suicidal ideation: (2) Major depression, recurrent: (3) Borderline personality disorder: (4) Autism spectrum disorder: (5) Dissociative identity disorder: (6) ADHD (attention deficit hyperactivity disorder): (7) Post traumatic stress disorder (PTSD): (8) Generalized anxiety disorder with panic attacks: (9) Solitario-Danlos syndrome: Plan 03/13/2024: -Decrease Wellbutrin XL to 150mg daily 03/12/2024: The patient was admitted to the [facility] ([facility] mental health unit) on q15 min checks (behavioral with suicide precautions) for safety. The patient will participate in group, recreational, and milieu therapies and will be offered additional individual and family sessions as clinically appropriate. Medications: -start sertraline 50mg qAM -continue [employer]: Wellbutrin XL 300mg qd (recently increased), Buspar 15mg BID, prazosin 1mg HS -Adderall XR 10mg qAM and Adderall IR 5mg qafternoon Use of weighted blanket prn Explore outpatient DBT options Inventory Assets Strengths: supportive relationships with long distant partners, willing to get treatment Needs: safety and stabilization, medication adjustment, additional coping skills, increased outpatient services Suicide Risk Level Suicide Risk Level: Moderate (q15 min suicide checks) (SI with plan and increased distress due to loss of friendships [employer] but feels supported after friend visited, SI lessening, feels safe in the hospital and able to ask for support) Risk Factors Assessment : Yes Do You Have Access To A Gun?: No Health Problems: Yes Mental Health Diagnoses: Yes Substance Use Disorders: No Previous Attempt: No Family History of Suicide: Yes (brother attempted) Previous Psychiatric Hospitalization: No Hopelessness: Yes Protective Factors Assessment Employed: Yes ([employer]) Stable Relationships: No Supportive Family: No Good Rapport with Provider: Yes Interval History Identifying Information JENNA COBURN is a 28-year-old woman and [employer] student who currently lives off- campus with roommates, has a history of Solitario-Danlos syndrome, BPD, ASD (dx age 5 or 6), ADHD, PTSD, DID and was admitted on 03/12/24 04:45 on a 201 voluntary commitment for SI with plan of overdosing or jumping from a parking garage. Chief Complaint "[]". Review of Systems Sleep Information Total Hours of Sleep: 6.30 Sleep Comments: meds Meal Information Percent Meal Consumed - Breakfast: 100 Percent Meal Consumed - Lunch: 80 Percent Meal Consumed - Dinner: 100 Subjective Subjective Patient was seen & assessed and interval progress reviewed with treatment team nursing and social work. Attending groups, used prn Vistaril. Napped after dinner. Interacting well with peers. Denying SI. Physical Exam Vital Signs (Past 24 Hours) Last Vital Signs Temp 35.9 C L 03/14/24 06:00 Pulse 94 H 03/14/24 06:12 Resp 16 03/14/24 06:00 BP 122/77 03/14/24 06:12 Pulse Ox 97 03/12/24 06:11 O2 Del Method Room Air 03/12/24 06:11 Results & Data ([facility] [[email or web address] Laboratory Results Laboratory Results - last 24 hr 03/13/24 16:57 POC Glucose 98 Current Inpatient Medications Current Inpatient Medications: Current Inpatient Medications Acetaminophen (Acetaminophen 325 Mg Tab) 650 mg PO Q4H PRN PRN Reason: Headache or Minor Fever Stop: 04/11/24 05:32 Last Admin: 03/13/24 07:21 Dose: 650 mg Al Hydrox/Mg Hydrox/Simethicone (Aluminum/Magnesium Susp 30 Ml Udc) 30 ml PO Q4H PRN PRN Reason: GI Upset Stop: 04/11/24 05:32 Amphetamine/Dextroamphetamine (Dextroamphetamine/Amphetamine Er 5 Mg Cap) 10 mg PO QAM [facility] Stop: 03/27/24 08:59 Last Admin: 03/14/24 08:57 Dose: 10 mg Amphetamine/Dextroamphetamine (Dextroamphetamine/Amphetamime Ir 5 Mg Tab) 5 mg PO DAILY@1400 [facility] Stop: 03/26/24 13:59 Last Admin: 03/13/24 14:11 Dose: Not Given Bismuth Subsalicylate (Bismuth Subsalicylate 262 Mg Chew) 2 tab PO Q30M PRN PRN Reason: Loose Stool/Diarrhea Stop: 04/11/24 05:32 Bupropion HCl (Bupropion Xl 150 Mg Tabcr) 150 mg PO DAILY [facility] Stop: 04/13/24 08:59 Last Admin: 03/14/24 08:56 Dose: 150 mg Buspirone HCl (Buspirone 15 Mg Tab) 15 mg PO BID [facility] Stop: 04/11/24 12:44 Last Admin: 03/14/24 08:57 Dose: 15 mg Hydroxyzine HCl (Hydroxyzine Hcl 25 Mg Tab) 50 mg PO HSZ PRN PRN Reason: Insomnia Stop: 04/11/24 05:32 Hydroxyzine HCl (Hydroxyzine Hcl 25 Mg Tab) 25 mg PO Q4H PRN PRN Reason: Anxiety Stop: 04/11/24 05:32 Last Admin: 03/13/24 14:20 Dose: 25 mg Ibuprofen (Ibuprofen 200 Mg Tab) 400 mg PO Q4H PRN PRN Reason: Headache or Pain Stop: 04/12/24 15:03 Magnesium Hydroxide (Magnesium Hydroxide Susp 30 Ml Udc) 30 ml PO DAILY PRN PRN Reason: Constipation Stop: 04/11/24 05:32 Medroxyprogesterone Acetate (Medroxyprogesterone Acetate 10 Mg Tab) 10 mg PO HS [facility] Stop: 04/12/24 21:59 Last Admin: 03/13/24 22:53 Dose: 10 mg Metformin HCl (Metformin Hcl 500 Mg Tab) 500 mg PO BIDM [facility] Stop: 04/11/24 18:09 Last Admin: 03/14/24 08:56 Dose: 500 mg Prazosin HCl (Prazosin Hcl 1 Mg Cap) 1 mg PO HS [facility] Stop: 04/11/24 21:59 Last Admin: 03/13/24 22:53 Dose: 1 mg Sertraline HCl (Sertraline Hcl 50 Mg Tablet) 50 mg PO QAM [facility] Stop: 04/11/24 12:44 Last Admin: 03/14/24 08:56 Dose: 50 mg Sodium Chloride (Sodium Chloride 0.65% Na Soln 45 Ml ([place])) 1 - 2 sprays NA PRN PRN PRN Reason: Nasal Dryness/Congestion Stop: 04/11/24 05:32 Mental Health & Subst Abuse Tx Psychiatrist Name of Psychiatrist: [facility] Date Of Appointment With Psychiatric Provider: 04/12/24 Time of Appointment with Psychiatrist: 10:30AM Psychiatric Appointment Comment: Video appt via [employer]. Added to waitlist for potential sooner appt Therapist Name of Therapist: SUS[facility] Date of Therapist Appointment: 03/22/24 Time of Therapist Appointment: 9AM Therapy Appointment Comment: Video appt via [employer] Major Case Detective Name of Major Case Detective: N/A Post Discharge Appointments Primary Care Physician Name Of Family Doctor/PCP: Dr. Analy Renteria Provider Appointment Comment: Referral/communication sent to PCP for PT [employer] Name of [employer]: [facility] - Crisis [employer] Phone Number of [employer] Operator: [phone] [employer] Appointment Comment: security specialist will contact you after discharge for scheduling
--- NOTE | 2024-03-14 12:28 | Discharge Summary ---
Date of Service March 14, 2024 History of Present Illness Manuela came to the hospital for worsening depression with SI with plan in the context of multiple psychosocial stressors including friendship difficulties and feeling isolated. Since December SI has been "pretty constant" since coming back to school but yesterday escalated to the point of having a plan. She feels this was due to "BPD triggers" including the end of two friendships. Reports losing most of her support network due to breakups with partners and having to avoid certain "social spaces" due to not being able to be around old friends. She becomes tearful discussing this. Reports depressive symptoms including anhedonia, tearfulness, decreased sleep as often stays up too late, appetite fluctuates (sometimes skipping meals as a form of self-harm and restriction), hopelessness, helplessness, self-guilt and worthlessness. Reports increased anxiety as well. Thinks her PTSD and DID symptoms have worsened noting "I've been touching parts of my brain that are more bad recently like memories that are bad, I call it microwave brain", overa ll feels more "twitchy and scared" and more "dissociation" recently as "fuzzy soupy". She reports feeling scared when hearing people outside her room, possibly due to past trauma "I don't remember". Manuela often has overstimulation issues at work due bright lights and excessive stimulation and notes difficulty with social boundaries. She reports increased dissociation related to her DID diagnosis recently, though she feels this condition is less impairing than her other psychiatric conditions. She currently feels isolated, with limited social support. Manuela has two long- distance partners but doesn't communicate with them frequently. Current psychiatric medications include: Wellbutrin XL 300mg daily (increased from 150mg a few days ago), Buspar 15mg BID, Adderall ER and IR, prazosin 1mg HS (reduces nightmares and "nocturnal panic attacks", has been on this for a year). 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 No history of moreno nor psychosis. Physical Exam Vital Signs (Past 24 Hours) Last Vital Signs Temp 35.9 C L 03/14/24 06:00 Pulse 94 H 03/14/24 06:12 Resp 16 03/14/24 06:00 BP 122/77 03/14/24 06:12 Pulse Ox 97 03/12/24 06:11 O2 Del Method Room Air 03/12/24 06:11 Principal Diagnosis Major Depressive Disorder, recurrent Psychiatric Data See daily stay summary. In short, patient was engaged with the social/therapeutic milieu of the unit, safety was maintained and the patient was cooperative with care. Medication changes included dose reduction of Wellbutrin XL to 150mg daily for depression (due to concern it was contributing to increased anxiety) and initiation of sertraline 50mg daily for depression augmentation and anxiety as well as Vistaril 25mg daily prn for panic attacks/anxiety and they tolerated this well. A support session was held and safety plan was completed prior to discharge. She participated in safety planning and in discussions about ways to seek support and recognizing warning signs and utilizing coping skills. Reviewed ways to have her safety plan and contacts easily available should thoughts of SI re- emerge in the future. Reviewed importance of seeking emergency care should SI intensify, worsen or should she feel unsafe in the future which she agrees to do. On the day of discharge she stated her mood was "a little excited, ready to go" and remained future-oriented including getting back to classes, seeing her f riends and engaging in aftercare appointments for psychiatry, therapy and crisis peer support. Day of Discharge Assessment Today the patient voices readiness for discharge. They note improvement in mood and anxiety. They deny thoughts of harm to self or others. Thoughts are organized and they are clinically improved from admission. There is no evidence of psychosis. They improved in the hospital with support and medication adjustments. They agree to take medications as prescribed and keep follow-up appointments. At the time of the discharge they are deemed to be stable and appropriate for outpatient level of care. They are not deemed to be at imminent risk of harm to self or others. They are aware of emergency and crisis services. Knows to call 911 or go to nearest emergency care center if in a crisis which cannot be handled as an outpatient. Suicide risk assessment: Acute risk is low given improvement in mood and denial of SI, lack of access to lethal means, improvement in sleep, hopefulness and improvement in anxiety. Chronic risk is moderate to high given some non-modifiable risk factors: psychiatric co-morbid diagnoses, periods of impulsivity, hx self-harm, emotional reactivity, chronic illness, limited social support, cluster B personality disorder, childhood trauma but also with protective factors including: employed, student, some close friends, sense of responsibility to family and social supports, outpatient care in place, positive coping skills, positive problem solving, willingness to engage with treatment. Counseled on ways to reduce acute and chronic risk including engaging with outpatient providers, using safety plan if needed, utilizing supports, taking medication, and using coping skills including goal of DBT specific skills for coping with distress. Modifiable risk factors of SI, anxiety and depression were addressed during hospitalization through development of new coping skills, support meeting, safety planning, and medication adjustments. Discharge physical exam: See admission H&P, MSE per above and day of discharge summary. Overall, I spent a total of 35 minutes on this case including meeting with the patient, reviewing the chart, nursing report, multidisciplinary team meeting, discharge orders, anticipatory planning, safety planning, risk assessment and documentation. Transition of Care Transition Of Care Record: was reviewed with the patient Advance Directives Advance Directives Information Provided: Yes Advance Directives: No Mental Health Advance Directive: No Advance Directives on File: No Living Will: No Power of Revenue Specialist: No Advance Directives Reason:: Declines as Mental Health Visit. Suicide Risk Level Suicide Risk Level Comments: Acute risk is low, see further assessment above Risk Factors Assessment : Yes Do You Have Access To A Gun?: No Health Problems: Yes Mental Health Diagnoses: Yes Substance Use Disorders: No Previous Attempt: No Family History of Suicide: Yes (brother attempted) Previous Psychiatric Hospitalization: No Hopelessness: No Protective Factors Assessment Employed: Yes ([employer]) Stable Relationships: No (but does have friends who supported her during this admission ) Supportive Family: No Good Rapport with Provider: Yes Discharge Data Lab Results 03/12/24 03/12/24 03/12/24 00:58 01:10 01:50 WBC 9.86 RBC 4.38 L Hgb 12.2 L Hct 35.7 L MCV 81.5 MCH 27.9 MCHC 34.2 RDW Std Deviation 36.8 RDW Coeff of Celso 12.5 Plt Count 215 MPV 11.4 Immature Gran % (Auto) 0.5 Neut % (Auto) 76.2 Lymph % (Auto) 16.5 [place] % (Auto) 5.3 Eos % (Auto) 1.0 Baso % (Auto) 0.5 Neut # (Auto) 7.51 H Lymph # (Auto) 1.63 [place] # (Auto) 0.52 Eos # (Auto) 0.10 Baso # (Auto) 0.05 Immature Gran # (Auto) 0.05 Sodium 135 L Potassium 3.6 Chloride 104 Carbon Dioxide 22 Anion Gap 9 BUN 11 Creatinine 0.72 Est Cr Clr Drug Dosing 169.2 eGFR 128.42 BUN/Creatinine Ratio 15.3 Glucose 102 H POC Glucose Calcium 9.5 Total Bilirubin 0.4 AST 11 L ALT 10 Alkaline Phosphatase 47 Total Protein 7.5 Albumin 4.5 Globulin 3.0 Albumin/Globulin Ratio 1.5 TSH 4.298 Urine Color Yellow Urine Appearance Turbid A Urine pH 7.0 Ur Specific [place] 1.024 Urine Protein Negative Urine Glucose (UA) Negative Urine Ketones Negative Urine Blood Negative Urine Nitrite Negative Urine Bilirubin Negative Urine Urobilinogen Negative Ur Leukocyte Esterase 1+ H Urine WBC (Auto) 11-20 H Urine RBC (Auto) 0-2 U Hyaline Cast (Auto) 0-2 U Epithel Cells (Auto) 6-10 H Urine Bacteria (Auto) 1+ H Salicylates < 3.0 L Urine Opiates Screen Neg Ur Methadone, Qual Neg Urine Fentanyl Screen Neg Acetaminophen < 3 L Urine Barbiturates Neg Ur Phencyclidine (PCP) Neg U Amphetamin/Meth Scrn Pos H MDMA (Ecstasy) Screen Pos H U Benzodiazepines Scrn Neg Ur Cocaine Metabolite Neg U Marijuana (THC) Screen Neg Ethyl Alcohol mg/dL < 10.0 SARS-CoV-2, RNA, NAAT NEGATIVE 03/13/24 16:57 WBC RBC Hgb Hct MCV MCH MCHC RDW Std Deviation RDW Coeff of [place] Plt Count MPV Immature Gran % (Auto) Neut % (Auto) Lymph % (Auto) [place] % (Auto) Eos % (Auto) Baso % (Auto) Neut # (Auto) Lymph # (Auto) [place] # (Auto) Eos # (Auto) Baso # (Auto) Immature Gran # (Auto) Sodium Potassium Chloride Carbon Dioxide Anion Gap BUN Creatinine Est Cr Clr Drug Dosing eGFR BUN/Creatinine Ratio Glucose POC Glucose 98 Calcium Total Bilirubin AST ALT Alkaline Phosphatase Total Protein Albumin Globulin Albumin/Globulin Ratio TSH Urine Color Urine Appearance Urine pH Ur Specific [place] Urine Protein Urine Glucose (UA) Urine Ketones Urine Blood Urine Nitrite Urine Bilirubin Urine Urobilinogen Ur Leukocyte Esterase Urine WBC (Auto) Urine RBC (Auto) U Hyaline Cast (Auto) U Epithel Cells (Auto) Urine Bacteria (Auto) Salicylates Urine Opiates Screen Ur Methadone, Qual Urine Fentanyl Screen Acetaminophen Urine Barbiturates Ur Phencyclidine (PCP) U Amphetamin/Meth Scrn MDMA (Ecstasy) Screen U Benzodiazepines Scrn Ur Cocaine Metabolite U Marijuana (THC) Screen Ethyl Alcohol mg/dL SARS-CoV-2, RNA, NAAT Hospital Course (1) Suicidal ideation: (2) Major depression, recurrent: (3) Borderline personality disorder: (4) Autism spectrum disorder: (5) Dissociative identity disorder: (6) ADHD (attention deficit hyperactivity disorder): (7) Post traumatic stress disorder (PTSD): (8) Generalized anxiety disorder with panic attacks: (9) Solitario-Danlos syndrome: Plan 03/14/2024: Mood improved, slept well, significantly decreased anxiety, she feels safe and would like to discharge after her support meeting today. 03/13/2024: -Decrease Wellbutrin XL to 150mg daily 03/12/2024: The patient was admitted to the [facility] ([facility] mental health unit) on q15 min checks (behavioral with suicide precautions) for safety. The patient will participate in group, recreational, and milieu therapies and will be offered additional individual and family sessions as clinically appropriate. 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 Rosas, [facility] Date Of Appointment With Psychiatric Provider: 04/12/24 Time of Appointment with Psychiatrist: 10:30AM Psychiatric Appointment Comment: Video appt via [email or web address]. Added to waitlist for potential sooner appt Therapist Name of Therapist: S[facility] Date of Therapist Appointment: 03/22/24 Time of Therapist Appointment: 9AM Therapy Appointment Comment: Video appt via [email or web address] Package Winder Name of Package Winder: N/A Post Discharge Appointments Primary Care Physician Name Of Family Doctor/PCP: Dr. Analy Renteria Provider Appointment Comment: Referral/communication sent to PCP for PT Photographic Process Attendant Name of Photographic Process Attendant: [place] [facility] - Crisis Photographic Process Attendant Phone Number of Photographic Process Attendant: [phone] Photographic Process Attendant Appointment Comment: marine habitat resource specialist will contact you after discharge for scheduling Other #1: Name of Aftercare Appointment: [facility] post hospitalization zoom meeting (student care and advocacy) Phone Number of Aftercare Appointment: [phone] Date of Aftercare Appointment: 03/15/24 Time of Aftercare Appointment: 2PM Aftercare Appointment Comment: Zoom [facility] Discharge Plan Discharge Items Patient Disposition: Home - Self-Care Reason For Visit: DEPRESSION, SI WITH PLAN Discharge Diagnosis: Major Depressive Disorder, recurrent Activity: Resume your previous activity Non-emergency contact: Primary Care Provider, Psychiatrist and Therapist Call non-emergency contact if: you have any medication questions and your symptoms worsen Follow-up/Referrals: Analy Renteria MD [Primary Care Provider] - Diet: Regular Addtl Attending Provider Instructions: Optional mobile apps: -Suicide safety plan -Virtual Hope Box SPECIAL CARE INSTRUCTIONS: 1. Follow through with your scheduled aftercare appointments. If unable to keep an appointment, please call to reschedule. 2. Take your medication only as prescribed. Medication should not be changed or stopped without the approval of your doctor. In the event of worsening symptoms or concerns about side effects, contact your doctor immediately. 3. Utilize new healthy coping skills, anger management skills, and stress management skills learned during your hospitalization. Journal feelings and process them with a support person. Identify stressors or situations that may result in relapse, deterioration or inappropriate behaviors and develop a plan to deal with those issues. 4. If your coping skills are ineffective and you are in crisis, contact your outpatient providers for direction. If unable to reach your providers, please call the [facility] CRISIS LINE AT , go to the [facility] walk-in center at [address], [address], [place], or go to the closest Emergency Room. 5. Avoid alcohol and un-prescribed drugs. 6. You have been provided with the Mental Health Advance Directives Pamphlet for your review. 7. Your condition is stable for discharge to outpatient level of care, but recovery is an ongoing process. Ifthoughts to harm yourself or others return, follow the safety plan developed during your stay. Planning for a safe return home includes securing weapons. Our treatment team recommends weaponsbe removed from the home until your outpatient provider reassesses your progress. In rare cases where the items themselvescannot be removed, guns and ammunitionshould be secured separatelyand keys stored by a reliable personoutside of the home. If you were admitted on an involuntary commitment, the police or other legal authorities may be involved in this process. AFTERCARE APPOINTMENTS: * Please call your insurance company prior to your scheduled appointment to confirm your aftercare providers are covered. Take your insurance information to your hilario Mistic[employer]. WHO TO CALL AND WHEN: Medical Emergencies: For questions or emergencies related to your hospital stay, please contact the Inpatient Behavioral Health Unit at [phone]. A mushroom cutter is on-call 05/12 for the Behavioral Health Unit for emergencies At any time you feel your situation is an emergency, you may also call 911 immediately. [place] Crisis Hotline: 988 Pending Studies at Discharge: No Stand-Alone Forms: [facility] Medications and DC Order Prescriptions: New sertraline 50 mg Tablet 50 mg PO QAM 30 Days Qty: 30 0RF bupropion HCl 150 mg Tablet Extended Release 24 Hr 150 mg PO DAILY 30 Days Qty: 30 0RF hydroxyzine HCl 25 mg Tablet 25 mg PO DAILY PRN (Reason: anxiety/insomnia) 30 Days Qty: 30 0RF Continued medroxyprogesterone 10 mg tablet 10 mg PO DAILY metformin 500 mg tablet 500 mg PO BID Rx Instructions: with meals prazosin 1 mg capsule 1 mg PO HS (DME) needle (disp) 18 G [BD Regular [place]vel [place]] 18 gauge x 1" needle MISCELLANEOUS (DME) BD Tuberculin Syringe 1 mL 25 gauge x 5/8" syringe MISCELLANEOUS estradiol valerate 20 mg/mL oil 2 mg IM WK dextroamphetamine-amphetamine [Adderall XR] 10 mg capsule,extended release 24hr 10 mg PO DAILY Rx Instructions: AM dextroamphetamine-amphetamine 5 mg tablet 5 mg PO DAILY buspirone 15 mg tablet 15 mg PO BID Discontinued bupropion HCl 300 mg tablet extended release 24 hr 300 mg PO DAILY Discharge Orders: Discharge Order (Routine); Ordered 03/14/24 Ordered By: Bella Keane Admission Data Admit Date/Time: 03/12/24 04:45 Attending Provider: Bella Keane Admit Provider: Bella Keane Primary Care Provider: Analy Renteria Other Interventions: Discharge Summary Assessment (RN) Last Done: 03/14/24 13:37 Coding Level of Care Code 53099 D/C day mgmt > 30 min Diagnoses Suicidal ideation R45.851 Major depression, recurrent F33.9 Borderline personality disorder F60.3 Autism spectrum disorder F84.0 Dissociative identity disorder F44.81 ADHD (attention deficit hyperactivity disorder) F90.9 Post traumatic stress disorder (PTSD) F43.10 Generalized anxiety disorder with panic attacks F41.1; 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
[2024-03-14] MEDS: IBUPROFEN 200 MG TAB PO PRN (12:52)
[2024-03-14] MEDS: DEXTROAMPHETAMINE/AMPHETAMIME IR 5 MG TAB PO SCH (15:11)
[2024-03-16] MEDS ORDERED: ESTRADIOL VALERATE 20 MG/ML IM SCH (11:30)
[2024-03-16] MEDS ORDERED: OIL IM SCH (11:30)
[2024-03-16] MEDS ORDERED: ESTRADIOL VALERATE IM SCH (11:30)
[2024-03-20 12:28] LABS: Amphetamine Urine, Confirm 2220 ng/mL (<250); MDA negative; MDEA negative; MDMA (Ecstasy) Urine, Confirm negative; Methamphetamine, Ur Confirm NEGATIVE ng/mL (<250)
== END 2024-03-14 15:50 | disposition home or self-care (01) | DRG 885 ==
LOC: EDSEX → ED 00:53 → EDSEX 00:53 → 3S 04:45